=== PATIENT | male | born 1980 | race Caucasian/White ===

== ENCOUNTER 2016-06-18 12:57 | Inpatient (IN) | payer OTHER ==
[2016-06-18 14:00] VITALS: BMI 24.2
--- NOTE | 2016-06-18 14:46 | HP ---
COWS - Scale Resting Pulse: 0= [place] 80 or Below Sweatin=Flushed/Facial Moisture Restless Observation: 1= Difficult to Sit Still Pupil Size: 0= Normal to Room Light Bone or Joint Aches: 2= Severe Diffuse Aches Runny Nose/ Eye Tearin= Runny Nose/Eyes GI Upset > 30mins: 1= Stomach Cramp Tremor Observation: 2= Slight Tremor Visible Yawning Observation: 2= >3x During Session Anxiety or Irritability: 2=Irritable/Anxious Goose Flesh Skin: 3=Piloerection COWS Score: 17 Admission ROS S - HPI Chief Complaint: My birthday is coming up and I want to be clean. I need help. Allergies/Adverse Reactions: Allergies Allergy/AdvReac Type Severity Reaction Status Date / Time No Known Allergies Allergy Verified 06/18/16 14:38 History of Present Illness: Pt is a 35yr old male with a history of heroin and xanax dependence seeking detox for treatment. Exam Limitations: No Limitations - Ebola screening Have you traveled outside of the country in the last 21 days: No Have you had contact with anyone from an Ebola affected area: No Have you been sick,other than usual withdrawal symptoms: No Do you have a fever: No - Review of Systems Constitutional: Diaphoresis, Loss of Appetite, Night Sweats, Changes in sleep, Unintentional Wgt. Loss EENT: reports: Tearing, Nose Congestion Respiratory: reports: No Symptoms reported Cardiac: reports: No Symptoms Reported GI: reports: Poor Appetite, Poor Fluid Intake : reports: No Symptoms Reported Musculoskeletal: reports: No Symptoms Reported Integumentary: reports: Flushing, Sweating Neuro: reports: Tingling, Tremors Endocrine: reports: Excessive Sweating, Flushing, Intolerance to Cold, Intolerance to Heat Hematology: reports: No Symptoms Reported Psychiatric: reports: Judgement Intact, Mood/Affect Appropiate, Orientated x3, Agitated, Anxious Other Systems: Reviewed and Negative Patient History - Patient Medical History Hx Anemia: No Hx Asthma: No Hx Chronic Obstructive Pulmonary Disease (COPD): No Hx Cancer: No Hx Cardiac Disorders: No Hx Congestive Heart Failure: No Hx Hypertension: No Hx Hypercholesterolemia: No Hx Pacemaker: No HX Cerebrovascular Accident: No Hx Seizures: No Hx Dementia: No Hx Diabetes: No Hx Gastrointestinal Disorders: No Hx Liver Disease: No Hx Genitourinary Disorders: No Hx Sexually Transmitted Disorders: No Hx Renal Disease (ESRD): No Hx Thyroid Disease: No Hx Human Immunodeficiency Virus (HIV): No (negative) Hx Hepatitis C: No Hx Depression: Yes Hx Suicide Attempt: No (denies) Hx Bipolar Disorder: No Hx Schizophrenia: No - Patient Surgical History Past Surgical History: No - PPD History Previous Implant?: Yes Documented Results: Negative w/o proof PPD to be Administered?: Yes - Reproductive History Patient is a Female of Child Bearing Age (11 -55 yrs old): Yes - Smoking Cessation Smoking history: Current every day smoker Have you smoked in the past 12 months: Yes Aproximately how many cigarettes per day: 5 Hx Chewing Tobacco Use: No Initiated information on smoking cessation: Yes 'Breaking Loose' booklet given: 06/18/16 - Substance & Tx. History Hx Alcohol Use: No Substance Use Type: Cocaine, Heroin, Tranquilizers Hx Substance Use Treatment: Yes - Substances Abused Heroin Route: Inhalation Frequency: Daily Amount used: 3-5 bags Age of first use: 31 Date of Last Use: 06/17/16 Cocaine Route: Inhalation Frequency: 3-6 times per week Amount used: $20 Age of first use: 28 Date of Last Use: 06/17/16 Xanax Route: Oral Frequency: 1-2 times per week Amount used: 1-2 mg. Age of first use: 35 Date of Last Use: 06/17/16 Family Disease History - Family Disease History Family History: Denies Admission Physical Exam BHS - Vital Signs Vital Signs: Vital Signs - 24 hr 06/18/16 13:58 Temperature 96.8 F L Pulse Rate 77 Respiratory 18 Rate Blood Pressure 118/66 - Physical General Appearance: Yes: Appropriately Dressed, Moderate Distress, Tremorous, Irritable, Sweating, Anxious HEENTM: Yes: Hearing grossly Normal, Normal Voice Respiratory: Yes: Lungs Clear, Normal Breath Sounds, No Respiratory Distress Neck: Yes: Within Normal Limits Breast: Yes: Within Normal Limits Cardiology: Yes: Regular Rhythm, Regular Rate, S1, S2 Abdominal: Yes: Normal Bowel Sounds, Non Tender, Soft Genitourinary: Yes: Within Normal Limits Back: Yes: Normal Inspection Musculoskeletal: Yes: full range of Motion, Gait Steady, Back pain Extremities: Yes: Normal Capillary Refill, Normal Inspection, Non-Tender, Tremors Neurological: Yes: Fully Oriented, Alert, Normal Response Integumentary: Yes: Normal Color, Diaphoresis Lymphatic: Yes: Within Normal Limits - Diagnostic (1) Opioid dependence with withdrawal Current Visit: Yes Status: Chronic (2) Cocaine dependence Current Visit: Yes Status: Chronic Qualifiers: Substance use status: uncomplicated Qualified Code(s): F14.20 - Cocaine dependence, uncomplicated (3) Xanax use disorder, mild Current Visit: Yes Status: Chronic (4) Nicotine dependence Current Visit: Yes Status: Chronic Qualifiers: Nicotine product type: cigarettes Substance use status: uncomplicated Qualified Code(s): F17.210 - Nicotine dependence, cigarettes, uncomplicated Cleared for Admission [facility] - Detox or Rehab [facility] Level of Care: Medically Managed Detox Regimen/Protocol: Methadone [facility] Breath Alcohol Content Breath Alcohol Content: 0 Urine Drug Screen - Results Drug Screen Negative: No Urine Drug Screen Results: THC-Marijuana, MAGDA-Cocaine, OPI-Opiates, MDMA-Ecstasy , BZO-Benzodiazepines, OXY-Oxycodone
[2016-06-18] MEDS ORDERED: ACETAMINOPHEN 325 MG TABLET (FP) PO PRN (15:09)
[2016-06-18] MEDS ORDERED: MAG HYDROX/AL HYDROX/SIMETH 30 ML UNIT-DOSE CUP PO PRN (15:09)
[2016-06-18] MEDS ORDERED: LOPERAMIDE HCL 2 MG CAPSULE PO PRN (15:09)
[2016-06-18] MEDS ORDERED: hydrOXYzine PAMOATE 50 MG CAPSULE (FP) PO PRN (15:09)
[2016-06-18] MEDS ORDERED: MAGNESIUM CITRATE 300 ML BOTTLE PO PRN (15:09)
[2016-06-18] MEDS ORDERED: IBUPROFEN 400 MG TABLET (FP) PO PRN (15:09)
[2016-06-18] MEDS ORDERED: MENTHOL/PHENOL 1 EACH UD MM PRN (15:09)
[2016-06-18] MEDS ORDERED: MAGNESIUM HYDROX 2400MG/30ML ORAL SUSPENSION 30 ML CUP PO PRN (15:09)
[2016-06-18] MEDS ORDERED: P-EPHED 60MG/TRIPROLIDI 2.5MG TABLET PO PRN (15:09)
[2016-06-18] MEDS ORDERED: guaiFENesin/D-METHORPHAN HB 10 ML UNIT-DOSE CUPS PO PRN (15:09)
[2016-06-18] MEDS ORDERED: diphenhydrAMINE HCL 50 MG CAPSULE PO PRN (15:09)
[2016-06-18] MEDS ORDERED: METHADONE HCL 10 MG TABLET (FOR DETOX USE ONLY) PO ONE ×2 (16:45→23:00)
[2016-06-18] MEDS: diazePAM 5 MG TABLET PO PRN ×2 (17:01→23:03)
[2016-06-18] MEDS: THIAMINE HCL 100 MG TABLET (FP) PO SCH (22:09)
[2016-06-18 23:16] LABS: URINE APPEARANCE CLEAR; URINE BILIRUBIN NEGATIVE (NEGATIVE); URINE BLOOD NEGATIVE (NEGATIVE); URINE COLOR YELLOW; URINE GLUCOSE (UA) NEGATIVE (NEGATIVE); URINE KETONE NEGATIVE (NEGATIVE); URINE LEUK ESTERASE NEGATIVE (NEGATIVE); URINE NITRITE NEGATIVE (NEGATIVE); URINE PROTEIN NEGATIVE (NEGATIVE); URINE UROBILINOGEN NEGATIVE E.U./dl (0.2-1.0)
[2016-06-19] MEDS ORDERED: METHADONE HCL 10 MG TABLET (FOR DETOX USE ONLY) PO ONE (10:00)
[2016-06-19 10:08] LABS: MCHC 34.2 g/dl (32.0-35.9); MEAN CELL VOLUME 90.5 fl (80-96); MEAN PLT VOLUME 9.6 fl (7.5-11.1); PLATELET COUNT 252 K/MM3 (134-434); RDW 12.8 % (11.9-15.9); WHITE BLOOD COUNT 10.4 K/mm3 (4.0-10.0)
[2016-06-19 10:44] LABS: HIV 1 & 2 AB NEGATIVE; HIV 1 AGp24 NEGATIVE
[2016-06-19 10:47] LABS: ALK PHOS 72 U/L (45-117); ANION GAP 9 (8-16); BILIRUBIN,TOTAL 0.4 mg/dL (0.2-1.0); CALCIUM 8.5 mg/dL (8.5-10.1); CO2 31 mmol/L (21-32); GLUCOSE,RANDOM 83 mg/dL (74-106); SGOT/AST 11 U/L (15-37); SGPT/ALT 19 U/L (12-78); TOT PROT 6.7 g/dl (6.4-8.2)
--- NOTE | 2016-06-19 10:50 | PN ---
S CIWA - CIWA Score Nausea/Vomitin Muscle Tremors: 3 Anxiety: 3 Agitation: 3 Paroxysmal Sweats: 1-Minimal Palms Moist Orientation: 0-Oriented Tacttile Disturbances: 1-Very Mild Itch/Numbness Auditory Disturbances: 1-Very Mild Visual Disturbances: 1-Very Mild Sensitivity Headache: 2-Mild CIWA-Ar Total Score: 18 BHS COWS - Scale Resting Pulse: 0= [place] 80 or Below Sweatin= Chills/Flushing Restless Observation: 3= Extraneous Movement Pupil Size: 1= Pupils >than Normal Bone or Joint Aches: 2= Severe Diffuse Aches Runny Nose/ Eye Tearin= Runny Nose/Eyes GI Upset > 30mins: 3= Vomiting/Diarrhea Tremor Observation of Outstretched Hands: 2= Slight Tremor Visible Yawning Observation: 1= 1-2x During Session Anxiety or Irritability: 2=Irritable/Anxious Goose Flesh Skin: 0=Smooth Skin COWS Score: 17 S Progress Note (SOAP) Subjective: ALERT,IRRITABLE,ANXIOUS,INTERRUPTED SLEEP,TREMOR,PAIN IN THE BODY AND BACK Objective: 06/19/16 10:52 Vital Signs Temperature 98.1 F 06/19/16 10:26 Pulse Rate 62 06/19/16 10:26 Respiratory Rate 16 06/19/16 10:26 Blood Pressure 115/55 06/19/16 10:26 O2 Sat by Pulse Oximetry (%) EKG NSR Laboratory Last Values WBC 10.4 K/mm3 (4.0-10.0) H 06/19/16 06:00 RBC 4.35 M/mm3 (4.00-5.60) 06/19/16 06:00 Hgb 13.5 GM/dL (11.7-16.9) 06/19/16 06:00 Hct 39.3 % (35.4-49) 06/19/16 06:00 MCV 90.5 fl (80-96) 06/19/16 06:00 MCHC 34.2 g/dl (32.0-35.9) 06/19/16 06:00 RDW 12.8 % (11.9-15.9) 06/19/16 06:00 Plt Count 252 K/MM3 (134-434) 06/19/16 06:00 MPV 9.6 fl (7.5-11.1) 06/19/16 06:00 Sodium 144 mmol/L (136-145) 06/19/16 06:00 Potassium 4.0 mmol/L (3.5-5.1) 06/19/16 06:00 Chloride 104 mmol/L (98-107) 06/19/16 06:00 Urine Color Yellow 06/18/16 23:00 Urine Appearance Clear 06/18/16 23:00 Urine pH 5.0 (5.0-8.0) 06/18/16 23:00 Ur Specific [place] 1.029 (1.001-1.035) 06/18/16 23:00 Urine Protein Negative (NEGATIVE) 06/18/16 23:00 Urine Glucose (UA) Negative (NEGATIVE) 06/18/16 23:00 Urine Ketones Negative (NEGATIVE) 06/18/16 23:00 Urine Blood Negative (NEGATIVE) 06/18/16 23:00 Urine Nitrite Negative (NEGATIVE) 06/18/16 23:00 Urine Bilirubin Negative (NEGATIVE) 06/18/16 23:00 Urine Urobilinogen Negative E.U./dl (0.2-1.0) 06/18/16 23:00 Ur Leukocyte Esterase Negative (NEGATIVE) 06/18/16 23:00 HIV 1&2 Antibody Screen Negative 06/18/16 08:50 HIV P24 Antigen Negative 06/18/16 08:50 Assessment: 06/19/16 10:52 WITHDRAWAL SYMPTOM Plan: CONTINUE DETOX,ENCOURAGE ORAL FLUID
[2016-06-19] MEDS: PRENATAL VITAMINS W/ FOLIC ACID TABLET (FP) PO SCH (10:53)
[2016-06-19] MEDS: diazePAM 5 MG TABLET PO PRN ×2 (10:53→17:36)
[2016-06-19] MEDS: NICOTINE POLACRILEX 4 MG GUM BC PRN (10:55)
[2016-06-19] MEDS: NICOTINE 21 MG/24 HOURS TOPICAL PATCH TD SCH (11:33)
--- NOTE | 2016-06-19 14:59 | CONSULT ---
[facility] Psychiatric Consult - Data Date of interview: 06/19/16 Admission source: [facility] Identifying data: This is a 35 year old single white male who is unemployed and homeless. Substance Abuse History: PAtient reports using heroin 5-10 bags daily, cocaine $ 20 daily, xanax 1-2 times a week 2 mg. Medical History: Patient reports s good physical health. Smokes cigarettes 5 a day. Psychiatric History: Patient reportshe feels depressed due to his inablity to stop using drugs, reports he saw the psychiatrist while at [facility] 28 days program, reports he had a therapy sessio and not medications. Patient reports that he feels like a failure, lost his job, homeless and strained relatioship with his family. Physical/Sexual Abuse/Trauma History: denies Mental Status Exam - Mental Status Exam Alert and Oriented to: Time, Place, Person Cognitive Function: Grossly Intact Patient Appearance: Well Groomed Mood: Sad, Anxious Affect: Mood Congruent Patient Behavior: Appropriate, Cooperative Speech Pattern: Clear, Appropriate Voice Loudness: Normal Thought Process: Goal Oriented Thought Disorder: Not Present Hallucinations: Denies Suicidal Ideation: Denies Homicidal Ideation: Denies Insight/Judgement: Fair Sleep: Well Appetite: Fair Muscle strength/Tone: Normal Gait/Station: Normal Psychiatric Findings - Problem List ([place] 1, 2,3) (1) Cocaine dependence Current Visit: Yes Status: Chronic Qualifiers: Substance use status: uncomplicated Qualified Code(s): F14.20 - Cocaine dependence, uncomplicated (2) Nicotine dependence Current Visit: Yes Status: Chronic Qualifiers: Nicotine product type: cigarettes Substance use status: uncomplicated Qualified Code(s): F17.210 - Nicotine dependence, cigarettes, uncomplicated (3) Opioid dependence with withdrawal Current Visit: Yes Status: Chronic (4) Xanax use disorder, mild Current Visit: Yes Status: Chronic - Initial Treatment Plan Initial Treatment Plan: Patient was recommended to start antidepressant , but he declined reported he does not need other drugs, continue detox. protocol and support.
--- NOTE | 2016-06-19 16:30 | EKG ---
Test Reason : Blood Pressure : / mmHG Vent. Rate : 062 BPM Atrial Rate : 062 BPM P-R Int : 188 ms QRS Dur : 084 ms QT Int : 372 ms P-R-T Axes : 033 025 030 degrees QTc Int : 377 ms POOR DATA QUALITY, INTERPRETATION MAY BE ADVERSELY AFFECTED NORMAL SINUS RHYTHM NORMAL ECG NO PREVIOUS ECGS AVAILABLE Confirmed by MARIANELA BANEGAS MD ([id number]) on 06/19/2016 4:30:03 PM Referred By: Confirmed By:MARIANELA BANEGAS MD
[2016-06-19] MEDS: THIAMINE HCL 100 MG TABLET (FP) PO SCH (23:00)
[2016-06-20] MEDS ORDERED: METHADONE HCL 5 MG TABLET (FOR DETOX USE ONLY) PO ONE (10:00)
[2016-06-20] MEDS: PRENATAL VITAMINS W/ FOLIC ACID TABLET (FP) PO SCH (10:57)
[2016-06-20] MEDS: NICOTINE 21 MG/24 HOURS TOPICAL PATCH TD SCH (10:58)
[2016-06-20] MEDS: diazePAM 5 MG TABLET PO PRN ×3 (10:58→19:49)
[2016-06-20] MEDS: NICOTINE POLACRILEX 4 MG GUM BC PRN (11:01)
--- NOTE | 2016-06-20 11:07 | PN ---
S CIWA - CIWA Score Nausea/Vomitin Muscle Tremors: 3 Anxiety: 2 Agitation: 2 Paroxysmal Sweats: 1-Minimal Palms Moist Orientation: 0-Oriented Tacttile Disturbances: 1-Very Mild Itch/Numbness Auditory Disturbances: 1-Very Mild Visual Disturbances: 1-Very Mild Sensitivity Headache: 2-Mild CIWA-Ar Total Score: 16 BHS COWS - Scale Resting Pulse: 1= [place] 81-100 Sweatin= Chills/Flushing Restless Observation: 3= Extraneous Movement Pupil Size: 1= Pupils >than Normal Bone or Joint Aches: 2= Severe Diffuse Aches Runny Nose/ Eye Tearin= Runny Nose/Eyes GI Upset > 30mins: 3= Vomiting/Diarrhea Tremor Observation of Outstretched Hands: 2= Slight Tremor Visible Yawning Observation: 1= 1-2x During Session Anxiety or Irritability: 2=Irritable/Anxious Goose Flesh Skin: 0=Smooth Skin COWS Score: 18 S Progress Note (SOAP) Subjective: ALERT,IRRITABLE,ANXIOUS,TREMOR,PAIN IN THE BODY AND BACK,INTERRUPTED SLEEP Objective: 06/20/16 11:05 Vital Signs Temperature 98.2 F 06/20/16 09:52 Pulse Rate 86 06/20/16 09:52 Respiratory Rate 20 06/20/16 09:52 Blood Pressure 122/66 06/20/16 09:52 O2 Sat by Pulse Oximetry (%) Laboratory Last Values WBC 10.4 K/mm3 (4.0-10.0) H 06/19/16 06:00 RBC 4.35 M/mm3 (4.00-5.60) 06/19/16 06:00 Hgb 13.5 GM/dL (11.7-16.9) 06/19/16 06:00 Hct 39.3 % (35.4-49) 06/19/16 06:00 MCV 90.5 fl (80-96) 06/19/16 06:00 MCHC 34.2 g/dl (32.0-35.9) 06/19/16 06:00 RDW 12.8 % (11.9-15.9) 06/19/16 06:00 Plt Count 252 K/MM3 (134-434) 06/19/16 06:00 MPV 9.6 fl (7.5-11.1) 06/19/16 06:00 Sodium 144 mmol/L (136-145) 06/19/16 06:00 Potassium 4.0 mmol/L (3.5-5.1) 06/19/16 06:00 Chloride 104 mmol/L (98-107) 06/19/16 06:00 Carbon Dioxide 31 mmol/L (21-32) 06/19/16 06:00 Anion Gap 9 (8-16) 06/19/16 06:00 BUN 17 mg/dL (7-18) 06/19/16 06:00 Creatinine 1.0 mg/dL (0.7-1.3) 06/19/16 06:00 Creat Clearance w eGFR > 60 (>60) 06/19/16 06:00 Random Glucose 83 mg/dL (74-106) 06/19/16 06:00 Calcium 8.5 mg/dL (8.5-10.1) 06/19/16 06:00 Total Bilirubin 0.4 mg/dL (0.2-1.0) 06/19/16 06:00 AST 11 U/L (15-37) L 06/19/16 06:00 ALT 19 U/L (12-78) 06/19/16 06:00 Alkaline Phosphatase 72 U/L (45-117) 06/19/16 06:00 Total Protein 6.7 g/dl (6.4-8.2) 06/19/16 06:00 Albumin 4.0 g/dl (3.4-5.0) 06/19/16 06:00 Urine Color Yellow 06/18/16 23:00 Urine Appearance Clear 06/18/16 23:00 Urine pH 5.0 (5.0-8.0) 06/18/16 23:00 Ur Specific [place] 1.029 (1.001-1.035) 06/18/16 23:00 Urine Protein Negative (NEGATIVE) 06/18/16 23:00 Urine Glucose (UA) Negative (NEGATIVE) 06/18/16 23:00 Urine Ketones Negative (NEGATIVE) 06/18/16 23:00 Urine Blood Negative (NEGATIVE) 06/18/16 23:00 Urine Nitrite Negative (NEGATIVE) 06/18/16 23:00 Urine Bilirubin Negative (NEGATIVE) 06/18/16 23:00 Urine Urobilinogen Negative E.U./dl (0.2-1.0) 06/18/16 23:00 Ur Leukocyte Esterase Negative (NEGATIVE) 06/18/16 23:00 RPR Titer Nonreactive (NONREACTIVE) 06/19/16 06:00 HIV 1&2 Antibody Screen Negative 06/18/16 08:50 HIV P24 Antigen Negative 06/18/16 08:50 Assessment: 06/20/16 11:06 WITHDRAWAL SYMPTOM Plan: CONTINUE DETOX
[2016-06-20] MEDS: THIAMINE HCL 100 MG TABLET (FP) PO SCH (22:49)
[2016-06-21] MEDS ORDERED: METHADONE HCL 5 MG TABLET (FOR DETOX USE ONLY) PO ONE (10:00)
[2016-06-21 10:40] VITALS: BP 116/71; PULSE 77; TEMP 97.1
[2016-06-21] MEDS: PRENATAL VITAMINS W/ FOLIC ACID TABLET (FP) PO SCH (11:18)
[2016-06-21] MEDS: NICOTINE 21 MG/24 HOURS TOPICAL PATCH TD SCH (11:18)
[2016-06-21] MEDS: diazePAM 5 MG TABLET PO PRN (11:19)
--- NOTE | 2016-06-21 15:07 | DS ---
[facility] Detox Discharge Summary Admission Date: 06/18/16 Discharge Date: 06/21/16 - History Present History: Cocaine Dependence, Opioid Dependence, Sedative Dependence Additional Comments: ADVISED PATIENT TO FOLLOW-UP WITH [facility] FOR GENERAL MEDICAL ASSESSMENT. Pertinent Past History: Depression. - Physical Exam Results Vital Signs: Vital Signs Temperature 97.1 F L 06/21/16 10:00 Pulse Rate 77 06/21/16 10:00 Respiratory Rate 18 06/21/16 10:00 Blood Pressure 116/71 06/21/16 10:00 O2 Sat by Pulse Oximetry (%) Pertinent Admission Physical Exam Findings: WITHDRAWAL SYMPTOMS. Laboratory Last Values WBC 10.4 K/mm3 (4.0-10.0) H 06/19/16 06:00 RBC 4.35 M/mm3 (4.00-5.60) 06/19/16 06:00 Hgb 13.5 GM/dL (11.7-16.9) 06/19/16 06:00 Hct 39.3 % (35.4-49) 06/19/16 06:00 MCV 90.5 fl (80-96) 06/19/16 06:00 MCHC 34.2 g/dl (32.0-35.9) 06/19/16 06:00 RDW 12.8 % (11.9-15.9) 06/19/16 06:00 Plt Count 252 K/MM3 (134-434) 06/19/16 06:00 MPV 9.6 fl (7.5-11.1) 06/19/16 06:00 Sodium 144 mmol/L (136-145) 06/19/16 06:00 Potassium 4.0 mmol/L (3.5-5.1) 06/19/16 06:00 Chloride 104 mmol/L (98-107) 06/19/16 06:00 Carbon Dioxide 31 mmol/L (21-32) 06/19/16 06:00 Anion Gap 9 (8-16) 06/19/16 06:00 BUN 17 mg/dL (7-18) 06/19/16 06:00 Creatinine 1.0 mg/dL (0.7-1.3) 06/19/16 06:00 Creat Clearance w eGFR > 60 (>60) 06/19/16 06:00 Random Glucose 83 mg/dL (74-106) 06/19/16 06:00 Calcium 8.5 mg/dL (8.5-10.1) 06/19/16 06:00 Total Bilirubin 0.4 mg/dL (0.2-1.0) 06/19/16 06:00 AST 11 U/L (15-37) L 06/19/16 06:00 ALT 19 U/L (12-78) 06/19/16 06:00 Alkaline Phosphatase 72 U/L (45-117) 06/19/16 06:00 Total Protein 6.7 g/dl (6.4-8.2) 06/19/16 06:00 Albumin 4.0 g/dl (3.4-5.0) 06/19/16 06:00 Urine Color Yellow 06/18/16 23:00 Urine Appearance Clear 06/18/16 23:00 Urine pH 5.0 (5.0-8.0) 06/18/16 23:00 Ur Specific [place] 1.029 (1.001-1.035) 06/18/16 23:00 Urine Protein Negative (NEGATIVE) 06/18/16 23:00 Urine Glucose (UA) Negative (NEGATIVE) 06/18/16 23:00 Urine Ketones Negative (NEGATIVE) 06/18/16 23:00 Urine Blood Negative (NEGATIVE) 06/18/16 23:00 Urine Nitrite Negative (NEGATIVE) 06/18/16 23:00 Urine Bilirubin Negative (NEGATIVE) 06/18/16 23:00 Urine Urobilinogen Negative E.U./dl (0.2-1.0) 06/18/16 23:00 Ur Leukocyte Esterase Negative (NEGATIVE) 06/18/16 23:00 RPR Titer Nonreactive (NONREACTIVE) 06/19/16 06:00 HIV 1&2 Antibody Screen Negative 06/18/16 08:50 HIV P24 Antigen Negative 06/18/16 08:50 LABS NOTED. - Treatment Hospital Course: Detoxed Safely - Medication Discharge Medications: Ambulatory Orders NK [No Known Home Medication] 06/18/16 - Diagnosis (1) Cocaine dependence Status: Acute Qualifiers: Substance use status: uncomplicated Qualified Code(s): F14.20 - Cocaine dependence, uncomplicated (2) Nicotine dependence Status: Chronic Qualifiers: Nicotine product type: cigarettes Substance use status: uncomplicated Qualified Code(s): F17.210 - Nicotine dependence, cigarettes, uncomplicated (3) Opioid dependence with withdrawal Status: Acute (4) Xanax use disorder, mild Status: Acute - AMA Did Patient Leave Against Medical Advice: Yes (PATIENT DID NOT WANT TO STAY TO COMPLETE DETOX REGIMEN.)
[2016-06-22] MEDS ORDERED: METHADONE HCL 10 MG TABLET (FOR DETOX USE ONLY) PO ONE (10:00)
[2016-06-23] MEDS ORDERED: METHADONE HCL 5 MG TABLET (FOR DETOX USE ONLY) PO ONE (06:00)
== END 2016-06-21 13:50 | disposition left against medical advice (07) | DRG 770 ==
LOC: YASAS 12:57 → Y6N 15:57
PROVIDERS: ADMIT Internal Medicine Addiction Medicine; ATTEND Internal Medicine Addiction Medicine
PROC: HZ2ZZZZ Detoxification Services for Substance Abuse Treatment (ICD-10-PCS; principal; 2016-06-21)
DX: F11.23 Opioid dependence with withdrawal (principal); F14.20 Cocaine dependence, uncomplicated; F17.210 Nicotine dependence, cigarettes, uncomplicated; F13.10 Sedative, hypnotic or anxiolytic abuse, uncomplicated; Z59.0 Homelessness
CPT/HCPCS: 36415; 80053; 81003; 85027; 86593; 87389; 93005; 93010

== ENCOUNTER 2016-10-31 17:30 | Inpatient (IN) | payer OTHER ==
[2016-10-31 18:58] VITALS: BMI 22.4
--- NOTE | 2016-10-31 20:39 | HP ---
COWS - Scale Resting Pulse: 0= [place] 80 or Below Sweatin= Chills/Flushing Restless Observation: 1= Difficult to Sit Still Pupil Size: 1= Pupils >than Normal Bone or Joint Aches: 2= Severe Diffuse Aches Runny Nose/ Eye Tearin= Runny Nose/Eyes GI Upset > 30mins: 2= Nausea/Diarrhea Tremor Observation: 2= Slight Tremor Visible Yawning Observation: 1= 1-2x During Session Anxiety or Irritability: 2=Irritable/Anxious Goose Flesh Skin: 0=Smooth Skin COWS Score: 14 Admission [facility] Chief Complaint: WITHDRAWAL SX Allergies/Adverse Reactions: Allergies Allergy/AdvReac Type Severity Reaction Status Date / Time No Known Allergies Allergy Verified 10/31/16 20:45 History of Present Illness: 36 YEARS OLD MALE WITH LONG HISTORY OF OPIATE COCAINE MARIJUANA, NICOTINE DEPENDENCE HAS WEIGHT LOSS DENIES MENTAL ILLNESS IS ADMITTED TO DETOX Exam Limitations: No Limitations - Ebola screening Have you traveled outside of the country in the last 21 days: No (N) Have you had contact with anyone from an Ebola affected area: No Have you been sick,other than usual withdrawal symptoms: No Do you have a fever: No - Review of Systems Constitutional: Loss of Appetite, Changes in sleep, Unintentional Wgt. Loss, Unexplained wgt Loss EENT: reports: No Symptoms Reported Respiratory: reports: No Symptoms reported Cardiac: reports: No Symptoms Reported GI: reports: Nausea, Poor Appetite, Poor Fluid Intake, Abdominal cramping : reports: No Symptoms Reported Musculoskeletal: reports: Back Pain, Joint Pain, Muscle Pain, Neck Pain Integumentary: reports: No Symptoms Reported Neuro: reports: Tremors Endocrine: reports: No Symptoms Reported Hematology: reports: No Symptoms Reported Psychiatric: reports: Judgement Intact, Mood/Affect Appropiate, Orientated x3 Other Systems: Reviewed and Negative Patient History - Patient Medical History Hx Anemia: No Hx Asthma: No Hx Chronic Obstructive Pulmonary Disease (COPD): No Hx Cancer: No Hx Cardiac Disorders: No Hx Congestive Heart Failure: No Hx Hypertension: No Hx Hypercholesterolemia: No Hx Pacemaker: No HX Cerebrovascular Accident: No Hx Seizures: No Hx Dementia: No Hx Diabetes: No Hx Gastrointestinal Disorders: No Hx Liver Disease: No Hx Genitourinary Disorders: No Hx Sexually Transmitted Disorders: No Hx Renal Disease (ESRD): No Hx Thyroid Disease: No Hx Human Immunodeficiency Virus (HIV): No (negative) Hx Hepatitis C: No Hx Depression: No Hx Suicide Attempt: No (denies) Hx Bipolar Disorder: No Hx Schizophrenia: No - Patient Surgical History Past Surgical History: No Hx Neurologic Surgery: No Hx Cataract Extraction: No Hx Cardiac Surgery: No Hx Lung Surgery: No Hx Breast Surgery: No Hx Breast Biopsy: No Hx Abdominal Surgery: No Hx Appendectomy: No Hx Cholecystectomy: No Hx Genitourinary Surgery: No Hx Orthopedic Surgery: No - PPD History Previous Implant?: Yes Documented Results: Negative w/proof Implanted On Prior R Admission?: Yes Date: 06/20/16 PPD to be Administered?: No - Smoking Cessation Smoking history: Current every day smoker Have you smoked in the past 12 months: Yes Aproximately how many cigarettes per day: 5 Cigars Per Day: 0 Hx Chewing Tobacco Use: No Initiated information on smoking cessation: Yes 'Breaking Loose' booklet given: 10/24/16 - Substance & Tx. History Hx Alcohol Use: No Hx Substance Use: Yes Substance Use Type: Cocaine, Heroin, Marijuana Hx Substance Use Treatment: Yes (06/18-06/21/16 [facility] - Substances Abused Heroin Route: Inhalation Frequency: Daily Amount used: 10 BAGS Age of first use: 33 Date of Last Use: 10/31/16 Cocaine Route: Inhalation Frequency: Daily Amount used: 1 G Age of first use: 29 Date of Last Use: 10/31/16 Marijuana/Hashish Route: Smoking Frequency: Daily Amount used: 1 G Age of first use: 15 Date of Last Use: 10/31/16 Family Disease History - Family Disease History Family Disease History: Diabetes: Grandparent, Father Admission Physical Exam S - Vital Signs Vital Signs: Vital Signs - 24 hr 10/31/16 18:56 Temperature 98.0 F Pulse Rate 80 Respiratory 18 Rate Blood Pressure 115/75 - Physical General Appearance: Yes: Appropriately Dressed, Mild Distress, Thin, Tremorous, Irritable, Sweating, Anxious HEENTM: Yes: Hearing grossly Normal, Normal ENT Inspection, Normocephalic, Normal Voice Respiratory: Yes: Chest Non-Tender, Lungs Clear, Normal Breath Sounds, No Respiratory Distress, No Accessory Muscle Use Neck: Yes: Supple, Trachea in good position Breast: Yes: Breasts Symetrical Cardiology: Yes: Regular Rhythm, Regular Rate, S1, S2 Abdominal: Yes: Non Tender, Soft Genitourinary: Yes: Within Normal Limits Back: Yes: Normal Inspection Musculoskeletal: Yes: full range of Motion, Gait Steady, Back pain, Muscle Pain Extremities: Yes: Normal Range of Motion, Non-Tender, Tremors Neurological: Yes: Fully Oriented, Alert, Motor Strength 5/5, Normal Mood/Affect , Normal Response Integumentary: Yes: Warm Lymphatic: Yes: Within Normal Limits - Diagnostic (1) Opioid dependence with withdrawal Current Visit: Yes Status: Acute (2) Nicotine dependence Current Visit: Yes Status: Acute Qualifiers: Nicotine product type: cigarettes Substance use status: in withdrawal Qualified Code(s): F17.213 - Nicotine dependence, cigarettes, with withdrawal (3) Cocaine dependence, uncomplicated Current Visit: Yes Status: Chronic (4) Cannabis dependence, uncomplicated Current Visit: Yes Status: Chronic (5) Weight loss Current Visit: Yes Status: Acute Cleared for Admission [facility] - Detox or Rehab [facility] Level of Care: Medically Managed Detox Regimen/Protocol: Methadone [facility] Breath Alcohol Content Breath Alcohol Content: 0 Urine Drug Screen - Results Drug Screen Negative: No Urine Drug Screen Results: THC-Marijuana, MAGDA-Cocaine, OPI-Opiates
[2016-10-31] MEDS ORDERED: ACETAMINOPHEN 325 MG TABLET (FP) PO PRN (20:48)
[2016-10-31] MEDS ORDERED: IBUPROFEN 400 MG TABLET (FP) PO PRN (20:48)
[2016-10-31] MEDS ORDERED: MAG HYDROX/AL HYDROX/SIMETH 30 ML UNIT-DOSE CUP PO PRN (20:48)
[2016-10-31] MEDS ORDERED: P-EPHED 60MG/TRIPROLIDI 2.5MG TABLET PO PRN (20:48)
[2016-10-31] MEDS ORDERED: MAGNESIUM CITRATE 300 ML BOTTLE PO PRN (20:48)
[2016-10-31] MEDS ORDERED: guaiFENesin/D-METHORPHAN HB 10 ML UNIT-DOSE CUPS PO PRN (20:48)
[2016-10-31] MEDS ORDERED: MENTHOL/PHENOL 1 EACH UD MM PRN (20:48)
[2016-10-31] MEDS ORDERED: LOPERAMIDE HCL 2 MG CAPSULE PO PRN (20:48)
[2016-10-31] MEDS ORDERED: MAGNESIUM HYDROX 2400MG/30ML ORAL SUSPENSION 30 ML CUP PO PRN (20:48)
[2016-10-31] MEDS ORDERED: METHADONE HCL 10 MG TABLET (FOR DETOX USE ONLY) PO ONE ×2 (20:48→23:00)
[2016-10-31] MEDS: diazePAM 5 MG TABLET PO PRN (21:37)
[2016-10-31] MEDS: THIAMINE HCL 100 MG TABLET (FP) PO SCH (21:38)
[2016-10-31] MEDS: diphenhydrAMINE HCL 50 MG CAPSULE PO PRN (22:33)
[2016-11-01] MEDS: diazePAM 5 MG TABLET PO PRN ×4 (05:24→22:17)
[2016-11-01] MEDS: NICOTINE POLACRILEX 2 MG GUM BUC PRN ×2 (05:46→22:18)
[2016-11-01] MEDS ORDERED: METHADONE HCL 10 MG TABLET (FOR DETOX USE ONLY) PO ONE (10:00)
[2016-11-01] MEDS: PRENATAL VITAMINS W/ FOLIC ACID TABLET (FP) PO SCH (10:19)
[2016-11-01] MEDS: NICOTINE 14 MG/24 HOURS TOPICAL PATCH TD SCH (10:20)
[2016-11-01 11:07] LABS: URINE APPEARANCE SLCLOUDY; URINE BILIRUBIN NEGATIVE (NEGATIVE); URINE BLOOD NEGATIVE (NEGATIVE); URINE COLOR YELLOW; URINE GLUCOSE (UA) NEGATIVE (NEGATIVE); URINE KETONE NEGATIVE (NEGATIVE); URINE LEUK ESTERASE NEGATIVE (NEGATIVE); URINE NITRITE NEGATIVE (NEGATIVE); URINE PROTEIN NEGATIVE (NEGATIVE); URINE UROBILINOGEN NEGATIVE mg/dL (0.2-1.0)
[2016-11-01 11:08] LABS: MCH 31.5 pg (25.7-33.7); MCHC 34.7 g/dl (32.0-35.9); MEAN CELL VOLUME 90.8 fl (80-96); MEAN PLT VOLUME 9.1 fl (7.5-11.1); PLATELET COUNT 212 K/MM3 (134-434); RDW 13.1 % (11.9-15.9); WHITE BLOOD COUNT 6.5 K/mm3 (4.0-10.0)
[2016-11-01 11:11] LABS: ALBUMIN 3.4 g/dl (3.4-5.0); ANION GAP 7 (8-16); CALCIUM 8.4 mg/dL (8.5-10.1); CO2 32 mmol/L (21-32); GLUCOSE,RANDOM 80 mg/dL (74-106); SGOT/AST 9 U/L (15-37)
[2016-11-01 11:14] LABS: ALK PHOS 54 U/L (45-117); BILIRUBIN,TOTAL 0.4 mg/dL (0.2-1.0); SGPT/ALT 15 U/L (12-78); TOT PROT 5.6 g/dl (6.4-8.2)
--- NOTE | 2016-11-01 18:44 | EKG ---
Test Reason : Blood Pressure : / mmHG Vent. Rate : 060 BPM Atrial Rate : 060 BPM P-R Int : 162 ms QRS Dur : 084 ms QT Int : 390 ms P-R-T Axes : 028 033 025 degrees QTc Int : 390 ms NORMAL SINUS RHYTHM WITH SINUS ARRHYTHMIA NORMAL ECG WHEN COMPARED WITH ECG OF 18-JUN-2016 16:04, NO SIGNIFICANT CHANGE WAS FOUND Confirmed by DANYELLE SHARPE MD ([id number]) on 11/01/2016 6:44:26 PM Referred By: Confirmed By:DANYELLE SHARPE MD
--- NOTE | 2016-11-01 19:02 | PN ---
BHS COWS - Scale Resting Pulse: 1= [place] 81-100 Sweatin= Chills/Flushing Restless Observation: 1= Difficult to Sit Still Pupil Size: 0= Normal to Room Light Bone or Joint Aches: 1= Mild Discomfort Runny Nose/ Eye Tearin= Runny Nose/Eyes GI Upset > 30mins: 1= Stomach Cramp Tremor Observation of Outstretched Hands: 2= Slight Tremor Visible Yawning Observation: 1= 1-2x During Session Anxiety or Irritability: 2=Irritable/Anxious Goose Flesh Skin: 3=Piloerection COWS Score: 15 BHS Progress Note (SOAP) Subjective: Stomach Cramping, Sweating. Objective: PT. A & O X 3, OBSERVED AMBULATING ON UNIT. NO ACUTE DISTRESS. 11/01/16 19:00 Vital Signs Temperature 98.4 F 11/01/16 18:45 Pulse Rate 65 11/01/16 18:45 Respiratory Rate 18 11/01/16 18:45 Blood Pressure 121/71 11/01/16 18:45 O2 Sat by Pulse Oximetry (%) Laboratory Tests 10/31/16 11/01/16 11/01/16 10:55 08:00 08:00 WBC 6.5 D RBC 3.87 L Hgb 12.2 Hct 35.2 L MCV 90.8 MCH 31.5 MCHC 34.7 RDW 13.1 Plt Count 212 MPV 9.1 Sodium 144 Potassium 3.7 Chloride 105 Carbon Dioxide 32 Anion Gap 7 L BUN 18 Creatinine 1.0 Creat Clearance w eGFR > 60 Random Glucose 80 Calcium 8.4 L Total Bilirubin 0.4 AST 9 L ALT 15 D Alkaline Phosphatase 54 D Total Protein 5.6 L Albumin 3.4 Urine Color Yellow Urine Appearance Slcloudy Urine pH 5.0 Ur Specific [place] >= 1.030 H Urine Protein Negative Urine Glucose (UA) Negative Urine Ketones Negative Urine Blood Negative Urine Nitrite Negative Urine Bilirubin Negative Urine Urobilinogen Negative Ur Leukocyte Esterase Negative RPR Titer 11/01/16 08:00 WBC RBC Hgb Hct MCV MCH MCHC RDW Plt Count MPV Sodium Potassium Chloride Carbon Dioxide Anion Gap BUN Creatinine Creat Clearance w eGFR Random Glucose Calcium Total Bilirubin AST ALT Alkaline Phosphatase Total Protein Albumin Urine Color Urine Appearance Urine pH Ur Specific [place] Urine Protein Urine Glucose (UA) Urine Ketones Urine Blood Urine Nitrite Urine Bilirubin Urine Urobilinogen Ur Leukocyte Esterase RPR Titer Nonreactive LABS NOTED. HCV ANTIBODY RESULT PENDING. 11/01/16 19:02 Assessment: 11/01/16 19:01 WITHDRAWAL SYMPTOMS. Plan: CONTINUE DETOX.
[2016-11-01] MEDS: THIAMINE HCL 100 MG TABLET (FP) PO SCH (22:55)
[2016-11-02] MEDS: diazePAM 5 MG TABLET PO PRN ×4 (05:10→22:13)
[2016-11-02] MEDS ORDERED: METHADONE HCL 5 MG TABLET (FOR DETOX USE ONLY) PO ONE (10:00)
[2016-11-02] MEDS: NICOTINE 14 MG/24 HOURS TOPICAL PATCH TD SCH (10:18)
[2016-11-02] MEDS: PRENATAL VITAMINS W/ FOLIC ACID TABLET (FP) PO SCH (10:18)
[2016-11-02] MEDS: NICOTINE POLACRILEX 2 MG GUM BUC PRN ×2 (10:20→22:15)
--- NOTE | 2016-11-02 14:57 | PN ---
BHS COWS - Scale Resting Pulse: 0= [place] 80 or Below Sweatin=Flushed/Facial Moisture Restless Observation: 3= Extraneous Movement Pupil Size: 1= Pupils >than Normal Bone or Joint Aches: 2= Severe Diffuse Aches Runny Nose/ Eye Tearin= Runny Nose/Eyes GI Upset > 30mins: 0= None Tremor Observation of Outstretched Hands: 2= Slight Tremor Visible Yawning Observation: 1= 1-2x During Session Anxiety or Irritability: 2=Irritable/Anxious Goose Flesh Skin: 0=Smooth Skin COWS Score: 15 BHS Progress Note (SOAP) Subjective: Sweating, tremor, chills, anxious Objective: 11/02/16 14:56 Last Vital Signs Temp Pulse Resp BP Pulse Ox 96.8 F L 69 18 107/73 11/02/16 13:38 11/02/16 13:38 11/02/16 13:38 11/02/16 13:38 Laboratory Tests 10/31/16 11/01/16 11/01/16 10:55 08:00 08:00 WBC 6.5 D RBC 3.87 L Hgb 12.2 Hct 35.2 L MCV 90.8 MCH 31.5 MCHC 34.7 RDW 13.1 Plt Count 212 MPV 9.1 Sodium Potassium Chloride Carbon Dioxide Anion Gap BUN Creatinine Creat Clearance w eGFR Random Glucose Calcium Total Bilirubin AST ALT Alkaline Phosphatase Total Protein Albumin Urine Color Yellow Urine Appearance Slcloudy Urine pH 5.0 Ur Specific [place] >= 1.030 H Urine Protein Negative Urine Glucose (UA) Negative Urine Ketones Negative Urine Blood Negative Urine Nitrite Negative Urine Bilirubin Negative Urine Urobilinogen Negative Ur Leukocyte Esterase Negative RPR Titer Hepatitis C Antibody <0.1 11/01/16 11/01/16 08:00 08:00 WBC RBC Hgb Hct MCV MCH MCHC RDW Plt Count MPV Sodium 144 Potassium 3.7 Chloride 105 Carbon Dioxide 32 Anion Gap 7 L BUN 18 Creatinine 1.0 Creat Clearance w eGFR > 60 Random Glucose 80 Calcium 8.4 L Total Bilirubin 0.4 AST 9 L ALT 15 D Alkaline Phosphatase 54 D Total Protein 5.6 L Albumin 3.4 Urine Color Urine Appearance Urine pH Ur Specific [place] Urine Protein Urine Glucose (UA) Urine Ketones Urine Blood Urine Nitrite Urine Bilirubin Urine Urobilinogen Ur Leukocyte Esterase RPR Titer Nonreactive Hepatitis C Antibody Labs reviewed Assessment: 11/02/16 14:56 Withdrawal symptoms Plan: Continue detox
[2016-11-02] MEDS: THIAMINE HCL 100 MG TABLET (FP) PO SCH (22:13)
[2016-11-02] MEDS: diphenhydrAMINE HCL 50 MG CAPSULE PO PRN (22:13)
[2016-11-03] MEDS: diazePAM 5 MG TABLET PO PRN (06:09)
[2016-11-03 09:28] VITALS: BP 104/75; PULSE 88; TEMP 97.2
[2016-11-03] MEDS ORDERED: METHADONE HCL 5 MG TABLET (FOR DETOX USE ONLY) PO ONE (10:00)
--- NOTE | 2016-11-03 12:12 | DS ---
[facility] Detox Discharge Summary Admission Date: 10/31/16 Discharge Date: 11/03/16 - History Present History: Cannabis Dependence, Cocaine Dependence, Opioid Dependence Additional Comments: PATIENT DOES NOT WISH TO STAY TO COMPLETE DETOX REGIMEN. PATIENT ADVISED TO IMMEDIATELY GO TO NEAREST ER SHOULD HE EXPERIENCE ANY INTOLERABLE DETOX SYMPTOMS AT ANY TIME. PATIENT VERBALIZED UNDERSTANDING OF RECOMMENDATION. PATIENT LEFT UNIT IN STABLE MEDICAL CONDITION. Pertinent Past History: Weight Loss. - Physical Exam Results Vital Signs: Vital Signs Temperature 97.2 F L 11/03/16 09:27 Pulse Rate 88 11/03/16 09:27 Respiratory Rate 18 11/03/16 09:27 Blood Pressure 104/75 11/03/16 09:27 O2 Sat by Pulse Oximetry (%) Pertinent Admission Physical Exam Findings: WITHDRAWAL SYMPTOMS. Laboratory Tests 10/31/16 11/01/16 11/01/16 10:55 08:00 08:00 WBC 6.5 D RBC 3.87 L Hgb 12.2 Hct 35.2 L MCV 90.8 MCH 31.5 MCHC 34.7 RDW 13.1 Plt Count 212 MPV 9.1 Sodium Potassium Chloride Carbon Dioxide Anion Gap BUN Creatinine Creat Clearance w eGFR Random Glucose Calcium Total Bilirubin AST ALT Alkaline Phosphatase Total Protein Albumin Urine Color Yellow Urine Appearance Slcloudy Urine pH 5.0 Ur Specific [place] >= 1.030 H Urine Protein Negative Urine Glucose (UA) Negative Urine Ketones Negative Urine Blood Negative Urine Nitrite Negative Urine Bilirubin Negative Urine Urobilinogen Negative Ur Leukocyte Esterase Negative RPR Titer Hepatitis C Antibody <0.1 11/01/16 11/01/16 08:00 08:00 WBC RBC Hgb Hct MCV MCH MCHC RDW Plt Count MPV Sodium 144 Potassium 3.7 Chloride 105 Carbon Dioxide 32 Anion Gap 7 L BUN 18 Creatinine 1.0 Creat Clearance w eGFR > 60 Random Glucose 80 Calcium 8.4 L Total Bilirubin 0.4 AST 9 L ALT 15 D Alkaline Phosphatase 54 D Total Protein 5.6 L Albumin 3.4 Urine Color Urine Appearance Urine pH Ur Specific [place] Urine Protein Urine Glucose (UA) Urine Ketones Urine Blood Urine Nitrite Urine Bilirubin Urine Urobilinogen Ur Leukocyte Esterase RPR Titer Nonreactive Hepatitis C Antibody LABS NOTED. - Treatment Hospital Course: Detoxed Safely - Medication Discharge Medications: Ambulatory Orders NK [No Known Home Medication] 06/18/16 - Diagnosis (1) Nicotine dependence Status: Acute Qualifiers: Nicotine product type: cigarettes Substance use status: in withdrawal Qualified Code(s): F17.213 - Nicotine dependence, cigarettes, with withdrawal (2) Opioid dependence with withdrawal Status: Acute (3) Weight loss Status: Acute (4) Cannabis dependence, uncomplicated Status: Chronic (5) Cocaine dependence, uncomplicated Status: Chronic - AMA Did Patient Leave Against Medical Advice: Yes (PATIENT DID NOT WISH TO STAY TO COMPLETE DETOX REGIMEN.)
[2016-11-04] MEDS ORDERED: METHADONE HCL 10 MG TABLET (FOR DETOX USE ONLY) PO ONE (10:00)
[2016-11-05] MEDS ORDERED: METHADONE HCL 5 MG TABLET (FOR DETOX USE ONLY) PO ONE (06:00)
== END 2016-11-03 09:21 | disposition left against medical advice (07) | DRG 770 ==
LOC: YASAS 17:30 → Y3N 20:44
PROVIDERS: ADMIT Internal Medicine; ATTEND Internal Medicine
PROC: HZ2ZZZZ Detoxification Services for Substance Abuse Treatment (ICD-10-PCS; principal; 2016-10-31)
DX: F11.23 Opioid dependence with withdrawal (principal); F14.20 Cocaine dependence, uncomplicated; F12.20 Cannabis dependence, uncomplicated; F17.210 Nicotine dependence, cigarettes, uncomplicated; Z87.898 Personal history of other specified conditions; Z59.0 Homelessness
CPT/HCPCS: 36415; 80053; 81003; 85027; 86593; 86803; 93005; 93010

== ENCOUNTER 2018-06-14 14:42 | Inpatient (IN) | payer OTHER ==
--- NOTE | 2018-06-14 15:52 | HP ---
COWS - Scale Resting Pulse: 0= [place] 80 or Below Sweatin= Chills/Flushing Restless Observation: 1= Difficult to Sit Still Pupil Size: 1= Pupils >than Normal Bone or Joint Aches: 1= Mild Discomfort Runny Nose/ Eye Tearin= Runny Nose/Eyes GI Upset > 30mins: 2= Nausea/Diarrhea Tremor Observation: 1= Tremor [place], Not Seen Yawning Observation: 1= 1-2x During Session Anxiety or Irritability: 2=Irritable/Anxious Goose Flesh Skin: 0=Smooth Skin COWS Score: 12 CIWA Score Nausea/Vomitin Muscle Tremors: 2 Anxiety: 3 Agitation: 0-Normal Activity Paroxysmal Sweats: 2 Orientation: 0-Oriented Tacttile Disturbances: 1-Very Mild Itch/Numbness Auditory Disturbances: 0-None Visual Disturbances: 0-None Headache: 2-Mild CIWA-Ar Total Score: 12 - Admission Criteria OASAS Guidelines: Admission for Medically Managed Detox: Requires at least one of the followin. CIWA greater than 12 2. Seizures within the past 24 hours 3. Delirium tremens within the past 24 hours 4. Hallucinations within the past 24 hours 5. Acute intervention needed for co occurring medical disorder 6. Acute intervention needed for co occurring psychiatric disorder 7. Severe withdrawal that cannot be handled at a lower level of care (continued vomiting, continued diarrhea, abnormal vital signs) requiring intravenous medication and/or fluids 8. Patient presents the following: CIWA greater than 12, Seizures, delirium tremens or hallucinations in the past 12 hours Admission Criteria Met: Admission criteria met Admission ROS [facility] Chief Complaint: " I want to get better" Allergies/Adverse Reactions: Allergies Allergy/AdvReac Type Severity Reaction Status Date / Time No Known Allergies Allergy Verified 06/14/18 15:20 History of Present Illness: 37 yo male, homeless, with hx of stella, xanax, magda dependence is here seeking detox, reports court mandated d/t seven degree drug charge. Reports hx of grand mal seizure, unable to recall when , reports " many years ago," reports last seizure one week ago, attributes to increase xanax use and refuse medical assistance. Reports hx of depression. Last detox two years ago at [facility]. Exam Limitations: No Limitations - Ebola screening Have you traveled outside of the country in the last 21 days: No Have you had contact with anyone from an Ebola affected area: No - Review of Systems Constitutional: Chills, Loss of Appetite, Weakness, Unintentional Wgt. Loss EENT: reports: Tearing, Nose Congestion Respiratory: reports: No Symptoms reported Cardiac: reports: No Symptoms Reported GI: reports: Nausea, Poor Appetite, Poor Fluid Intake, Abdominal cramping : reports: No Symptoms Reported Musculoskeletal: reports: Back Pain, Joint Pain, Muscle Pain Integumentary: reports: No Symptoms Reported Neuro: reports: See HPI, Headache, Seizure Endocrine: reports: Increased Thirst Hematology: reports: No Symptoms Reported Psychiatric: reports: Orientated x3, Anxious, Depressed Other Systems: Reviewed and Negative Patient History - Patient Medical History Hx Anemia: No Hx Asthma: No Hx Chronic Obstructive Pulmonary Disease (COPD): No Hx Cancer: No Hx Cardiac Disorders: No Hx Congestive Heart Failure: No Hx Hypertension: No Hx Hypercholesterolemia: No Hx Pacemaker: No HX Cerebrovascular Accident: No Hx Seizures: No Hx Dementia: No Hx Diabetes: No Hx Gastrointestinal Disorders: No Hx Liver Disease: No Hx Genitourinary Disorders: No Hx Sexually Transmitted Disorders: No Hx Renal Disease (ESRD): No Hx Thyroid Disease: No Hx Human Immunodeficiency Virus (HIV): No (negative) Hx Hepatitis C: No Hx Depression: No Hx Suicide Attempt: No Hx Bipolar Disorder: No Hx Schizophrenia: No - Patient Surgical History Past Surgical History: No Hx Neurologic Surgery: No Hx Cataract Extraction: No Hx Cardiac Surgery: No Hx Lung Surgery: No Hx Breast Surgery: No Hx Breast Biopsy: No Hx Abdominal Surgery: No Hx Appendectomy: No Hx Cholecystectomy: No Hx Genitourinary Surgery: No Hx Section: No Hx Orthopedic Surgery: No Anesthesia Reaction: No - PPD History Previous Implant?: No Date: 06/20/16 Results: 0 mm PPD to be Administered?: Yes - Smoking Cessation Smoking history: Current every day smoker Have you smoked in the past 12 months: Yes Aproximately how many cigarettes per day: 1 Cigars Per Day: 0 Hx Chewing Tobacco Use: No Initiated information on smoking cessation: Yes 'Breaking Loose' booklet given: 06/14/18 - Substance & Tx. History Hx Alcohol Use: No Hx Substance Use: Yes Substance Use Type: Cocaine, Heroin, Opiates, Tranquilizers Hx Substance Use Treatment: Yes ([facility] detox two years ago ) - Substances abused Heroin Substance route: Inhalation Frequency: Daily Amount used: 5 - 10 bags Age of first use: 32 Date of last use: 06/13/18 Alprazolam (Xanax) Substance route: Oral Frequency: Daily Amount used: 2mg x 2 Age of first use: 32 Date of last use: 06/12/18 Cocaine Substance route: Inhalation Frequency: 3-6 times per week Amount used: 1 gram + Age of first use: 28 Date of last use: 06/12/18 Family Disease History - Family Disease History Family Disease History: Diabetes: Grandparent, Father Admission Physical Exam [facility] - Vital Signs Vital Signs: Vital Signs - 24 hr 06/14/18 15:27 Temperature 98.4 F Pulse Rate 74 Respiratory 18 Rate Blood Pressure 127/76 - Physical General Appearance: Yes: Appropriately Dressed, Anxious HEENTM: Yes: EOMI, Hearing grossly Normal, Normal ENT Inspection, Normocephalic , Normal Voice, FABBY, Pharynx Normal, Tm's normal, Rhinorrhea Respiratory: Yes: Chest Non-Tender, Lungs Clear, Normal Breath Sounds, No Respiratory Distress, No Accessory Muscle Use Neck: Yes: Within Normal Limits Breast: Yes: Breast Exam Deferred Cardiology: Yes: Regular Rhythm, Regular Rate Abdominal: Yes: Normal Bowel Sounds, Non Tender, Flat, Soft Genitourinary: Yes: Within Normal Limits Back: Yes: Normal Inspection Musculoskeletal: Yes: full range of Motion, Gait Steady, Pelvis Stable, Back pain Extremities: Yes: Normal Capillary Refill, Normal Inspection, Normal Range of Motion, Non-Tender Neurological: Yes: 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, Fully Oriented, Alert, Motor Strength 5/5, Depressed Affect Integumentary: Yes: Normal Color, Warm, Diaphoresis Lymphatic: Yes: Within Normal Limits - Diagnostic (1) History of seizure Current Visit: Yes Status: Acute (2) Cocaine dependence Current Visit: Yes Status: Acute Qualifiers: Substance use status: uncomplicated Qualified Code(s): F14.20 - Cocaine dependence, uncomplicated (3) Opioid dependence with withdrawal Current Visit: Yes Status: Acute (4) Sedative, hypnotic or anxiolytic dependence with withdrawal, uncomplicated Current Visit: Yes Status: Acute Cleared for Admission [facility] - Detox or Rehab [facility] Level of Care: Medically Managed Detox Regimen/Protocol: Methadone/Valium Breathalyzer - Breathalyzer Breathalyzer: 0 Urine Drug Screen - Test Device Lot number: [id number] Expiration date: 02/13/20 - Control Is test valid?: Yes - Results Drug screen NEGATIVE: No Urine drug screen results: THC-Marijuana, MAGDA-Cocaine, MOP-Opiates, BUP-Suboxone Inpatient Rehab Admission - Rehab Decision to Admit Inpatient rehab admission?: No
[2018-06-14] MEDS ORDERED: MAGNESIUM HYDROX 2400MG/30ML ORAL SUSPENSION 30 ML CUP PO PRN (16:04)
[2018-06-14] MEDS ORDERED: BISMUTH SUBSALICYLATE 524 MG/30 ML UD PO PRN (16:04)
[2018-06-14] MEDS ORDERED: ACETAMINOPHEN 325 MG TABLET (FP) PO PRN ×2 (16:04)
[2018-06-14] MEDS ORDERED: P-EPHED 60MG/TRIPROLIDI 2.5MG TABLET PO PRN (16:04)
[2018-06-14] MEDS ORDERED: IBUPROFEN 400 MG TABLET (FP) PO PRN (16:04)
[2018-06-14] MEDS ORDERED: MENTHOL/PHENOL 1 EACH UD MM PRN (16:04)
[2018-06-14] MEDS ORDERED: MAG HYDROX/AL HYDROX/SIMETH 30 ML UNIT-DOSE CUP PO PRN (16:04)
[2018-06-14] MEDS ORDERED: cloNIDine HCL 0.1 MG TABLET PO PRN (16:04)
[2018-06-14] MEDS ORDERED: guaiFENesin 200 MG/10 ML 10 ML UNIT-DOSE CUPS PO PRN (16:04)
[2018-06-14] MEDS ORDERED: MAGNESIUM CITRATE 300 ML BOTTLE PO PRN (16:04)
[2018-06-14] MEDS ORDERED: METHADONE HCL 10 MG TABLET (FOR DETOX USE ONLY) PO ONE ×2 (17:00→23:00)
[2018-06-14] MEDS: METHOCARBAMOL 500 MG TABLET PO PRN (17:50)
[2018-06-14] MEDS: diazePAM 5 MG TABLET PO PRN (17:51)
[2018-06-14] MEDS: METHADONE HCL 10 MG TABLET (FOR DETOX USE ONLY) PO ONE (17:51)
[2018-06-14] MEDS: diazePAM 5 MG TABLET PO SCH (22:17)
[2018-06-14] MEDS: MELATONIN 5 MG TABLETS PO PRN (22:18)
[2018-06-14] MEDS: THIAMINE HCL 100 MG TABLET (FP) PO SCH (22:18)
[2018-06-15] MEDS: diazePAM 5 MG TABLET PO PRN ×3 (01:25→20:05)
[2018-06-15] MEDS: diazePAM 5 MG TABLET PO SCH ×3 (05:42→22:16)
[2018-06-15] MEDS: METHOCARBAMOL 500 MG TABLET PO PRN ×2 (05:45→15:05)
[2018-06-15 10:00] LABS: HEMOGLOBIN 13.4 GM/dL (11.7-16.9); MCH 32.2 pg (25.7-33.7); MCHC 34.3 g/dl (32.0-35.9); MEAN CELL VOLUME 93.8 fl (80-96); MEAN PLT VOLUME 8.8 fl (7.5-11.1); PLATELET COUNT 213 K/MM3 (134-434); RBC 4.16 M/mm3 (4.00-5.60); RDW 13.1 % (11.9-15.9); WHITE BLOOD COUNT 7.7 K/mm3 (4.0-10.0)
[2018-06-15] MEDS ORDERED: METHADONE HCL 10 MG TABLET (FOR DETOX USE ONLY) PO ONE (10:00)
[2018-06-15] MEDS: PRENATAL VITAMINS W/ FOLIC ACID TABLET (FP) PO SCH (10:05)
[2018-06-15 10:24] LABS: ALBUMIN 3.8 g/dl (3.4-5.0); ALK PHOS 55 U/L (45-117); ANION GAP 5 MMOL/L (8-16); BILIRUBIN,TOTAL 0.3 mg/dL (0.2-1); BLOOD UREA NITROGEN 20 mg/dL (7-18); CALCIUM 8.6 mg/dL (8.5-10.1); CHLORIDE 104 mmol/L (98-107); CO2 31 mmol/L (21-32); GLUCOSE,RANDOM 79 mg/dL (74-106); POTASSIUM 3.9 mmol/L (3.5-5.1); SGOT/AST 27 U/L (15-37); SGPT/ALT 26 U/L (13-61); SODIUM 140 mmol/L (136-145); TOT PROT 6.4 g/dl (6.4-8.2)
--- NOTE | 2018-06-15 15:01 | PN ---
S CIWA - CIWA Score Nausea/Vomitin-No Nausea/No Vomiting Muscle Tremors: None Anxiety: 4-Mod. Anxious/Guarded Agitation: 1-Slight > Activity Paroxysmal Sweats: 2 Orientation: 0-Oriented Tacttile Disturbances: 2-Mild Itch/Numbness/Burn Auditory Disturbances: 0-None Visual Disturbances: 3-Moderate Sensitivity Headache: 0-None Present CIWA-Ar Total Score: 12 S COWS - Scale Resting Pulse: 0= [place] 80 or Below Sweatin= Chills/Flushing Restless Observation: 0= Sits Still Pupil Size: 0= Normal to Room Light Bone or Joint Aches: 2= Severe Diffuse Aches Runny Nose/ Eye Tearin= Nasal Congestion GI Upset > 30mins: 0= None Tremor Observation of Outstretched Hands: 0= None Yawning Observation: 1= 1-2x During Session Anxiety or Irritability: 2=Irritable/Anxious Goose Flesh Skin: 3=Piloerection COWS Score: 10 S Progress Note (SOAP) Subjective: Sweating, Anxious, Interrupted sleep. Objective: PATIENT A & O X 3, OBSERVED AMBULATING ON UNIT. IN NO ACUTE DISTRESS. 06/15/18 15:00 Vital Signs Temperature 96.7 F L 06/15/18 13:15 Pulse Rate 67 06/15/18 13:15 Respiratory Rate 18 06/15/18 13:15 Blood Pressure 120/74 06/15/18 13:15 O2 Sat by Pulse Oximetry (%) Laboratory Tests 06/15/18 06/15/18 06/15/18 07:00 07:00 07:00 WBC 7.7 RBC 4.16 Hgb 13.4 Hct 39.0 MCV 93.8 MCH 32.2 MCHC 34.3 RDW 13.1 Plt Count 213 MPV 8.8 Sodium 140 Potassium 3.9 Chloride 104 Carbon Dioxide 31 Anion Gap 5 L BUN 20 H Creatinine 1.0 Creat Clearance w eGFR 84.55 Random Glucose 79 Calcium 8.6 Total Bilirubin 0.3 AST 27 ALT 26 Alkaline Phosphatase 55 Total Protein 6.4 Albumin 3.8 HIV 1&2 Antibody Screen Negative HIV P24 Antigen Negative LABS NOTED. RPR RESULT PENDING. 06/15/18 15:00 Assessment: 06/15/18 15:00 WITHDRAWAL SYMPTOMS. Plan: CONTINUE DETOX. INCREASE DAILY PO FLUID INTAKE.
--- NOTE | 2018-06-15 17:41 | CONSULT ---
[facility] Psychiatric Consult - Data Date of interview: 06/15/18 Admission source: [facility] Identifying data: Readmission to [facility] for this 37 y/o male, court -mandated for substance use treatment (heroin, cocaine, xanax, cannabis). Detoxification in progress. Examined at [address] [place] [address]. Patient is single, no children , homeless (lives in his car), unemployed (not able to hold good jobs because of addictions, as per self-report) and deprived of any source of income. Substance Abuse History: Confirmed by the patient in this interview. Details in current [facility] report : Smoking history: Current every day smoker. Have you smoked in the past 12 months: Yes. Aproximately how many cigarettes per day: 1. Cigars Per Day: 0. Hx Chewing Tobacco Use: No. Initiated information on smoking cessation: Yes. 'Breaking Loose' booklet given: 06/14/18. - Substance & Tx. History. Hx Alcohol Use: No. Hx Substance Use: Yes. Substance Use Type : Cocaine, Heroin, Opiates, Tranquilizers. Hx Substance Use Treatment: Yes ( [facility] detox two years ago ). - Substances abused. Heroin. Substance route: Inhalation. Frequency: Daily. Amount used: 5 - 10 bags. Age of first use: 32. Date of last use: 06/13/18. Alprazolam (Xanax). Substance route: Oral. Frequency: Daily. Amount used: 2mg x 2. Age of first use: 32. Date of last use: 06/12/18. Cocaine. Substance route: Inhalation. Frequency: 3-6 times per week. Amount used: 1 gram +. Age of first use: 28. Date of last use : 06/12/18 Medical History: History of withdrawal-related seizures. Psychiatric History: Patient denies history of psychiatric hospitalizations, psychiatric OPD care or suicide attempts. Physical/Sexual Abuse/Trauma History: Patient denies history of abuse. Additional Comment: Urine drug screen results: THC-Marijuana, MAGDA-Cocaine, MOP- Opiates, BUP-Suboxone. Noted. Mental Status Exam - Mental Status Exam Alert and Oriented to: Time, Place, Person Cognitive Function: Good Patient Appearance: Well Groomed Mood: Nervous, Withdrawn, Anxious (dysphoric) Affect: Mood Congruent, Constricted Patient Behavior: Fatigued, Appropriate, Cooperative Speech Pattern: Clear, Appropriate Voice Loudness: Normal Thought Process: Goal Oriented Thought Disorder: Not Present Hallucinations: Denies Suicidal Ideation: Denies Homicidal Ideation: Denies Insight/Judgement: Poor Sleep: Poorly, Difficulty falling asleep Appetite: Good Muscle strength/Tone: Normal Gait/Station: Normal Psychiatric Findings - Problem List ([place] 1, 2,3) (1) Opioid dependence with withdrawal Current Visit: Yes Status: Acute (2) Sedative, hypnotic or anxiolytic dependence with withdrawal, uncomplicated Current Visit: Yes Status: Acute (3) Cocaine dependence Current Visit: Yes Status: Chronic Qualifiers: Substance use status: uncomplicated Qualified Code(s): F14.20 - Cocaine dependence, uncomplicated (4) Cannabis dependence, uncomplicated Current Visit: Yes Status: Chronic (5) Nicotine dependence Current Visit: Yes Status: Chronic Qualifiers: Nicotine product type: cigarettes Substance use status: in withdrawal Qualified Code(s): F17.213 - Nicotine dependence, cigarettes, with withdrawal (6) Insomnia Current Visit: Yes Status: Chronic - Initial Treatment Plan Initial Treatment Plan: Psychoeducation. Support. Motivational rounds. Groups. Sleep hygiene. Detoxification. AA/NA meetings. Relapse prevention (MAT protocols ) : discussed in this session. Rehabilitation strongly recommended to patient. Mr Pizano agrees to enroll in rehabilitative care after completion of this program. Insomnia is addressed with melatonin at bedside (side effects/benefits revisited with patient). Consent (verbal) granted to MD. Watters.
[2018-06-15] MEDS: MELATONIN 5 MG TABLETS PO PRN (22:16)
[2018-06-15] MEDS: THIAMINE HCL 100 MG TABLET (FP) PO SCH (22:16)
[2018-06-16] MEDS: METHOCARBAMOL 500 MG TABLET PO PRN ×2 (05:28→18:53)
[2018-06-16] MEDS: diazePAM 5 MG TABLET PO PRN ×2 (05:28→16:01)
[2018-06-16] MEDS ORDERED: METHADONE HCL 10 MG TABLET (FOR DETOX USE ONLY) PO ONE (10:00)
[2018-06-16] MEDS: diazePAM 5 MG TABLET PO SCH ×2 (10:19→22:29)
[2018-06-16] MEDS: PRENATAL VITAMINS W/ FOLIC ACID TABLET (FP) PO SCH (10:19)
--- NOTE | 2018-06-16 16:35 | PN ---
[facility] CIWA - CIWA Score Nausea/Vomitin-No Nausea/No Vomiting Muscle Tremors: None Anxiety: 3 Agitation: 1-Slight > Activity Paroxysmal Sweats: 3 Orientation: 0-Oriented Tacttile Disturbances: 2-Mild Itch/Numbness/Burn Auditory Disturbances: 0-None Visual Disturbances: 2-Mild Sensitivity Headache: 0-None Present CIWA-Ar Total Score: 11 S COWS - Scale Resting Pulse: 0= [place] 80 or Below Sweatin= Chills/Flushing Restless Observation: 1= Difficult to Sit Still Pupil Size: 0= Normal to Room Light Bone or Joint Aches: 0= None Runny Nose/ Eye Tearin= Nasal Congestion GI Upset > 30mins: 0= None Tremor Observation of Outstretched Hands: 0= None Yawning Observation: 2= >3x During Session Anxiety or Irritability: 2=Irritable/Anxious Goose Flesh Skin: 0=Smooth Skin COWS Score: 7 S Progress Note (SOAP) Subjective: Sweating, Interrupted sleep, Anxious. Patient reports that withdrawal symptoms in general are subsiding in severity. Objective: PATIENT A & O X 3, OBSERVED AMBULATING ON UNIT. IN NO ACUTE DISTRESS. 06/16/18 16:33 Laboratory Tests 06/15/18 06/15/18 06/15/18 07:00 07:00 07:00 WBC 7.7 RBC 4.16 Hgb 13.4 Hct 39.0 MCV 93.8 MCH 32.2 MCHC 34.3 RDW 13.1 Plt Count 213 MPV 8.8 Sodium 140 Potassium 3.9 Chloride 104 Carbon Dioxide 31 Anion Gap 5 L BUN 20 H Creatinine 1.0 Creat Clearance w eGFR 84.55 Random Glucose 79 Calcium 8.6 Total Bilirubin 0.3 AST 27 ALT 26 Alkaline Phosphatase 55 Total Protein 6.4 Albumin 3.8 RPR Titer Nonreactive HIV 1&2 Antibody Screen HIV P24 Antigen 06/15/18 07:00 WBC RBC Hgb Hct MCV MCH MCHC RDW Plt Count MPV Sodium Potassium Chloride Carbon Dioxide Anion Gap BUN Creatinine Creat Clearance w eGFR Random Glucose Calcium Total Bilirubin AST ALT Alkaline Phosphatase Total Protein Albumin RPR Titer HIV 1&2 Antibody Screen Negative HIV P24 Antigen Negative LABS NOTED. Assessment: 06/16/18 16:33 WITHDRAWAL SYMPTOMS. Plan: CONTINUE DETOX. INCREASE DAILY PO FLUID INTAKE.
[2018-06-16] MEDS: THIAMINE HCL 100 MG TABLET (FP) PO SCH (22:28)
[2018-06-16] MEDS: MELATONIN 5 MG TABLETS PO PRN (22:30)
[2018-06-17] MEDS: diazePAM 5 MG TABLET PO PRN ×3 (00:26→15:06)
[2018-06-17] MEDS: METHOCARBAMOL 500 MG TABLET PO PRN ×3 (05:34→22:30)
[2018-06-17] MEDS ORDERED: diazePAM 5 MG TABLET PO SCH (06:00)
[2018-06-17] MEDS: METHADONE HCL 10 MG TABLET (FOR DETOX USE ONLY) PO ONE (09:53)
[2018-06-17] MEDS: PRENATAL VITAMINS W/ FOLIC ACID TABLET (FP) PO SCH (09:53)
--- NOTE | 2018-06-17 15:57 | PN ---
BHS Progress Note (SOAP) Subjective: Interrupted Sleep, Anxious. Patient reports that withdrawal symptoms have subsided considerably in severity since time of admission. Objective: PATIENT A & O X 3, OBSERVED AMBULATING ON UNIT. IN NO ACUTE DISTRESS. 06/17/18 15:57 Vital Signs Temperature 96.4 F L 06/17/18 14:03 Pulse Rate 82 06/17/18 14:03 Respiratory Rate 16 06/17/18 14:03 Blood Pressure 131/68 06/17/18 14:03 O2 Sat by Pulse Oximetry (%) Laboratory Tests 06/15/18 06/15/18 06/15/18 07:00 07:00 07:00 WBC 7.7 RBC 4.16 Hgb 13.4 Hct 39.0 MCV 93.8 MCH 32.2 MCHC 34.3 RDW 13.1 Plt Count 213 MPV 8.8 Sodium 140 Potassium 3.9 Chloride 104 Carbon Dioxide 31 Anion Gap 5 L BUN 20 H Creatinine 1.0 Creat Clearance w eGFR 84.55 Random Glucose 79 Calcium 8.6 Total Bilirubin 0.3 AST 27 ALT 26 Alkaline Phosphatase 55 Total Protein 6.4 Albumin 3.8 RPR Titer Nonreactive HIV 1&2 Antibody Screen HIV P24 Antigen 06/15/18 07:00 WBC RBC Hgb Hct MCV MCH MCHC RDW Plt Count MPV Sodium Potassium Chloride Carbon Dioxide Anion Gap BUN Creatinine Creat Clearance w eGFR Random Glucose Calcium Total Bilirubin AST ALT Alkaline Phosphatase Total Protein Albumin RPR Titer HIV 1&2 Antibody Screen Negative HIV P24 Antigen Negative LABS NOTED. Assessment: 06/17/18 15:57 WITHDRAWAL SYMPTOMS. Plan: CONTINUE DETOX. PATIENT SCHEDULED FOR D/C TOMORROW.
[2018-06-17] MEDS: MELATONIN 5 MG TABLETS PO PRN (22:30)
[2018-06-17] MEDS: THIAMINE HCL 100 MG TABLET (FP) PO SCH (22:30)
[2018-06-18] MEDS: METHOCARBAMOL 500 MG TABLET PO PRN ×2 (05:43→12:14)
[2018-06-18] MEDS ORDERED: METHADONE HCL 5 MG TABLET (FOR DETOX USE ONLY) PO ONE (06:00)
[2018-06-18 06:16] VITALS: PULSE 76
[2018-06-18 10:30] VITALS: BP 102/87; TEMP 97.4
[2018-06-18] MEDS: PRENATAL VITAMINS W/ FOLIC ACID TABLET (FP) PO SCH (10:42)
--- NOTE | 2018-06-18 14:32 | DS ---
[facility] Detox Discharge Summary Admission Date: 06/14/18 Discharge Date: 06/18/18 - History Present History: Cocaine Dependence, Opioid Dependence, Sedative Dependence Additional Comments: PATIENT SCHEDULED FOR DISCHARGE FROM DETOX UNIT TO DAY. PATIENT GOING TO [facility] ([facility]) FOR AFTERCARE. PATIENT WAS DISCHARGED FROM DETOX UNIT TO BE TAKEN OVER TO REHAB UNIT IN STABLE MEDICAL CONDITION. Pertinent Past History: History of Seizure. - Physical Exam Results Vital Signs: Vital Signs Temperature 97.4 F L 06/18/18 10:29 Pulse Rate 76 06/18/18 10:29 Respiratory Rate 20 06/18/18 10:29 Blood Pressure 102/87 06/18/18 10:29 O2 Sat by Pulse Oximetry (%) Pertinent Admission Physical Exam Findings: WITHDRAWAL SYMPTOMS. Laboratory Tests 06/15/18 06/15/18 06/15/18 07:00 07:00 07:00 WBC 7.7 RBC 4.16 Hgb 13.4 Hct 39.0 MCV 93.8 MCH 32.2 MCHC 34.3 RDW 13.1 Plt Count 213 MPV 8.8 Sodium 140 Potassium 3.9 Chloride 104 Carbon Dioxide 31 Anion Gap 5 L BUN 20 H Creatinine 1.0 Creat Clearance w eGFR 84.55 Random Glucose 79 Calcium 8.6 Total Bilirubin 0.3 AST 27 ALT 26 Alkaline Phosphatase 55 Total Protein 6.4 Albumin 3.8 RPR Titer Nonreactive HIV 1&2 Antibody Screen HIV P24 Antigen 06/15/18 07:00 WBC RBC Hgb Hct MCV MCH MCHC RDW Plt Count MPV Sodium Potassium Chloride Carbon Dioxide Anion Gap BUN Creatinine Creat Clearance w eGFR Random Glucose Calcium Total Bilirubin AST ALT Alkaline Phosphatase Total Protein Albumin RPR Titer HIV 1&2 Antibody Screen Negative HIV P24 Antigen Negative LABS NOTED. - Treatment Hospital Course: Detox Protocol Followed, Detoxed Safely, Responded well, Discharged Condition Good, Rehab Referral Accepted Patient has Accepted a Rehab Referral to: [facility] ([place], [place]). - Medication Discharge Medications: Ambulatory Orders NK [No Known Home Medication] 06/18/16 - Diagnosis (1) History of seizure Status: Acute (2) Sedative, hypnotic or anxiolytic dependence with withdrawal, uncomplicated Status: Acute (3) Cocaine dependence, uncomplicated Status: Chronic (4) Opioid dependence with withdrawal Status: Acute - AMA Did Patient Leave Against Medical Advice: No
== END 2018-06-18 12:18 | disposition other institution (70) | DRG 773 ==
LOC: YASAS 14:42 → Y3N 16:44
PROVIDERS: ADMIT Surgery; ATTEND Surgery
PROC: HZ2ZZZZ Detoxification Services for Substance Abuse Treatment (ICD-10-PCS; principal; 2018-06-14)
DX: F11.23 Opioid dependence with withdrawal (principal); F13.230 Sedative, hypnotic or anxiolytic dependence with withdrawal, uncomplicated; F14.20 Cocaine dependence, uncomplicated; F12.20 Cannabis dependence, uncomplicated; F17.210 Nicotine dependence, cigarettes, uncomplicated; R56.9 Unspecified convulsions; G47.00 Insomnia, unspecified; Z59.0 Homelessness
CPT/HCPCS: 36415; 80053; 85027; 86593; 87389

== ENCOUNTER 2018-06-18 12:20 | Inpatient (IN) | payer OTHER ==
[2018-06-18] MEDS ORDERED: MENTHOL/PHENOL 1 EACH UD MM PRN (14:36)
[2018-06-18] MEDS ORDERED: ACETAMINOPHEN 325 MG TABLET (FP) PO PRN (14:36)
[2018-06-18] MEDS ORDERED: P-EPHED 60MG/TRIPROLIDI 2.5MG TABLET PO PRN (14:36)
[2018-06-18] MEDS ORDERED: IBUPROFEN 400 MG TABLET (FP) PO PRN (14:36)
[2018-06-18] MEDS ORDERED: MAGNESIUM HYDROX 2400MG/30ML ORAL SUSPENSION 30 ML CUP PO PRN (14:36)
[2018-06-18] MEDS ORDERED: guaiFENesin 200 MG/10 ML 10 ML UNIT-DOSE CUPS PO PRN (14:36)
[2018-06-18] MEDS ORDERED: MAG HYDROX/AL HYDROX/SIMETH 30 ML UNIT-DOSE CUP PO PRN (14:36)
[2018-06-18] MEDS ORDERED: MAGNESIUM CITRATE 300 ML BOTTLE PO PRN (14:36)
[2018-06-18] MEDS ORDERED: LOPERAMIDE HCL 2 MG CAPSULE PO PRN (14:36)
--- NOTE | 2018-06-18 14:38 | HP ---
[facility] Rehab Assess/Revision - Admission History Admitted to Rehab from: [facility] Date of Admission to Rehab: 06/18/2018 - Vital signs Vital Signs: NOTED; STABLE. - Findings Detox History & Physical reviewed: Yes Concur with findings: Yes Comments/Additional Findings: PATIENT'S MEDICAL / MEDICATION HISTORY REVIEWED PRIOR TO DISCHARGE FROM DETOX UNIT. PATIENT WAS DISCHARGED FROM DETOX UNIT TO BE TAKEN OVER TO REHAB UNIT IN STABLE MEDICAL CONDITION. Inpatient Rehab Admission - Rehab Decision to Admit Inpatient rehab admission?: Yes - Initial Determination Are CD services needed?: Yes Free of communicable disease: Yes Not in need of hospitalization: Yes - Rehab Admission Criteria Previous failed treatment: Yes Poor recovery environment: Yes Comorbidities: No Lacks judgement: Yes Patient is meeting Inpatient Rehab admission criteria:: Yes
[2018-06-18] MEDS: hydrOXYzine PAMOATE 50 MG CAPSULE (FP) PO PRN (16:24)
[2018-06-18] MEDS: THIAMINE HCL 100 MG TABLET (FP) PO SCH (22:38)
[2018-06-19] MEDS: PRENATAL VITAMINS W/ FOLIC ACID TABLET (FP) PO SCH (10:13)
[2018-06-19] MEDS: hydrOXYzine PAMOATE 50 MG CAPSULE (FP) PO PRN (18:54)
[2018-06-19] MEDS: THIAMINE HCL 100 MG TABLET (FP) PO SCH (21:43)
[2018-06-20] MEDS: PRENATAL VITAMINS W/ FOLIC ACID TABLET (FP) PO SCH (09:45)
[2018-06-20] MEDS: hydrOXYzine PAMOATE 50 MG CAPSULE (FP) PO PRN (16:42)
[2018-06-20] MEDS: THIAMINE HCL 100 MG TABLET (FP) PO SCH (21:41)
[2018-06-21] MEDS: PRENATAL VITAMINS W/ FOLIC ACID TABLET (FP) PO SCH (10:23)
[2018-06-21] MEDS: hydrOXYzine PAMOATE 50 MG CAPSULE (FP) PO PRN ×2 (14:04→21:16)
[2018-06-21] MEDS: THIAMINE HCL 100 MG TABLET (FP) PO SCH (21:16)
[2018-06-22] MEDS: PRENATAL VITAMINS W/ FOLIC ACID TABLET (FP) PO SCH (10:19)
[2018-06-22] MEDS: hydrOXYzine PAMOATE 50 MG CAPSULE (FP) PO PRN ×2 (10:19→21:05)
[2018-06-22 19:20] LABS: PH,URINE 6.5 (5.0-8.0); URINE APPEARANCE CLEAR; URINE BILIRUBIN NEGATIVE (NEGATIVE); URINE COLOR YELLOW; URINE GLUCOSE (UA) NEGATIVE (NEGATIVE); URINE KETONE NEGATIVE (NEGATIVE); URINE LEUK ESTERASE NEGATIVE (NEGATIVE); URINE NITRITE NEGATIVE (NEGATIVE); URINE PROTEIN NEGATIVE (NEGATIVE); URINE UROBILINOGEN 0.2 mg/dL (0.2-1.0)
[2018-06-22] MEDS: THIAMINE HCL 100 MG TABLET (FP) PO SCH (21:04)
[2018-06-23] MEDS: PRENATAL VITAMINS W/ FOLIC ACID TABLET (FP) PO SCH (10:34)
[2018-06-23] MEDS: hydrOXYzine PAMOATE 50 MG CAPSULE (FP) PO PRN ×2 (10:35→21:10)
[2018-06-23] MEDS: CYCLOBENZAPRINE HCL 10 MG TABLET (FP) PO SCH ×2 (13:38→21:10)
[2018-06-23] MEDS: THIAMINE HCL 100 MG TABLET (FP) PO SCH (21:10)
[2018-06-23] MEDS: MELATONIN 5 MG TABLETS PO PRN (21:10)
[2018-06-24] MEDS: CYCLOBENZAPRINE HCL 10 MG TABLET (FP) PO SCH ×3 (06:49→21:34)
[2018-06-24] MEDS: PRENATAL VITAMINS W/ FOLIC ACID TABLET (FP) PO SCH (10:30)
[2018-06-24] MEDS: hydrOXYzine PAMOATE 50 MG CAPSULE (FP) PO PRN ×2 (10:31→21:35)
[2018-06-24] MEDS: THIAMINE HCL 100 MG TABLET (FP) PO SCH (21:34)
[2018-06-24] MEDS: MELATONIN 5 MG TABLETS PO PRN (21:35)
[2018-06-25] MEDS: CYCLOBENZAPRINE HCL 10 MG TABLET (FP) PO SCH ×3 (06:39→21:18)
--- NOTE | 2018-06-25 09:10 | CONSULT ---
[facility] Psychiatric Consult - Data Date of interview: 06/25/18 Admission source: [facility] Identifying data: Patient is a 38 year old single male, without children, unemployed (denies receiving receiving [employer] assistance), and is currently homeless. Patient is court mandated to attend detox/rehab. Patient admitted to for opiate dependence. Substance Abuse History: Smoking Cessation. Smoking history: Current every day smoker. Have you smoked in the past 12 months: Yes. Aproximately how many cigarettes per day: 1. Cigars Per Day: 0. Hx Chewing Tobacco Use: No. Initiated information on smoking cessation: Yes. 'Breaking Loose' booklet given : 06/14/18. - Substance & Tx. History. Hx Alcohol Use: No. Hx Substance Use: Yes. Substance Use Type: Cocaine, Heroin, Opiates, Tranquilizers. Hx Substance Use Treatment: Yes ([facility] detox two years ago ). - Substances abused. Heroin. Substance route: Inhalation. Frequency: Daily. Amount used: 5 - 10 bags. Age of first use: 32. Date of last use: 06/13/18. Alprazolam ( Xanax). Substance route: Oral. Frequency: Daily. Amount used: 2mg x 2. Age of first use: 32. Date of last use: 06/12/18. Cocaine. Substance route: Inhalation. Frequency: 3-6 times per week. Amount used: 1 gram +. Age of first use: 28. Date of last use: 06/12/18 Medical History: History of withdrawal-related seizures Psychiatric History: Patient's only psychiatric contact has occured in detox and rehab setting. He denies h/o accepting psychotropic medications. Patient reports feeling sad and hopeless secondary to his drug use, homelessness, and lack of financial stability. Mr. Pizano also reports difficulty sleeping. Patient denies h/o suicide attempt and denies current urges to hurt self or others. Physical/Sexual Abuse/Trauma History: denies. Mental Status Exam - Mental Status Exam Alert and Oriented to: Time, Place, Person Cognitive Function: Good Patient Appearance: Well Groomed Mood: Sad Affect: Mood Congruent Patient Behavior: Appropriate, Cooperative Speech Pattern: Appropriate Voice Loudness: Normal Thought Process: Intact, Goal Oriented Thought Disorder: Not Present Hallucinations: Denies Suicidal Ideation: Denies Homicidal Ideation: Denies Insight/Judgement: Poor Sleep: Poorly Appetite: Fair Muscle strength/Tone: Normal Gait/Station: Normal Psychiatric Findings - Problem List ([place] 1, 2,3) (1) Opioid dependence Current Visit: Yes Status: Acute (2) Substance induced mood disorder Current Visit: Yes Status: Acute (3) Substance-induced sleep disorder Current Visit: Yes Status: Acute (4) Cannabis dependence, uncomplicated Current Visit: Yes Status: Chronic (5) Cocaine dependence Current Visit: Yes Status: Chronic Qualifiers: Substance use status: uncomplicated Qualified Code(s): F14.20 - Cocaine dependence, uncomplicated (6) Nicotine dependence Current Visit: Yes Status: Chronic Qualifiers: Nicotine product type: cigarettes Substance use status: in withdrawal Qualified Code(s): F17.213 - Nicotine dependence, cigarettes, with withdrawal - Initial Treatment Plan Initial Treatment Plan: Psychoeducation provided. Detoxification in progress. Will initiate treatment with Remeron 15mg HS. Benefits and side effects discussed. Verbal consent given.
[2018-06-25] MEDS: PRENATAL VITAMINS W/ FOLIC ACID TABLET (FP) PO SCH (09:54)
[2018-06-25] MEDS: hydrOXYzine PAMOATE 50 MG CAPSULE (FP) PO PRN (09:55)
[2018-06-25] MEDS: MIRTAZAPINE 15 MG TABLET (FP) PO SCH (21:18)
[2018-06-25] MEDS: MELATONIN 5 MG TABLETS PO PRN (21:18)
[2018-06-25] MEDS: THIAMINE HCL 100 MG TABLET (FP) PO SCH (21:18)
[2018-06-26] MEDS: CYCLOBENZAPRINE HCL 10 MG TABLET (FP) PO SCH ×3 (06:21→21:26)
[2018-06-26] MEDS: PRENATAL VITAMINS W/ FOLIC ACID TABLET (FP) PO SCH (10:07)
[2018-06-26] MEDS: hydrOXYzine PAMOATE 50 MG CAPSULE (FP) PO PRN ×2 (12:10→21:26)
[2018-06-26] MEDS: MELATONIN 5 MG TABLETS PO PRN (21:26)
[2018-06-26] MEDS: THIAMINE HCL 100 MG TABLET (FP) PO SCH (21:26)
[2018-06-26] MEDS: MIRTAZAPINE 15 MG TABLET (FP) PO SCH (21:26)
[2018-06-27] MEDS: CYCLOBENZAPRINE HCL 10 MG TABLET (FP) PO SCH ×3 (06:15→21:38)
[2018-06-27] MEDS: hydrOXYzine PAMOATE 50 MG CAPSULE (FP) PO PRN ×2 (09:45→21:38)
[2018-06-27] MEDS: PRENATAL VITAMINS W/ FOLIC ACID TABLET (FP) PO SCH (09:45)
[2018-06-27] MEDS: MELATONIN 5 MG TABLETS PO PRN (21:38)
[2018-06-27] MEDS: THIAMINE HCL 100 MG TABLET (FP) PO SCH (21:38)
[2018-06-27] MEDS: MIRTAZAPINE 15 MG TABLET (FP) PO SCH (21:38)
[2018-06-28] MEDS: CYCLOBENZAPRINE HCL 10 MG TABLET (FP) PO SCH ×3 (06:40→21:41)
[2018-06-28] MEDS: PRENATAL VITAMINS W/ FOLIC ACID TABLET (FP) PO SCH (09:41)
[2018-06-28] MEDS: hydrOXYzine PAMOATE 50 MG CAPSULE (FP) PO PRN (09:41)
[2018-06-28] MEDS: MELATONIN 5 MG TABLETS PO PRN (21:41)
[2018-06-28] MEDS: THIAMINE HCL 100 MG TABLET (FP) PO SCH (21:41)
[2018-06-28] MEDS: MIRTAZAPINE 15 MG TABLET (FP) PO SCH (21:41)
[2018-06-29] MEDS: CYCLOBENZAPRINE HCL 10 MG TABLET (FP) PO SCH ×3 (06:00→21:10)
[2018-06-29] MEDS: PRENATAL VITAMINS W/ FOLIC ACID TABLET (FP) PO SCH (09:39)
[2018-06-29] MEDS: hydrOXYzine PAMOATE 50 MG CAPSULE (FP) PO PRN ×2 (14:15→21:10)
[2018-06-29] MEDS: THIAMINE HCL 100 MG TABLET (FP) PO SCH (21:09)
[2018-06-29] MEDS: MIRTAZAPINE 15 MG TABLET (FP) PO SCH (21:10)
[2018-06-29] MEDS: MELATONIN 5 MG TABLETS PO PRN (21:10)
[2018-06-30] MEDS: CYCLOBENZAPRINE HCL 10 MG TABLET (FP) PO SCH ×3 (06:23→21:09)
[2018-06-30] MEDS: PRENATAL VITAMINS W/ FOLIC ACID TABLET (FP) PO SCH (09:54)
[2018-06-30] MEDS: MIRTAZAPINE 15 MG TABLET (FP) PO SCH (21:09)
[2018-06-30] MEDS: THIAMINE HCL 100 MG TABLET (FP) PO SCH (21:09)
[2018-06-30] MEDS: MELATONIN 5 MG TABLETS PO PRN (21:10)
[2018-06-30] MEDS: hydrOXYzine PAMOATE 50 MG CAPSULE (FP) PO PRN (21:10)
[2018-07-01] MEDS: CYCLOBENZAPRINE HCL 10 MG TABLET (FP) PO SCH ×3 (06:40→21:20)
[2018-07-01] MEDS: PRENATAL VITAMINS W/ FOLIC ACID TABLET (FP) PO SCH (09:51)
[2018-07-01] MEDS: hydrOXYzine PAMOATE 50 MG CAPSULE (FP) PO PRN (21:20)
[2018-07-01] MEDS: THIAMINE HCL 100 MG TABLET (FP) PO SCH (21:20)
[2018-07-01] MEDS: MIRTAZAPINE 15 MG TABLET (FP) PO SCH (21:20)
[2018-07-01] MEDS: MELATONIN 5 MG TABLETS PO PRN (21:20)
[2018-07-02] MEDS: CYCLOBENZAPRINE HCL 10 MG TABLET (FP) PO SCH ×3 (06:13→21:29)
[2018-07-02] MEDS: PRENATAL VITAMINS W/ FOLIC ACID TABLET (FP) PO SCH (09:34)
[2018-07-02] MEDS: THIAMINE HCL 100 MG TABLET (FP) PO SCH (21:28)
[2018-07-02] MEDS: MELATONIN 5 MG TABLETS PO PRN (21:29)
[2018-07-02] MEDS: hydrOXYzine PAMOATE 50 MG CAPSULE (FP) PO PRN (21:29)
[2018-07-02] MEDS: MIRTAZAPINE 15 MG TABLET (FP) PO SCH (21:29)
[2018-07-03] MEDS: CYCLOBENZAPRINE HCL 10 MG TABLET (FP) PO SCH ×3 (06:45→21:14)
[2018-07-03] MEDS: PRENATAL VITAMINS W/ FOLIC ACID TABLET (FP) PO SCH (09:45)
[2018-07-03] MEDS: THIAMINE HCL 100 MG TABLET (FP) PO SCH (21:13)
[2018-07-03] MEDS: MIRTAZAPINE 15 MG TABLET (FP) PO SCH (21:14)
[2018-07-03] MEDS: MELATONIN 5 MG TABLETS PO PRN (21:14)
[2018-07-03] MEDS: hydrOXYzine PAMOATE 50 MG CAPSULE (FP) PO PRN (21:14)
[2018-07-04] MEDS: CYCLOBENZAPRINE HCL 10 MG TABLET (FP) PO SCH ×3 (06:52→21:51)
[2018-07-04] MEDS ORDERED: INSULIN (NOVOLOG) ASPART 100 UNITS/ML 10ML VIAL ONE (06:56)
[2018-07-04] MEDS: PRENATAL VITAMINS W/ FOLIC ACID TABLET (FP) PO SCH (09:42)
[2018-07-04] MEDS: hydrOXYzine PAMOATE 50 MG CAPSULE (FP) PO PRN (14:08)
[2018-07-04] MEDS: MIRTAZAPINE 15 MG TABLET (FP) PO SCH (21:51)
[2018-07-04] MEDS: THIAMINE HCL 100 MG TABLET (FP) PO SCH (21:51)
[2018-07-05] MEDS: CYCLOBENZAPRINE HCL 10 MG TABLET (FP) PO SCH ×3 (06:00→23:33)
[2018-07-05] MEDS: PRENATAL VITAMINS W/ FOLIC ACID TABLET (FP) PO SCH (10:28)
[2018-07-05] MEDS: THIAMINE HCL 100 MG TABLET (FP) PO SCH (23:33)
[2018-07-05] MEDS: MIRTAZAPINE 15 MG TABLET (FP) PO SCH (23:33)
[2018-07-06] MEDS: CYCLOBENZAPRINE HCL 10 MG TABLET (FP) PO SCH (06:01)
[2018-07-06] MEDS: PRENATAL VITAMINS W/ FOLIC ACID TABLET (FP) PO SCH (11:55)
[2018-07-06] MEDS: COLLOIDAL OATMEAL 1 BAR EACH TP PRN (11:56)
[2018-07-06] MEDS: MIRTAZAPINE 15 MG TABLET (FP) PO SCH (22:11)
[2018-07-06] MEDS: THIAMINE HCL 100 MG TABLET (FP) PO SCH (22:12)
[2018-07-07] MEDS: PRENATAL VITAMINS W/ FOLIC ACID TABLET (FP) PO SCH (09:32)
[2018-07-07] MEDS: THIAMINE HCL 100 MG TABLET (FP) PO SCH (21:31)
[2018-07-07] MEDS: MIRTAZAPINE 15 MG TABLET (FP) PO SCH (21:32)
[2018-07-07] MEDS: hydrOXYzine PAMOATE 50 MG CAPSULE (FP) PO PRN (21:32)
[2018-07-07] MEDS: CYCLOBENZAPRINE HCL 10 MG TABLET (FP) PO PRN (21:32)
[2018-07-08] MEDS: PRENATAL VITAMINS W/ FOLIC ACID TABLET (FP) PO SCH (09:43)
[2018-07-08] MEDS: hydrOXYzine PAMOATE 50 MG CAPSULE (FP) PO PRN ×2 (14:33→21:14)
[2018-07-08] MEDS: CYCLOBENZAPRINE HCL 10 MG TABLET (FP) PO PRN ×2 (14:33→21:14)
[2018-07-08] MEDS: MELATONIN 5 MG TABLETS PO PRN (21:14)
[2018-07-08] MEDS: MIRTAZAPINE 15 MG TABLET (FP) PO SCH (21:14)
[2018-07-08] MEDS: THIAMINE HCL 100 MG TABLET (FP) PO SCH (21:14)
[2018-07-09] MEDS: PRENATAL VITAMINS W/ FOLIC ACID TABLET (FP) PO SCH (10:12)
[2018-07-09] MEDS: THIAMINE HCL 100 MG TABLET (FP) PO SCH (21:43)
[2018-07-09] MEDS: MELATONIN 5 MG TABLETS PO PRN (21:43)
[2018-07-09] MEDS: hydrOXYzine PAMOATE 50 MG CAPSULE (FP) PO PRN (21:44)
[2018-07-09] MEDS: CYCLOBENZAPRINE HCL 10 MG TABLET (FP) PO PRN (21:44)
[2018-07-09] MEDS: MIRTAZAPINE 15 MG TABLET (FP) PO SCH (21:53)
[2018-07-10] MEDS: PRENATAL VITAMINS W/ FOLIC ACID TABLET (FP) PO SCH (09:54)
[2018-07-10] MEDS: hydrOXYzine PAMOATE 50 MG CAPSULE (FP) PO PRN ×2 (09:55→21:19)
[2018-07-10] MEDS: CYCLOBENZAPRINE HCL 10 MG TABLET (FP) PO PRN ×2 (09:56→21:20)
[2018-07-10] MEDS: MIRTAZAPINE 15 MG TABLET (FP) PO SCH (21:18)
[2018-07-10] MEDS: THIAMINE HCL 100 MG TABLET (FP) PO SCH (21:19)
[2018-07-10] MEDS: MELATONIN 5 MG TABLETS PO PRN (21:19)
[2018-07-11] MEDS: hydrOXYzine PAMOATE 50 MG CAPSULE (FP) PO PRN ×2 (09:43→21:35)
[2018-07-11] MEDS: PRENATAL VITAMINS W/ FOLIC ACID TABLET (FP) PO SCH (09:43)
[2018-07-11] MEDS: CYCLOBENZAPRINE HCL 10 MG TABLET (FP) PO PRN ×2 (09:43→21:35)
[2018-07-11] MEDS: MIRTAZAPINE 15 MG TABLET (FP) PO SCH (21:35)
[2018-07-11] MEDS: THIAMINE HCL 100 MG TABLET (FP) PO SCH (21:35)
[2018-07-11] MEDS: MELATONIN 5 MG TABLETS PO PRN (21:35)
[2018-07-12] MEDS: COLLOIDAL OATMEAL 1 BAR EACH TP PRN (06:51)
[2018-07-12] MEDS: PRENATAL VITAMINS W/ FOLIC ACID TABLET (FP) PO SCH (09:48)
[2018-07-12] MEDS: MELATONIN 5 MG TABLETS PO PRN (21:25)
[2018-07-12] MEDS: hydrOXYzine PAMOATE 50 MG CAPSULE (FP) PO PRN (21:25)
[2018-07-12] MEDS: CYCLOBENZAPRINE HCL 10 MG TABLET (FP) PO PRN (21:25)
[2018-07-12] MEDS: THIAMINE HCL 100 MG TABLET (FP) PO SCH (21:25)
[2018-07-12] MEDS: MIRTAZAPINE 15 MG TABLET (FP) PO SCH (21:25)
[2018-07-13] MEDS: hydrOXYzine PAMOATE 50 MG CAPSULE (FP) PO PRN ×2 (09:56→21:41)
[2018-07-13] MEDS: PRENATAL VITAMINS W/ FOLIC ACID TABLET (FP) PO SCH (09:56)
[2018-07-13] MEDS: CYCLOBENZAPRINE HCL 10 MG TABLET (FP) PO PRN ×2 (09:56→21:41)
[2018-07-13] MEDS: THIAMINE HCL 100 MG TABLET (FP) PO SCH (21:41)
[2018-07-13] MEDS: MIRTAZAPINE 15 MG TABLET (FP) PO SCH (21:42)
[2018-07-13] MEDS: MELATONIN 5 MG TABLETS PO PRN (21:42)
[2018-07-14] MEDS: PRENATAL VITAMINS W/ FOLIC ACID TABLET (FP) PO SCH (09:29)
[2018-07-14] MEDS: MIRTAZAPINE 15 MG TABLET (FP) PO SCH (21:30)
[2018-07-14] MEDS: THIAMINE HCL 100 MG TABLET (FP) PO SCH (21:30)
[2018-07-14] MEDS: MELATONIN 5 MG TABLETS PO PRN (21:30)
[2018-07-14] MEDS: CYCLOBENZAPRINE HCL 10 MG TABLET (FP) PO PRN (21:31)
[2018-07-14] MEDS: hydrOXYzine PAMOATE 50 MG CAPSULE (FP) PO PRN (21:31)
[2018-07-15] MEDS: PRENATAL VITAMINS W/ FOLIC ACID TABLET (FP) PO SCH (09:53)
--- NOTE | 2018-07-15 11:07 | PN ---
S Progress Note (SOAP) Subjective: Patient to be discharged tomorrow; court mandated. Objective: No neurological deficits, CN 2-12 intact. Heart rate regular, S1S2 audible, Lungs clear, abdomen soft, non-tender, non-distended. Vital Signs (72 hours) 07/13/18 07/13/18 07/13/18 00:30 03:30 06:30 Temperature 97.7 F Pulse Rate 84 Respiratory 18 18 18 Rate Blood Pressure 116/81 07/14/18 07/14/18 07/15/18 03:30 06:54 03:30 Temperature 97.4 F L Pulse Rate 83 Respiratory 18 18 18 Rate Blood Pressure 113/68 07/15/18 06:40 Temperature 97.5 F L Pulse Rate 86 Respiratory 18 Rate Blood Pressure 115/76 07/15/18 11:05 Assessment: Medically stable for discharge. Discharge Dx: Cocaine dependence Cannabis dependence Hx of seizure 07/15/18 11:08 Plan: Patient states that he is court mandated to go to [facility]. Does not have a primary care provider; does not need any prescriptions.
--- NOTE | 2018-07-15 14:56 | PN ---
[facility] Progress Note Note: Patient is scheduled for discharge tomorrow. Script for 30 days of Remeron 15 mg /hs will be electronically transmitted to [facility] at [address] [place], [place] [id number]
[2018-07-15] MEDS: MELATONIN 5 MG TABLETS PO PRN (21:18)
[2018-07-15] MEDS: hydrOXYzine PAMOATE 50 MG CAPSULE (FP) PO PRN (21:18)
[2018-07-15] MEDS: THIAMINE HCL 100 MG TABLET (FP) PO SCH (21:18)
[2018-07-15] MEDS: CYCLOBENZAPRINE HCL 10 MG TABLET (FP) PO PRN (21:18)
[2018-07-15] MEDS: MIRTAZAPINE 15 MG TABLET (FP) PO SCH (21:19)
[2018-07-16 06:40] VITALS: BP 126/76; PULSE 88; TEMP 97.9
== END 2018-07-16 07:30 | disposition home or self-care (01) | DRG 772 ==
LOC: YASAS 12:20 → Y3W 12:21
PROVIDERS: ADMIT Neuromusculoskeletal Medicine & OMM; ATTEND Neuromusculoskeletal Medicine & OMM
PROC: HZ42ZZZ Group Counseling for Substance Abuse Treatment, Cognitive-Behavioral (ICD-10-PCS; principal; 2018-06-18)
DX: F14.20 Cocaine dependence, uncomplicated (principal); F12.20 Cannabis dependence, uncomplicated; F17.210 Nicotine dependence, cigarettes, uncomplicated; F19.282 Other psychoactive substance dependence with psychoactive substance-induced sleep disorder; F19.24 Other psychoactive substance dependence with psychoactive substance-induced mood disorder; Z86.69 Personal history of other diseases of the nervous system and sense organs; Z59.0 Homelessness
CPT/HCPCS: 81003

== ENCOUNTER 2018-12-03 08:48 | Inpatient (IN) | payer OTHER ==
[2018-12-03 09:18] VITALS: BMI 26.6
--- NOTE | 2018-12-03 09:52 | HP ---
COWS - Scale Resting Pulse: 0= [place] 80 or Below Sweatin= Chills/Flushing Restless Observation: 3= Extraneous Movement Pupil Size: 1= Pupils >than Normal Bone or Joint Aches: 1= Mild Discomfort Runny Nose/ Eye Tearin= Runny Nose/Eyes GI Upset > 30mins: 0= None Tremor Observation: 0= None Yawning Observation: 0= None Anxiety or Irritability: 4=Extreme Anxiety Goose Flesh Skin: 0=Smooth Skin COWS Score: 12 CIWA Score - Admission Criteria OASAS Guidelines: Admission for Medically Managed Detox: Requires at least one of the followin. CIWA greater than 12 2. Seizures within the past 24 hours 3. Delirium tremens within the past 24 hours 4. Hallucinations within the past 24 hours 5. Acute intervention needed for co occurring medical disorder 6. Acute intervention needed for co occurring psychiatric disorder 7. Severe withdrawal that cannot be handled at a lower level of care (continued vomiting, continued diarrhea, abnormal vital signs) requiring intravenous medication and/or fluids 8. Admission ROS [facility] - HPI Allergies/Adverse Reactions: Allergies Allergy/AdvReac Type Severity Reaction Status Date / Time No Known Allergies Allergy Verified 12/03/18 09:10 History of Present Illness: 38 y.o. male w/ opioid use , relapsed 2 weeks ago , sober since rehab completion June 2018 , reports current daily use 4-8 bags via inhalation , latest use Thursday evening , current symptoms as above . OD " It's been a while " , reports lives in sober house and he has to remain sober in order to stay . tobacco : 03/19 ppd denies other illicits or ETOH PMHX : denies PSych : denies IS / HI Exam Limitations: Clinical Condition - Ebola screening Have you traveled outside of the country in the last 21 days: No Have you had contact with anyone from an Ebola affected area: No Do you have a fever: No - Review of Systems Constitutional: No Symptoms Reported EENT: reports: No Symptoms Reported Respiratory: reports: No Symptoms reported Cardiac: reports: No Symptoms Reported GI: reports: See HPI : reports: Other (hesitancy) Musculoskeletal: reports: See HPI, Joint Pain (r shoulder - chronic , denies recent injuries) Integumentary: reports: Other (toenail picking when using illicits) Neuro: reports: Headache Endocrine: reports: No Symptoms Reported Psychiatric: reports: Orientated x3, Anxious Patient History - Patient Medical History Hx Anemia: No Hx Asthma: No Hx Chronic Obstructive Pulmonary Disease (COPD): No Hx Cancer: No Hx Cardiac Disorders: No Hx Congestive Heart Failure: No Hx Hypertension: No Hx Hypercholesterolemia: No Hx Pacemaker: No HX Cerebrovascular Accident: No Hx Seizures: Yes (R/T XANAX , LAST episode last 06/07/18) Hx Dementia: No Hx Diabetes: No Hx Gastrointestinal Disorders: No Hx Liver Disease: No Hx Genitourinary Disorders: No Hx Sexually Transmitted Disorders: No Hx Renal Disease (ESRD): No Hx Thyroid Disease: No Hx Human Immunodeficiency Virus (HIV): No (negative) Hx Hepatitis C: No Hx Depression: No Hx Suicide Attempt: No Hx Bipolar Disorder: No Hx Schizophrenia: No - Patient Surgical History Past Surgical History: No Hx Neurologic Surgery: No Hx Cataract Extraction: No Hx Cardiac Surgery: No Hx Lung Surgery: No Hx Breast Surgery: No Hx Breast Biopsy: No Hx Abdominal Surgery: No Hx Appendectomy: No Hx Cholecystectomy: No Hx Genitourinary Surgery: No Hx Section: No Hx Orthopedic Surgery: No Anesthesia Reaction: No - PPD History Date: 06/16/18 Results: 0 MM - Smoking Cessation Smoking history: Current every day smoker Have you smoked in the past 12 months: Yes Aproximately how many cigarettes per day: 1 Cigars Per Day: 0 Hx Chewing Tobacco Use: No Initiated information on smoking cessation: No - Substances abused Heroin Substance route: Inhalation Frequency: Daily Amount used: 5 - 10 bags Age of first use: 34 Date of last use: 12/01/18 Alprazolam (Xanax) Substance route: Oral Frequency: Daily Amount used: 2mg x 2 Age of first use: 32 Date of last use: 06/12/18 Cocaine Substance route: Inhalation Frequency: 3-6 times per week Amount used: 1 gram + Age of first use: 28 Date of last use: 06/12/18 Admission Physical Exam B[facility] - Vital Signs Vital Signs: Vital Signs - 24 hr 12/03/18 09:11 Temperature 98.3 F Pulse Rate 60 Respiratory 16 Rate Blood Pressure 139/100 - Physical General Appearance: Yes: Mild Distress, Anxious HEENTM: Yes: EOMI, Hearing grossly Normal, Normocephalic, Normal Voice Respiratory: Yes: Lungs Clear, Normal Breath Sounds, No Respiratory Distress, No Accessory Muscle Use Neck: Yes: No masses,lesions,Nodules, Trachea in good position Cardiology: Yes: Regular Rhythm, Regular Rate, S1, S2 Abdominal: Yes: Non Tender, Soft Back: Yes: Normal Inspection Musculoskeletal: Yes: Gait Steady Extremities: Yes: Normal Range of Motion, Swelling (left 3rd MC , reports he punched steel object 4 d ago , " I don't feel it , I am using heroin ") Neurological: Yes: Fully Oriented, Alert, Motor Strength 5/5 Integumentary: Yes: Warm - Diagnostic (1) Opioid dependence with withdrawal Current Visit: Yes Status: Acute Breathalyzer - Breathalyzer Breathalyzer: 0 Urine Drug Screen - Test Device Lot number: [id number] Expiration date: 08/13/20 - Control Is test valid?: Yes - Results Drug screen NEGATIVE: No Urine drug screen results: FEN-Fentanyl, MOP-Opiates Inpatient Rehab Admission - Rehab Decision to Admit Inpatient rehab admission?: No
[2018-12-03] MEDS ORDERED: BISMUTH SUBSALICYLATE 524 MG/30 ML UD PO PRN (10:03)
[2018-12-03] MEDS ORDERED: MAGNESIUM HYDROX 2400MG/30ML ORAL SUSPENSION 30 ML CUP PO PRN (10:03)
[2018-12-03] MEDS ORDERED: PROCHLORPERAZINE MALEATE 5 MG TABLET PO PRN (10:03)
[2018-12-03] MEDS ORDERED: MAG HYDROX/AL HYDROX/SIMETH 30 ML UNIT-DOSE CUP PO PRN (10:03)
[2018-12-03] MEDS ORDERED: MAGNESIUM CITRATE 300 ML BOTTLE PO PRN (10:03)
[2018-12-03] MEDS ORDERED: ACETAMINOPHEN 325 MG TABLET (FP) PO PRN (10:03)
[2018-12-03] MEDS ORDERED: MENTHOL/PHENOL 1 EACH UD MM PRN (10:03)
[2018-12-03] MEDS ORDERED: METHADONE HCL 10 MG TABLET (FOR DETOX USE ONLY) PO ONE (10:15)
[2018-12-03] MEDS: hydrOXYzine PAMOATE 25 MG CAPSULE (FP) PO PRN (11:08)
[2018-12-03] MEDS: diazePAM 5 MG TABLET PO PRN ×3 (12:10→23:02)
[2018-12-03] MEDS: ACETAMINOPHEN 325 MG TABLET (FP) PO PRN (16:48)
[2018-12-03] MEDS: NICOTINE POLACRILEX 2 MG GUM BUC PRN ×2 (16:49→19:29)
[2018-12-03] MEDS: IBUPROFEN 400 MG TABLET (FP) PO PRN (18:04)
[2018-12-03] MEDS: cloNIDine HCL 0.1 MG TABLET PO PRN (18:40)
[2018-12-03] MEDS: THIAMINE HCL 100 MG TABLET (FP) PO SCH (23:02)
[2018-12-03] MEDS: MELATONIN 5 MG TABLETS PO PRN (23:02)
[2018-12-04] MEDS ORDERED: METHADONE HCL 5 MG TABLET (FOR DETOX USE ONLY) PO ONE (10:00)
[2018-12-04] MEDS: PRENATAL VITAMINS W/ FOLIC ACID TABLET (FP) PO SCH (10:23)
[2018-12-04] MEDS: diazePAM 5 MG TABLET PO PRN ×4 (10:23→22:50)
[2018-12-04] MEDS: NICOTINE POLACRILEX 2 MG GUM BUC PRN ×2 (10:25→17:23)
[2018-12-04 11:14] LABS: HEMATOCRIT 41.4 % (35.4-49); HEMOGLOBIN 14.4 GM/dL (11.7-16.9); MCH 31.3 pg (25.7-33.7); MCHC 34.8 g/dl (32.0-35.9); MEAN CELL VOLUME 89.8 fl (80-96); MEAN PLT VOLUME 8.8 fl (7.5-11.1); PLATELET COUNT 206 K/MM3 (134-434); RBC 4.61 M/mm3 (4.00-5.60); RDW 13.3 % (11.9-15.9); WHITE BLOOD COUNT 6.2 K/mm3 (4.0-10.0)
--- NOTE | 2018-12-04 11:19 | PN ---
[facility] COWS - Scale Resting Pulse: 0= [place] 80 or Below Sweatin= Beads of Sweat on Face Restless Observation: 1= Difficult to Sit Still Pupil Size: 0= Normal to Room Light Bone or Joint Aches: 1= Mild Discomfort Runny Nose/ Eye Tearin= None GI Upset > 30mins: 0= None Tremor Observation of Outstretched Hands: 2= Slight Tremor Visible Yawning Observation: 1= 1-2x During Session Anxiety or Irritability: 2=Irritable/Anxious Goose Flesh Skin: 0=Smooth Skin COWS Score: 10 BHS Progress Note (SOAP) Subjective: c/o sweats, anxiety, and headache. Objective: 12/04/18 11:19 Vital Signs 12/04/18 12/04/18 12/04/18 03:30 06:00 09:43 Temperature 96.4 F L 100.6 F H Pulse Rate 55 L 70 Respiratory 18 18 17 Rate Blood Pressure 92/48 L 103/55 L Labs pending. Assessment: 12/04/18 11:19 AOX3, in no acute distress. Full ROM, ambulating in the unit. Withdrawal symptoms. Plan: continue detox.
[2018-12-04 11:23] LABS: ALBUMIN 3.6 g/dl (3.4-5.0); BILIRUBIN,TOTAL 0.4 mg/dL (0.2-1); BLOOD UREA NITROGEN 17.4 mg/dL (7-18); CALCIUM 8.9 mg/dL (8.5-10.1); POTASSIUM 4.1 mmol/L (3.5-5.1); TOT PROT 5.8 g/dl (6.4-8.2)
[2018-12-04] MEDS: hydrOXYzine PAMOATE 25 MG CAPSULE (FP) PO PRN ×2 (14:33→22:48)
[2018-12-04] MEDS: ACETAMINOPHEN 325 MG TABLET (FP) PO PRN (14:33)
[2018-12-04] MEDS: cloNIDine HCL 0.1 MG TABLET PO PRN (17:21)
[2018-12-04] MEDS: THIAMINE HCL 100 MG TABLET (FP) PO SCH (22:48)
[2018-12-04] MEDS: MELATONIN 5 MG TABLETS PO PRN (22:51)
[2018-12-05] MEDS: PRENATAL VITAMINS W/ FOLIC ACID TABLET (FP) PO SCH (09:36)
[2018-12-05] MEDS: NICOTINE POLACRILEX 2 MG GUM BUC PRN ×5 (09:36→22:25)
[2018-12-05] MEDS: diazePAM 5 MG TABLET PO PRN ×4 (09:39→22:20)
[2018-12-05] MEDS ORDERED: METHADONE HCL 10 MG TABLET (FOR DETOX USE ONLY) PO ONE (10:00)
[2018-12-05] MEDS: ACETAMINOPHEN 325 MG TABLET (FP) PO PRN (10:30)
[2018-12-05] MEDS ORDERED: METHADONE HCL 5 MG TABLET (FOR DETOX USE ONLY) PO ONE (11:39)
[2018-12-05] MEDS: IBUPROFEN 400 MG TABLET (FP) PO PRN ×2 (13:42→22:22)
--- NOTE | 2018-12-05 16:30 | PN ---
[facility] COWS - Scale Resting Pulse: 0= [place] 80 or Below Sweatin= Chills/Flushing Restless Observation: 3= Extraneous Movement Pupil Size: 0= Normal to Room Light Bone or Joint Aches: 2= Severe Diffuse Aches Runny Nose/ Eye Tearin= Runny Nose/Eyes GI Upset > 30mins: 2= Nausea/Diarrhea Tremor Observation of Outstretched Hands: 2= Slight Tremor Visible Yawning Observation: 0= None Anxiety or Irritability: 2=Irritable/Anxious Goose Flesh Skin: 0=Smooth Skin COWS Score: 14 BHS Progress Note (SOAP) Subjective: Lots of anxiety, patient stated he uses 8 bags of heroin daily and he's feeling lots of withdrawal symptoms because he received 20mg of methadone upon admission and his detox protocol not helping him. Patient requesting to have his methadone increased so he can feel better. Objective: 12/05/18 16:29 Last Vital Signs Temp Pulse Resp BP Pulse Ox 97.3 F L 71 18 130/68 12/05/18 13:55 12/05/18 13:55 12/05/18 13:55 12/05/18 13:55 Laboratory Tests 12/04/18 12/04/18 12/04/18 08:00 08:00 08:00 WBC 6.2 RBC 4.61 Hgb 14.4 Hct 41.4 MCV 89.8 MCH 31.3 MCHC 34.8 RDW 13.3 Plt Count 206 MPV 8.8 Sodium 141 Potassium 4.1 Chloride 106 Carbon Dioxide 31 Anion Gap 4 L BUN 17.4 Creatinine 1.0 Est GFR (CKD-EPI)AfAm 110.94 Est GFR (CKD-EPI)NonAf 95.72 Random Glucose 79 Calcium 8.9 Total Bilirubin 0.4 AST 12 L ALT 18 Alkaline Phosphatase 51 Total Protein 5.8 L Albumin 3.6 RPR Titer Nonreactive Labs reviewed Assessment: 12/05/18 16:30 Withdrawal sxs Plan: Continue detox Encouraged PO water intake Methadone dose adjusted, patient received regular scheduled 10mg dose this morning plus extra 5mg of methadone Scheduled for 10mg methadone tomorrow then 5mg on Thursday Encouraged to continue prn medications Encouraged inpatient drug rehab post detox
[2018-12-05] MEDS: hydrOXYzine PAMOATE 25 MG CAPSULE (FP) PO PRN ×2 (17:40→22:41)
[2018-12-05] MEDS: METHOCARBAMOL 500 MG TABLET PO PRN (20:08)
[2018-12-05] MEDS: THIAMINE HCL 100 MG TABLET (FP) PO SCH (22:20)
[2018-12-05] MEDS: MELATONIN 5 MG TABLETS PO PRN (22:23)
[2018-12-06] MEDS: hydrOXYzine PAMOATE 25 MG CAPSULE (FP) PO PRN ×3 (05:45→17:51)
[2018-12-06] MEDS: diazePAM 5 MG TABLET PO PRN ×5 (05:45→23:28)
[2018-12-06] MEDS ORDERED: METHADONE HCL 5 MG TABLET (FOR DETOX USE ONLY) PO ONE (06:00)
[2018-12-06] MEDS: NICOTINE POLACRILEX 2 MG GUM BUC PRN ×7 (08:04→23:30)
[2018-12-06] MEDS ORDERED: METHADONE HCL 10 MG TABLET (FOR DETOX USE ONLY) PO ONE (10:00)
[2018-12-06] MEDS: PRENATAL VITAMINS W/ FOLIC ACID TABLET (FP) PO SCH (10:48)
[2018-12-06] MEDS: IBUPROFEN 400 MG TABLET (FP) PO PRN ×2 (11:50→19:28)
[2018-12-06] MEDS: METHOCARBAMOL 500 MG TABLET PO PRN (13:45)
[2018-12-06] MEDS: ACETAMINOPHEN 325 MG TABLET (FP) PO PRN ×2 (15:19→23:30)
[2018-12-06] MEDS: THIAMINE HCL 100 MG TABLET (FP) PO SCH (21:45)
[2018-12-07] MEDS: hydrOXYzine PAMOATE 25 MG CAPSULE (FP) PO PRN (01:00)
[2018-12-07] MEDS: MELATONIN 5 MG TABLETS PO PRN (02:31)
[2018-12-07] MEDS: METHOCARBAMOL 500 MG TABLET PO PRN (02:31)
[2018-12-07] MEDS: NICOTINE POLACRILEX 2 MG GUM BUC PRN ×2 (02:32→08:46)
[2018-12-07] MEDS: diazePAM 5 MG TABLET PO PRN ×2 (05:40→09:44)
[2018-12-07] MEDS ORDERED: METHADONE HCL 5 MG TABLET (FOR DETOX USE ONLY) PO ONE (06:00)
[2018-12-07 09:09] VITALS: BP 152/68; PULSE 83; TEMP 97.7
--- NOTE | 2018-12-07 09:13 | DS ---
[facility] Detox Discharge Summary Admission Date: 12/03/18 Discharge Date: 12/07/18 - History Present History: Cannabis Dependence, Cocaine Dependence, Opioid Dependence, Sedative Dependence - Physical Exam Results Vital Signs: Vital Signs Temperature 97.7 F 12/07/18 09:08 Pulse Rate 83 12/07/18 09:08 Respiratory Rate 18 12/07/18 09:08 Blood Pressure 152/68 12/07/18 09:08 O2 Sat by Pulse Oximetry (%) Pertinent Admission Physical Exam Findings: pt arrived in withdrawals Laboratory Tests 12/04/18 12/04/18 12/04/18 08:00 08:00 08:00 WBC 6.2 RBC 4.61 Hgb 14.4 Hct 41.4 MCV 89.8 MCH 31.3 MCHC 34.8 RDW 13.3 Plt Count 206 MPV 8.8 Sodium 141 Potassium 4.1 Chloride 106 Carbon Dioxide 31 Anion Gap 4 L BUN 17.4 Creatinine 1.0 Est GFR (CKD-EPI)AfAm 110.94 Est GFR (CKD-EPI)NonAf 95.72 Random Glucose 79 Calcium 8.9 Total Bilirubin 0.4 AST 12 L ALT 18 Alkaline Phosphatase 51 Total Protein 5.8 L Albumin 3.6 RPR Titer Nonreactive today pt is aaox3 ambulating no acute distress no s/s of withdrawals - Treatment Hospital Course: Detox Protocol Followed, Detoxed Safely, Responded well, Discharged Condition Good, Rehab Referral Accepted Patient has Accepted a Rehab Referral to: [facility] - Medication Discharge Medications: Ambulatory Orders NK [No Known Home Medication] 12/03/18 - Diagnosis (1) Opioid dependence with withdrawal Current Visit: Yes Status: Chronic (2) History of seizure Current Visit: No Status: Suspected (3) Opioid dependence Current Visit: Yes Status: Chronic Qualifiers: Substance use status: uncomplicated Qualified Code(s): F11.20 - Opioid dependence, uncomplicated (4) Sedative, hypnotic or anxiolytic dependence with withdrawal, uncomplicated Current Visit: Yes Status: Acute (5) Substance induced mood disorder Current Visit: No Status: Acute (6) Substance-induced sleep disorder Current Visit: No Status: Acute (7) Cannabis dependence, uncomplicated Current Visit: Yes Status: Chronic (8) Cocaine dependence Current Visit: Yes Status: Chronic Qualifiers: Substance use status: uncomplicated Qualified Code(s): F14.20 - Cocaine dependence, uncomplicated (9) Nicotine dependence Current Visit: Yes Status: Chronic Qualifiers: Nicotine product type: cigarettes Substance use status: uncomplicated Qualified Code(s): F17.210 - Nicotine dependence, cigarettes, uncomplicated - AMA Did Patient Leave Against Medical Advice: No
[2018-12-07] MEDS: PRENATAL VITAMINS W/ FOLIC ACID TABLET (FP) PO SCH (09:44)
== END 2018-12-07 10:18 | disposition home or self-care (01) | DRG 773 ==
LOC: YASAS 08:48 → Y6N 10:07
PROVIDERS: ADMIT Surgery; ATTEND Surgery
PROC: HZ2ZZZZ Detoxification Services for Substance Abuse Treatment (ICD-10-PCS; principal; 2018-12-03)
DX: F11.23 Opioid dependence with withdrawal (principal); F13.230 Sedative, hypnotic or anxiolytic dependence with withdrawal, uncomplicated; F14.20 Cocaine dependence, uncomplicated; F12.20 Cannabis dependence, uncomplicated; F17.210 Nicotine dependence, cigarettes, uncomplicated; F19.24 Other psychoactive substance dependence with psychoactive substance-induced mood disorder; F19.282 Other psychoactive substance dependence with psychoactive substance-induced sleep disorder; Z86.69 Personal history of other diseases of the nervous system and sense organs
CPT/HCPCS: 36415; 73130-TC-LT-FY; 80053; 85027; 86593; J0735

== ENCOUNTER 2019-05-25 10:56 | Inpatient (IN) | payer OTHER ==
--- NOTE | 2019-05-25 12:13 | BHS.RME ---
Substance Use & Tx History - Substance Use History Opiates (Heroin) Substance amount: 20 bags Frequency of use: Daily Substance route: Inhalation (ex: sniffing or snorting) Date of Last Use: 05/24/19 Cannabis Substance amount: 10$ Frequency of use: Daily Substance route: Smoking Date of Last Use: 05/24/19 - Last Treatment Date of last treatment: [facility] 12/03/2018 to 12/07/2018 Where was last treatment: Detox Physical/Psych/Mental Status - Behavior General Behavior: Increased activity (restlessness, agitation) Eye Contact: Normal - Cooperativeness Cooperativeness: Cooperative - Thinking Thought Processes: Logical Thought content: Future oriented - Physical Health Problems Is patient presently having any pain?: No Does patient presently have any injuries (include location): No Does patient currently have a fever: No COWS - Scale Resting Pulse: 0= [place] 80 or Below Sweatin= Chills/Flushing Restless Observation: 1= Difficult to Sit Still Pupil Size: 1= Pupils >than Normal Bone or Joint Aches: 2= Severe Diffuse Aches Runny Nose/ Eye Tearin= Runny Nose/Eyes GI Upset > 30mins: 3= Vomiting/Diarrhea Tremor Observation: 2= Slight Tremor Visible Yawning Observation: 1= 1-2x During Session Anxiety or Irritability: 2=Irritable/Anxious Goose Flesh Skin: 0=Smooth Skin COWS Score: 15
[2019-05-25 12:59] VITALS: BMI 25.4
--- NOTE | 2019-05-25 13:28 | HP ---
<Sotero Quintero - Last Filed: 05/25/19 13:42> COWS - Scale Resting Pulse: 0= [place] 80 or Below Sweatin= Chills/Flushing Restless Observation: 1= Difficult to Sit Still Pupil Size: 1= Pupils >than Normal Bone or Joint Aches: 2= Severe Diffuse Aches Runny Nose/ Eye Tearin= Runny Nose/Eyes GI Upset > 30mins: 3= Vomiting/Diarrhea Tremor Observation: 2= Slight Tremor Visible Yawning Observation: 1= 1-2x During Session Anxiety or Irritability: 2=Irritable/Anxious Goose Flesh Skin: 0=Smooth Skin COWS Score: 15 CIWA Score - Admission Criteria OASAS Guidelines: Admission for Medically Managed Detox: Requires at least one of the followin. CIWA greater than 12 2. Seizures within the past 24 hours 3. Delirium tremens within the past 24 hours 4. Hallucinations within the past 24 hours 5. Acute intervention needed for co occurring medical disorder 6. Acute intervention needed for co occurring psychiatric disorder 7. Severe withdrawal that cannot be handled at a lower level of care (continued vomiting, continued diarrhea, abnormal vital signs) requiring intravenous medication and/or fluids 8. Admitting History and Physical - Admission Chief Complaint: 38 y/o M, presents for heroin detox. "I am here because i cant get clean on my own, its difficult, I have tried. I am way over my head with my addiction." History of Present Illness: 38 y/o M, presents for heroin detox. "I am here because i cant get clean on my own, its difficult, I have tried. I am way over my head with my addiction." Last heroin detox in November 2018 here at [facility]. He was living in a half way house and they made him go last time for detox. Relapsed in 04/2019. Inhalation use. 15-20 bags a day. First time at 35 yo, last time use was 6 am yesterday. Heroin purchased from streets. PMH: depression, FHx: none PSH: Right 5th digit fracture, s/p repair. Allx: none Social: Lives in a fci, first time there. Single. He works as a stylist. Substance: Heroin use BZD use when mixed with heroin THC use Tobacco- 5 cigs/day Legal: none - Smoking History Smoking history: Current every day smoker Have you smoked in the past 12 months: Yes Aproximately how many cigarettes per day: 5 - Alcohol/Substance Use Hx Alcohol Use: No Admission ROS S - HPI Allergies/Adverse Reactions: Allergies Allergy/AdvReac Type Severity Reaction Status Date / Time No Known Allergies Allergy Verified 05/25/19 12:33 Exam Limitations: No Limitations - Ebola screening Have you traveled outside of the country in the last 21 days: No Have you been sick,other than usual withdrawal symptoms: No Do you have a fever: No - Review of Systems Constitutional: Chills, Night Sweats, Unintentional Wgt. Loss EENT: denies: Blurred Vision, Tinnitus, Difficulty Swallowing Respiratory: denies: Cough, Shortness of Breath, Wheezing Cardiac: denies: Chest Pain, Lightheadedness GI: reports: Nausea, Abdominal cramping. denies: Blood Streaked Bowels, Diarrhea, Vomiting : denies: Dysuria, Hematuria Musculoskeletal: denies: Back Pain Neuro: reports: Headache. denies: Numbness, Tingling, Dizziness Endocrine: reports: Excessive Sweating, Unexplained Weight Loss Psychiatric: reports: Anxious, Depressed Patient History - Patient Medical History Hx Anemia: No Hx Asthma: No Hx Chronic Obstructive Pulmonary Disease (COPD): No Hx Cancer: No Hx Cardiac Disorders: No Hx Congestive Heart Failure: No Hx Hypertension: No Hx Hypercholesterolemia: No Hx Pacemaker: No HX Cerebrovascular Accident: No Hx Seizures: No Hx Dementia: No Hx Diabetes: No Hx Gastrointestinal Disorders: No Hx Liver Disease: No Hx Genitourinary Disorders: No Hx Sexually Transmitted Disorders: No Hx Renal Disease (ESRD): No Hx Thyroid Disease: No Hx Human Immunodeficiency Virus (HIV): No (negative) Hx Hepatitis C: No Hx Depression: No Hx Suicide Attempt: No Hx Bipolar Disorder: No Hx Schizophrenia: No - Patient Surgical History Past Surgical History: No Hx Neurologic Surgery: No Hx Cataract Extraction: No Hx Cardiac Surgery: No Hx Lung Surgery: No Hx Breast Surgery: No Hx Breast Biopsy: No Hx Abdominal Surgery: No Hx Appendectomy: No Hx Cholecystectomy: No Hx Genitourinary Surgery: No Hx Section: No Hx Orthopedic Surgery: No Anesthesia Reaction: No - PPD History Previous Implant?: No Date: 06/16/18 Results: 0 MM PPD to be Administered?: Yes - Reproductive History Patient : No - Smoking Cessation Smoking history: Current every day smoker Have you smoked in the past 12 months: Yes Aproximately how many cigarettes per day: 5 Cigars Per Day: 0 Hx Chewing Tobacco Use: No Initiated information on smoking cessation: Yes 'Breaking Loose' booklet given: 05/25/19 - Substance & Tx. History Hx Alcohol Use: Yes Hx Substance Use: Yes Substance Use Type: Heroin Hx Substance Use Treatment: Yes - Substances abused Heroin Substance route: Inhalation Frequency: Daily Amount used: 2 bundles Age of first use: 35 Date of last use: 05/24/19 Marijuana/Hashish Substance route: Smoking Frequency: 1-2 times per week Amount used: 1 blunt Age of first use: 17 Date of last use: 05/24/19 Admission Physical Exam [facility] - Vital Signs Vital Signs: Vital Signs - 24 hr 05/25/19 12:18 Temperature 97.5 F L Pulse Rate 59 L Respiratory 18 Rate Blood Pressure 123/72 - Physical General Appearance: Yes: Thin, Irritable, Anxious HEENTM: Yes: EOMI, FABBY, Pharynx Normal. No: Tonsilar Exudate Respiratory: Yes: Within Normal Limits, Chest Non-Tender, Lungs Clear, Normal Breath Sounds. No: Crackles, Wheezing Neck: Yes: Within Normal Limits Cardiology: Yes: Within Normal Limits, Regular Rhythm, Regular Rate, S1, S2. No: Murmur, Gallop/S3 Abdominal: Yes: Within Normal Limits, Increased Bowel Sounds. No: Guarding, Rebound, Tenderness Extremities: Yes: Within Normal Limits. No: Coldness, Swelling Neurological: Yes: Within Normal Limits, Fully Oriented, Alert Integumentary: Yes: Within Normal Limits, Dry, Warm. No: Normal Color, Rash - Diagnostic (1) Marijuana use Current Visit: No Status: Chronic (2) Nicotine dependence Current Visit: Yes Status: Chronic Qualifiers: Nicotine product type: cigarettes Substance use status: uncomplicated Qualified Code(s): F17.210 - Nicotine dependence, cigarettes, uncomplicated (3) Opioid dependence with withdrawal Current Visit: Yes Status: Acute Cleared for Admission [facility] - Detox or Rehab [facility] Level of Care: Medically Managed Detox Regimen/Protocol: Methadone Breathalyzer - Breathalyzer Breathalyzer: 0 Urine Drug Screen - Test Device Lot number: [id number] Expiration date: 05/24/20 - Control Is test valid?: Yes - Results Drug screen NEGATIVE: No Urine drug screen results: THC-Marijuana, MOP-Opiates Inpatient Rehab Admission - Rehab Decision to Admit Inpatient rehab admission?: No <Cornelia Vasquez - Last Filed: 05/25/19 14:28> CIWA Score - Admission Criteria OASAS Guidelines: Admission for Medically Managed Detox: Requires at least one of the followin. CIWA greater than 12 2. Seizures within the past 24 hours 3. Delirium tremens within the past 24 hours 4. Hallucinations within the past 24 hours 5. Acute intervention needed for co occurring medical disorder 6. Acute intervention needed for co occurring psychiatric disorder 7. Severe withdrawal that cannot be handled at a lower level of care (continued vomiting, continued diarrhea, abnormal vital signs) requiring intravenous medication and/or fluids 8. Admission Physical Exam [facility] - Vital Signs Vital Signs: Vital Signs - 24 hr 05/25/19 12:18 Temperature 97.5 F L Pulse Rate 59 L Respiratory 18 Rate Blood Pressure 123/72 Inpatient Rehab Admission - Rehab Decision to Admit Inpatient rehab admission?: No
[2019-05-25] MEDS ORDERED: ACETAMINOPHEN 325 MG TABLET (FP) PO PRN (13:36)
[2019-05-25] MEDS ORDERED: MAGNESIUM CITRATE 300 ML BOTTLE PO PRN (13:36)
[2019-05-25] MEDS ORDERED: MENTHOL/PHENOL 1 EACH UD MM PRN (13:36)
[2019-05-25] MEDS ORDERED: MAG HYDROX/AL HYDROX/SIMETH 30 ML UNIT-DOSE CUP PO PRN (13:36)
[2019-05-25] MEDS ORDERED: MAGNESIUM HYDROX 2400MG/30ML ORAL SUSPENSION 30 ML CUP PO PRN (13:36)
[2019-05-25] MEDS ORDERED: BISMUTH SUBSALICYLATE 262 MG/15 ML BTL PO PRN (13:36)
[2019-05-25] MEDS ORDERED: ONDANSETRON *ODT* 4 MG TABLET SL ONE (14:13)
[2019-05-25] MEDS ORDERED: METHADONE HCL 10 MG TABLET (FOR DETOX USE ONLY) PO ONE (14:15)
--- NOTE | 2019-05-25 14:23 | PN ---
Teaching Attending Note Name of Resident: Sotero Quintero ATTENDING PHYSICIAN STATEMENT I saw and evaluated the patient. I reviewed the resident's note and discussed the case with the resident. I agree with the resident's findings and plan as documented. SUBJECTIVE:this 38 years old male with heroin,marijuana dependence OBJECTIVE:withdrawal signs and symptom ASSESSMENT AND PLAN:patient need inpatient detox methadone regimen.medically managed detox
[2019-05-25] MEDS: GABAPENTIN 300 MG CAPSULE PO SCH ×2 (15:23→21:58)
[2019-05-25] MEDS: NICOTINE 7 MG/24 HOURS TOPICAL PATCH TD SCH (15:23)
[2019-05-25] MEDS: PRENATAL VITAMINS W/ FOLIC ACID TABLET (FP) PO SCH (15:24)
[2019-05-25] MEDS: diazePAM 5 MG TABLET PO PRN ×2 (15:27→19:49)
[2019-05-25] MEDS: hydrOXYzine PAMOATE 25 MG CAPSULE (FP) PO SCH ×3 (15:27→21:59)
[2019-05-25] MEDS: NICOTINE POLACRILEX 2 MG GUM BUC PRN ×3 (15:32→22:46)
[2019-05-25 16:42] LABS: HEMATOCRIT 41.2 % (35.4-49); MCH 30.7 pg (25.7-33.7); MCHC 33.9 g/dl (32.0-35.9); MEAN CELL VOLUME 90.6 fl (80-96); MEAN PLT VOLUME 9.2 fl (7.5-11.1); PLATELET COUNT 250 K/MM3 (134-434); RBC 4.55 M/mm3 (4.00-5.60); RDW 13.6 % (11.9-15.9)
[2019-05-25 16:51] LABS: ALBUMIN 4.1 g/dl (3.4-5.0); BILIRUBIN,TOTAL 0.3 mg/dL (0.2-1); BLOOD UREA NITROGEN 18.1 mg/dL (7-18); CALCIUM 9.1 mg/dL (8.5-10.1); CREATININE 0.9 mg/dL (0.55-1.3); TOT PROT 6.9 g/dl (6.4-8.2)
[2019-05-25] MEDS: METHOCARBAMOL 500 MG TABLET PO PRN (19:50)
[2019-05-25] MEDS: cloNIDine HCL 0.1 MG TABLET PO PRN (19:50)
[2019-05-25] MEDS: THIAMINE HCL 100 MG TABLET (FP) PO SCH (22:00)
[2019-05-25] MEDS: MELATONIN 5 MG TABLETS PO SCH (22:01)
[2019-05-26] MEDS: hydrOXYzine PAMOATE 25 MG CAPSULE (FP) PO SCH ×5 (05:36→22:28)
[2019-05-26] MEDS: diazePAM 5 MG TABLET PO PRN ×5 (05:36→22:28)
[2019-05-26] MEDS: GABAPENTIN 300 MG CAPSULE PO SCH ×3 (05:36→22:28)
[2019-05-26] MEDS: METHOCARBAMOL 500 MG TABLET PO PRN ×2 (05:38→17:20)
[2019-05-26] MEDS ORDERED: METHADONE HCL 5 MG TABLET (FOR DETOX USE ONLY) ONE (09:15)
[2019-05-26] MEDS ORDERED: METHADONE HCL 10 MG TABLET (FOR DETOX USE ONLY) ONE (09:15)
[2019-05-26] MEDS ORDERED: METHADONE (DETOX) 20 MG, METHADONE (DETOX) 5 MG PO ONE (10:00)
[2019-05-26] MEDS: PRENATAL VITAMINS W/ FOLIC ACID TABLET (FP) PO SCH (10:24)
[2019-05-26] MEDS: NICOTINE 7 MG/24 HOURS TOPICAL PATCH TD SCH (10:24)
[2019-05-26] MEDS: NICOTINE POLACRILEX 2 MG GUM BUC PRN ×5 (10:26→22:30)
--- NOTE | 2019-05-26 10:30 | EKG ---
Test Reason : Blood Pressure : / mmHG Vent. Rate : 052 BPM Atrial Rate : 052 BPM P-R Int : 182 ms QRS Dur : 088 ms QT Int : 400 ms P-R-T Axes : 044 054 042 degrees QTc Int : [address] ELEVATION, CONSIDER EARLY REPOLARIZATION BORDERLINE ECG WHEN COMPARED WITH ECG OF 13-JAN-2017 17:02, NO SIGNIFICANT CHANGE WAS FOUND Confirmed by MARIANELA BANEGAS MD ([id number]) on 05/26/2019 10:30:18 AM Referred By: Confirmed By:MARIANELA BANEGAS MD
--- NOTE | 2019-05-26 11:34 | CONSULT ---
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 This is one of multiple admissions for patient. Patient admitted to for opiate dependence. Substance Abuse History: Smoking Cessation. Smoking history: Current every day smoker. Have you smoked in the past 12 months: Yes. Aproximately how many cigarettes per day: 5. Cigars Per Day: 0. Hx Chewing Tobacco Use: No. Initiated information on smoking cessation: Yes. 'Breaking Loose' booklet given: 05/25/19. - Substance & Tx. History. Hx Alcohol Use: Yes. Hx Substance Use: Yes. Substance Use Type: Heroin. Hx Substance Use Treatment: Yes. - Substances abused. Heroin. Substance route: Inhalation. Frequency: Daily. Amount used: 2 bundles. Age of first use: 35. Date of last use: 05/24/19. Marijuana/Hashish. Substance route: Smoking. Frequency: 1-2 times per week. Amount used: 1 blunt. Age of first use: 17. Date of last use: 05/24/19 Medical History: Right 5th digit fracture, s/p repair Psychiatric History: Patient denies history of psychiatric hospitalization, and suicide attempt. Mr. Pizano reports receiving psychiatric treatment when admitted to detox/rehab facilites or in outpatient rehab programs. Patient recently received psychiatric treatment while at [facility] in November 2018 and was prescribed Prozac 60mg daily. Diagnosis of MDD. Patient has been off medications for several months and is not currently seeing an outpatient provider. At present patient reports feeling sad, hopeless, and worthless. He reports a distant relationship with his family which has effected his mood. Patient denies thoughts or urges to hurt self or others, is requesting to restart prozac, and is motivated to discontinue his opiate use. Physical/Sexual Abuse/Trauma History: denies. Mental Status Exam - Mental Status Exam Alert and Oriented to: Time, Place, Person Cognitive Function: Good Patient Appearance: Well Groomed Mood: Sad Affect: Mood Congruent Patient Behavior: Appropriate, Cooperative Speech Pattern: Appropriate Voice Loudness: Normal Thought Process: Goal Oriented Thought Disorder: Not Present Hallucinations: Denies Suicidal Ideation: Denies Homicidal Ideation: Denies Insight/Judgement: Poor Sleep: Fair Appetite: Fair Muscle strength/Tone: Normal Gait/Station: Normal Psychiatric Findings - Problem List ([place] 1, 2,3) (1) Depressive disorder Status: Chronic Comment: . (2) Opioid dependence with withdrawal Status: Acute Comment: . (3) Nicotine dependence Status: Acute Qualifiers: Nicotine product type: cigarettes Substance use status: in withdrawal Qualified Code(s): F17.213 - Nicotine dependence, cigarettes, with withdrawal Comment: . (4) Substance induced mood disorder Status: Suspected Comment: . (5) Cannabis dependence, uncomplicated Status: Chronic Comment: . - Initial Treatment Plan Initial Treatment Plan: Psychoeducation provided. Detoxification in progress. Will order Prozac 20mg daily. Benefits and side effects discussed. Verbal consent given.
--- NOTE | 2019-05-26 11:39 | PN ---
[facility] COWS - Scale Resting Pulse: 0= [place] 80 or Below Sweatin= Chills/Flushing Restless Observation: 0= Sits Still Pupil Size: 1= Pupils >than Normal Bone or Joint Aches: 2= Severe Diffuse Aches Runny Nose/ Eye Tearin= None GI Upset > 30mins: 2= Nausea/Diarrhea Tremor Observation of Outstretched Hands: 2= Slight Tremor Visible Yawning Observation: 0= None Anxiety or Irritability: 2=Irritable/Anxious Goose Flesh Skin: 3=Piloerection COWS Score: 13 [facility] Progress Note (SOAP) Subjective: 38 years old male admitted on 05/25/19 for opiate withdrawal sx management treating with methadone detox regiment general body ache muscle cramping anxiety Objective: 05/26/19 11:39 Vital Signs Temperature 96.3 F L 05/26/19 08:32 Pulse Rate 67 05/26/19 08:32 Respiratory Rate 18 05/26/19 08:32 Blood Pressure 99/65 05/26/19 08:32 O2 Sat by Pulse Oximetry (%) Laboratory Last Values WBC 10.0 K/mm3 (4.0-10.0) 05/25/19 13:40 RBC 4.55 M/mm3 (4.00-5.60) 05/25/19 13:40 Hgb 14.0 GM/dL (11.7-16.9) 05/25/19 13:40 Hct 41.2 % (35.4-49) 05/25/19 13:40 MCV 90.6 fl (80-96) 05/25/19 13:40 MCH 30.7 pg (25.7-33.7) 05/25/19 13:40 MCHC 33.9 g/dl (32.0-35.9) 05/25/19 13:40 RDW 13.6 % (11.9-15.9) 05/25/19 13:40 Plt Count 250 K/MM3 (134-434) D 05/25/19 13:40 MPV 9.2 fl (7.5-11.1) 05/25/19 13:40 Sodium 143 mmol/L (136-145) 05/25/19 13:40 Potassium 4.0 mmol/L (3.5-5.1) 05/25/19 13:40 Chloride 108 mmol/L (98-107) H 05/25/19 13:40 Carbon Dioxide 28 mmol/L (21-32) 05/25/19 13:40 Anion Gap 7 MMOL/L (8-16) L 05/25/19 13:40 BUN 18.1 mg/dL (7-18) H 05/25/19 13:40 Creatinine 0.9 mg/dL (0.55-1.3) 05/25/19 13:40 Est GFR (CKD-EPI)AfAm 126.02 05/25/19 13:40 Est GFR (CKD-EPI)NonAf 108.73 05/25/19 13:40 Random Glucose 87 mg/dL (74-106) 05/25/19 13:40 Calcium 9.1 mg/dL (8.5-10.1) 05/25/19 13:40 Total Bilirubin 0.3 mg/dL (0.2-1) 05/25/19 13:40 AST 15 U/L (15-37) 05/25/19 13:40 ALT 18 U/L (13-61) 05/25/19 13:40 Alkaline Phosphatase 56 U/L (45-117) 05/25/19 13:40 Total Protein 6.9 g/dl (6.4-8.2) 05/25/19 13:40 Albumin 4.1 g/dl (3.4-5.0) 05/25/19 13:40 RPR Titer Nonreactive (NONREACTIVE) 05/26/19 08:00 lab noted Assessment: 05/26/19 11:39 opiate withdrawal Plan: methadone regiment
[2019-05-26] MEDS: cloNIDine HCL 0.1 MG TABLET PO PRN ×2 (13:32→17:21)
[2019-05-26] MEDS: FLUoxetine HCL 20 MG CAPSULE PO SCH (13:32)
[2019-05-26] MEDS: THIAMINE HCL 100 MG TABLET (FP) PO SCH (22:28)
[2019-05-26] MEDS: MELATONIN 5 MG TABLETS PO SCH (22:28)
[2019-05-27] MEDS: METHOCARBAMOL 500 MG TABLET PO PRN ×3 (01:49→18:35)
[2019-05-27] MEDS: NICOTINE POLACRILEX 2 MG GUM BUC PRN ×6 (01:51→20:06)
[2019-05-27] MEDS: GABAPENTIN 300 MG CAPSULE PO SCH ×3 (05:08→22:02)
[2019-05-27] MEDS: hydrOXYzine PAMOATE 25 MG CAPSULE (FP) PO SCH ×5 (05:09→22:02)
[2019-05-27] MEDS: diazePAM 5 MG TABLET PO PRN ×4 (05:11→18:33)
[2019-05-27] MEDS ORDERED: METHADONE HCL 10 MG TABLET (FOR DETOX USE ONLY) PO ONE (10:00)
[2019-05-27] MEDS: NICOTINE 7 MG/24 HOURS TOPICAL PATCH TD SCH (10:15)
[2019-05-27] MEDS: PRENATAL VITAMINS W/ FOLIC ACID TABLET (FP) PO SCH (10:15)
[2019-05-27] MEDS: FLUoxetine HCL 20 MG CAPSULE PO SCH (10:15)
--- NOTE | 2019-05-27 11:21 | PN ---
[facility] COWS - Scale Resting Pulse: 0= [place] 80 or Below Sweatin= No chills or Flushing Restless Observation: 0= Sits Still Pupil Size: 0= Normal to Room Light Bone or Joint Aches: 0= None Runny Nose/ Eye Tearin= Nasal Congestion GI Upset > 30mins: 0= None Tremor Observation of Outstretched Hands: 0= None Yawning Observation: 0= None Anxiety or Irritability: 0= None Goose Flesh Skin: 0=Smooth Skin COWS Score: 1 [facility] Progress Note (SOAP) Subjective: Feeling well, asking for nicotine gum Objective: 05/27/19 11:18 Laboratory Tests 05/25/19 05/25/19 05/26/19 13:40 13:40 08:00 WBC 10.0 RBC 4.55 Hgb 14.0 Hct 41.2 MCV 90.6 MCH 30.7 MCHC 33.9 RDW 13.6 Plt Count 250 D MPV 9.2 Sodium 143 Potassium 4.0 Chloride 108 H Carbon Dioxide 28 Anion Gap 7 L BUN 18.1 H Creatinine 0.9 Est GFR (CKD-EPI)AfAm 126.02 Est GFR (CKD-EPI)NonAf 108.73 Random Glucose 87 Calcium 9.1 Total Bilirubin 0.3 AST 15 ALT 18 Alkaline Phosphatase 56 Total Protein 6.9 Albumin 4.1 RPR Titer Nonreactive Vital Signs Temperature 96.6 F L 05/27/19 08:48 Pulse Rate 69 05/27/19 08:48 Respiratory Rate 18 05/27/19 08:48 Blood Pressure 117/74 05/27/19 08:48 O2 Sat by Pulse Oximetry (%) PE Gnl: WDWN, in no distress Mental status: awake, alert, nl language function Motor: nl Gait: steady, ambulating in hallway Assessment: 05/27/19 11:19 1. Opioid use disorder 2. Nicotine dependence Plan: 1. continue Methadone withdrawal protocol 2. nicotine gum
[2019-05-27] MEDS: cloNIDine HCL 0.1 MG TABLET PO PRN (22:02)
[2019-05-27] MEDS: THIAMINE HCL 100 MG TABLET (FP) PO SCH (22:02)
[2019-05-27] MEDS: MELATONIN 5 MG TABLETS PO SCH (22:04)
[2019-05-28] MEDS: diazePAM 5 MG TABLET PO PRN ×2 (04:59→10:29)
[2019-05-28] MEDS: NICOTINE POLACRILEX 2 MG GUM BUC PRN ×4 (05:04→21:14)
[2019-05-28] MEDS: GABAPENTIN 300 MG CAPSULE PO SCH ×3 (05:13→21:09)
[2019-05-28] MEDS: hydrOXYzine PAMOATE 25 MG CAPSULE (FP) PO SCH ×5 (05:13→21:10)
[2019-05-28] MEDS: METHOCARBAMOL 500 MG TABLET PO PRN ×3 (05:13→18:01)
[2019-05-28] MEDS ORDERED: METHADONE HCL 5 MG TABLET (FOR DETOX USE ONLY) ONE (08:42)
[2019-05-28] MEDS ORDERED: METHADONE HCL 10 MG TABLET (FOR DETOX USE ONLY) ONE (08:42)
[2019-05-28] MEDS ORDERED: METHADONE (DETOX) 10 MG, METHADONE (DETOX) 5 MG PO ONE (10:00)
[2019-05-28] MEDS: PRENATAL VITAMINS W/ FOLIC ACID TABLET (FP) PO SCH (10:23)
[2019-05-28] MEDS: FLUoxetine HCL 20 MG CAPSULE PO SCH (10:24)
[2019-05-28] MEDS: NICOTINE 7 MG/24 HOURS TOPICAL PATCH TD SCH (10:25)
--- NOTE | 2019-05-28 11:02 | PN ---
[facility] COWS - Scale Resting Pulse: 1= [place] 81-100 Sweatin= Chills/Flushing Restless Observation: 1= Difficult to Sit Still Pupil Size: 0= Normal to Room Light Bone or Joint Aches: 1= Mild Discomfort Runny Nose/ Eye Tearin= None GI Upset > 30mins: 0= None Tremor Observation of Outstretched Hands: 0= None Yawning Observation: 1= 1-2x During Session Anxiety or Irritability: 2=Irritable/Anxious Goose Flesh Skin: 0=Smooth Skin COWS Score: 7 S Progress Note (SOAP) Subjective: c/o chills, muscle aches, and anxiety. Objective: 05/28/19 11:01 Vital Signs 05/28/19 05/28/19 05/28/19 03:30 07:55 08:50 Temperature 97.9 F 99.3 F Pulse Rate 79 81 Respiratory 18 18 18 Rate Blood Pressure 112/75 105/66 Laboratory Last Values WBC 10.0 K/mm3 (4.0-10.0) 05/25/19 13:40 RBC 4.55 M/mm3 (4.00-5.60) 05/25/19 13:40 Hgb 14.0 GM/dL (11.7-16.9) 05/25/19 13:40 Hct 41.2 % (35.4-49) 05/25/19 13:40 MCV 90.6 fl (80-96) 05/25/19 13:40 MCH 30.7 pg (25.7-33.7) 05/25/19 13:40 MCHC 33.9 g/dl (32.0-35.9) 05/25/19 13:40 RDW 13.6 % (11.9-15.9) 05/25/19 13:40 Plt Count 250 K/MM3 (134-434) D 05/25/19 13:40 MPV 9.2 fl (7.5-11.1) 05/25/19 13:40 Sodium 143 mmol/L (136-145) 05/25/19 13:40 Potassium 4.0 mmol/L (3.5-5.1) 05/25/19 13:40 Chloride 108 mmol/L (98-107) H 05/25/19 13:40 Carbon Dioxide 28 mmol/L (21-32) 05/25/19 13:40 Anion Gap 7 MMOL/L (8-16) L 05/25/19 13:40 BUN 18.1 mg/dL (7-18) H 05/25/19 13:40 Creatinine 0.9 mg/dL (0.55-1.3) 05/25/19 13:40 Est GFR (CKD-EPI)AfAm 126.02 05/25/19 13:40 Est GFR (CKD-EPI)NonAf 108.73 05/25/19 13:40 Random Glucose 87 mg/dL (74-106) 05/25/19 13:40 Calcium 9.1 mg/dL (8.5-10.1) 05/25/19 13:40 Total Bilirubin 0.3 mg/dL (0.2-1) 05/25/19 13:40 AST 15 U/L (15-37) 05/25/19 13:40 ALT 18 U/L (13-61) 05/25/19 13:40 Alkaline Phosphatase 56 U/L (45-117) 05/25/19 13:40 Total Protein 6.9 g/dl (6.4-8.2) 05/25/19 13:40 Albumin 4.1 g/dl (3.4-5.0) 05/25/19 13:40 RPR Titer Nonreactive (NONREACTIVE) 05/26/19 08:00 Labs noted. Assessment: 05/28/19 11:01 AOX3, in no acute respiratory distress. Full ROM, ambulating in the unit. Withdrawal symptoms. Plan: continue detox.
[2019-05-28] MEDS: ACETAMINOPHEN 325 MG TABLET (FP) PO PRN ×2 (14:50→23:19)
--- NOTE | 2019-05-28 17:41 | PN ---
Psychiatric Progress Note Vital Signs: Vital Signs Period Temp Pulse Resp BP Sys/Ny Pulse Ox Last 24 Hr 97.1 F-99.3 F 69-81 17-18 102-113/64-75 Date of Session: 05/28/19 Chief Complaint:: " I regret having made that statement about euthanasia." HPI: Day 3 of detoxification. Psychiatric evaluation is sought after this patient has approached staff with this statement : " do you do euthanasia here ? Will someone put me out of my misery ". I cannot take it anymore." Mr Piznao was admitted to [address] [place] [address] for opioid withdrawal syndrome. ROS: Patient is alert and fully oriented. Ambulatory. No somatic complaints offered. Current Medications: Active Medications Generic Name Dose Route Start Last Admin Trade Name Freq PRN Reason Stop Dose Admin Acetaminophen 650 mg 05/25/19 13:36 05/28/19 14:50 Tylenol - PO 650 mg Q6H PRN Administration PAIN LEVEL 4 - 6 Acetaminophen 650 mg 05/25/19 13:36 Tylenol - PO Q6H PRN FEVER Al Hydroxide/Mg Hydroxide 30 ml 05/25/19 13:36 Mylanta Oral Suspension - PO Q6H PRN DYSPEPSIA Bismuth Subsalicylate 30 ml 05/25/19 13:36 Pepto-Bismol Liquid - PO Q1H PRN DIARRHEA Eucalyptus/Menthol/Phenol/Sorbitol 1 each 05/25/19 13:36 Cepastat Lozenge - MM 05/31/19 13:37 Q4H PRN SORE THROAT Fluoxetine HCl 20 mg 05/26/19 12:00 05/28/19 10:24 Prozac - PO 20 mg DAILY GUSTAVO Administration Gabapentin 300 mg 05/25/19 14:00 05/28/19 14:52 Neurontin - PO 300 mg TID GUSTAVO Administration Hydroxyzine Pamoate 25 mg 05/25/19 14:00 05/28/19 14:52 Vistaril - PO 05/31/19 13:37 25 mg Q4HWA GUSTAVO Administration Ibuprofen 400 mg 05/25/19 13:36 Motrin - PO Q6H PRN PAIN LEVEL 1 - 3 Magnesium Citrate 300 ml 05/25/19 13:36 Citroma - PO Q48H PRN CONSTIPATION Magnesium Hydroxide 30 ml 05/25/19 13:36 Milk Of Magnesia - PO PRN PRN CONSTIPATION Melatonin 5 mg 05/25/19 22:00 05/27/19 22:04 Melatonin PO 5 mg HS GUSTAVO Administration Methadone HCl 5 mg 05/30/19 06:00 Dolophine - PO 05/30/19 06:01 ONCE@0600 ONE Methadone HCl 10 mg 05/29/19 10:00 Dolophine - PO 05/29/19 10:01 ONCE ONE Methocarbamol 500 mg 05/25/19 13:36 05/28/19 10:29 Robaxin - PO 05/31/19 13:37 500 mg Q6H PRN Administration MUSCLE SPASMS Nicotine 7 mg 05/25/19 14:14 05/28/19 10:25 Nicoderm Patch - TD Not Given DAILY GUSTAVO Nicotine Polacrilex 2 mg 05/25/19 13:36 05/28/19 12:42 Nicorette Gum - BUC 2 mg Q2H PRN Administration NICOTINE REPLACEMENT RX Multivit/Folic Acid/Iron 1 tab 05/25/19 14:14 05/28/19 10:23 Vitamins (Sjr) - PO 1 tab DAILY GUSTAVO Administration Thiamine HCl 100 mg 05/25/19 22:00 05/27/19 22:02 Vitamin B1 - PO 100 mg HS GUSTAVO Administration Medication(s) Change(s): No indication for medication changes at this time. Current Side Effect: No Lab tests ordered: No Lab tests reviewed: Yes Provider note:: Informed by nurse Dian Vernon of patient's inquiry about euthanasia. Patient is immediately taken to the consultation office for psychiatric evaluation. Chart reviewed. patient interviewed. Mr Pizano promptly recanted his statement. " The staff overreacted. I did not mean it. That was a simple question. I don't want to be sent to a psychiatric rosario." Patient is angry, overly anxious, upset, emotionally incontinent and tearful. He admits to feeling depressed, despondent over his multiple stressors (homelessness, chronic unemployment, estrangement from relatives, financial strains) and ashamed of his current social situation. Mr Pizano has realized the seriousness of his remark and he is currently trying to minimize its implications. Patient, at the time of this examination, denies experiencing suicidal ideation or plan. " I was upset, that's why I asked the nurse about euthanasia." Patient shows no evidence of psychosis. Mr Pizano is placed under Constant Observation for safety (questionable impulse control). Re- evaluation in the morning by Liaison psychiatrist on duty (Thursday coverage). Discussed with the nursing staff. Total face to face time:: 75 Mental Status Exam - Mental Status Exam Alert and Oriented to: Time, Place, Person Cognitive Function: Good Patient Appearance: Disheveled Mood: Angry, Sad, Anxious, Irritable Affect: Mood Congruent, Constricted Patient Behavior: Crying Speech Pattern: Clear Voice Loudness: Normal Thought Process: Goal Oriented Thought Disorder: Not Present Hallucinations: Denies Suicidal Ideation: Denies (denies suicidal ideation on questioning. However, the patient has expressed thoughts of via euthanasia ) Homicidal Ideation: Denies Insight/Judgement: Poor, Impaired Sleep: Well Appetite: Good Gait/Station: Normal Psychiatric Treatment Plan - Problem List (1) Depressive disorder Current Visit: Yes Comment: . (2) Opioid dependence with withdrawal Current Visit: Yes Comment: . (3) Cannabis dependence, uncomplicated Current Visit: Yes Comment: . (4) Nicotine dependence Current Visit: Yes Qualifiers: Nicotine product type: cigarettes Substance use status: uncomplicated Ministerio lified Code(s): F17.210 - Nicotine dependence, cigarettes, uncomplicated Comment: . (5) Substance induced mood disorder Current Visit: Yes Comment: .
[2019-05-28] MEDS: THIAMINE HCL 100 MG TABLET (FP) PO SCH (21:09)
[2019-05-28] MEDS: MELATONIN 5 MG TABLETS PO SCH (21:09)
[2019-05-28] MEDS: IBUPROFEN 400 MG TABLET (FP) PO PRN (21:12)
[2019-05-29] MEDS: METHOCARBAMOL 500 MG TABLET PO PRN ×5 (00:03→22:14)
[2019-05-29] MEDS: hydrOXYzine PAMOATE 25 MG CAPSULE (FP) PO SCH ×3 (05:46→13:12)
[2019-05-29] MEDS: GABAPENTIN 300 MG CAPSULE PO SCH ×3 (05:46→22:14)
[2019-05-29] MEDS: NICOTINE POLACRILEX 2 MG GUM BUC PRN ×6 (05:48→22:16)
[2019-05-29] MEDS ORDERED: METHADONE HCL 10 MG TABLET (FOR DETOX USE ONLY) PO ONE (10:00)
[2019-05-29] MEDS: PRENATAL VITAMINS W/ FOLIC ACID TABLET (FP) PO SCH (10:02)
[2019-05-29] MEDS: FLUoxetine HCL 20 MG CAPSULE PO SCH (10:03)
[2019-05-29] MEDS: NICOTINE 7 MG/24 HOURS TOPICAL PATCH TD SCH (10:05)
--- NOTE | 2019-05-29 10:22 | PN ---
BHS COWS - Scale Resting Pulse: 2= [place] 101-120 Sweatin= No chills or Flushing Restless Observation: 0= Sits Still Pupil Size: 0= Normal to Room Light Bone or Joint Aches: 1= Mild Discomfort Runny Nose/ Eye Tearin= None GI Upset > 30mins: 0= None Tremor Observation of Outstretched Hands: 0= None Yawning Observation: 0= None Anxiety or Irritability: 1=Feels Anxious/Irritable Goose Flesh Skin: 0=Smooth Skin COWS Score: 4 BHS Progress Note (SOAP) Subjective: 38 years old male admitted on 05/25/19 for opiate withdrawal sx management treating with methadone detox regiment requests valium for anxiety because "I am in a lot of pain" discussed risks of benzo mixed with opiate current on 1:1 for suicidal by proxy psychiatric referral rule out continuation of 1:1 Objective: 05/29/19 10:22 Vital Signs Temperature 97.0 F L 05/29/19 08:50 Pulse Rate 101 H 05/29/19 08:50 Respiratory Rate 18 05/29/19 08:50 Blood Pressure 113/74 05/29/19 08:50 O2 Sat by Pulse Oximetry (%) Laboratory Last Values WBC 10.0 K/mm3 (4.0-10.0) 05/25/19 13:40 RBC 4.55 M/mm3 (4.00-5.60) 05/25/19 13:40 Hgb 14.0 GM/dL (11.7-16.9) 05/25/19 13:40 Hct 41.2 % (35.4-49) 05/25/19 13:40 MCV 90.6 fl (80-96) 05/25/19 13:40 MCH 30.7 pg (25.7-33.7) 05/25/19 13:40 MCHC 33.9 g/dl (32.0-35.9) 05/25/19 13:40 RDW 13.6 % (11.9-15.9) 05/25/19 13:40 Plt Count 250 K/MM3 (134-434) D 05/25/19 13:40 MPV 9.2 fl (7.5-11.1) 05/25/19 13:40 Sodium 143 mmol/L (136-145) 05/25/19 13:40 Potassium 4.0 mmol/L (3.5-5.1) 05/25/19 13:40 Chloride 108 mmol/L (98-107) H 05/25/19 13:40 Carbon Dioxide 28 mmol/L (21-32) 05/25/19 13:40 Anion Gap 7 MMOL/L (8-16) L 05/25/19 13:40 BUN 18.1 mg/dL (7-18) H 05/25/19 13:40 Creatinine 0.9 mg/dL (0.55-1.3) 05/25/19 13:40 Est GFR (CKD-EPI)AfAm 126.02 05/25/19 13:40 Est GFR (CKD-EPI)NonAf 108.73 05/25/19 13:40 Random Glucose 87 mg/dL (74-106) 05/25/19 13:40 Calcium 9.1 mg/dL (8.5-10.1) 05/25/19 13:40 Total Bilirubin 0.3 mg/dL (0.2-1) 05/25/19 13:40 AST 15 U/L (15-37) 05/25/19 13:40 ALT 18 U/L (13-61) 05/25/19 13:40 Alkaline Phosphatase 56 U/L (45-117) 05/25/19 13:40 Total Protein 6.9 g/dl (6.4-8.2) 05/25/19 13:40 Albumin 4.1 g/dl (3.4-5.0) 05/25/19 13:40 RPR Titer Nonreactive (NONREACTIVE) 05/26/19 08:00 lab noted Assessment: 05/29/19 10:22 opiate withdrawal Plan: methadone regiment
[2019-05-29] MEDS: IBUPROFEN 400 MG TABLET (FP) PO PRN (13:12)
--- NOTE | 2019-05-29 15:14 | PN ---
Psychiatric Progress Note Vital Signs: Vital Signs Period Temp Pulse Resp BP Sys/Ny Pulse Ox Last 24 Hr 97.0 F-97.4 F 85-101 18-18 91-117/61-74 Date of Session: 05/29/19 Chief Complaint:: Re evaulation of 1:1 observation. HPI: Patient admitted to for opiate dependence. ROS: Patient presents as calm and cooperative but reports feeeling hopeless and depressed. Current Medications: Active Medications Generic Name Dose Route Start Last Admin Trade Name Freq PRN Reason Stop Dose Admin Acetaminophen 650 mg 05/25/19 13:36 05/28/19 23:19 Tylenol - PO 650 mg Q6H PRN Administration PAIN LEVEL 4 - 6 Acetaminophen 650 mg 05/25/19 13:36 Tylenol - PO Q6H PRN FEVER Al Hydroxide/Mg Hydroxide 30 ml 05/25/19 13:36 Mylanta Oral Suspension - PO Q6H PRN DYSPEPSIA Bismuth Subsalicylate 30 ml 05/25/19 13:36 Pepto-Bismol Liquid - PO Q1H PRN DIARRHEA Eucalyptus/Menthol/Phenol/Sorbitol 1 each 05/25/19 13:36 Cepastat Lozenge - MM 05/31/19 13:37 Q4H PRN SORE THROAT Fluoxetine HCl 20 mg 05/26/19 12:00 05/29/19 10:03 Prozac - PO 20 mg DAILY GUSTAVO Administration Gabapentin 300 mg 05/25/19 14:00 05/29/19 13:12 Neurontin - PO 300 mg TID GUSTAVO Administration Hydroxyzine Pamoate 25 mg 05/25/19 14:00 05/29/19 13:12 Vistaril - PO 05/31/19 13:37 25 mg Q4HWA GUSTAVO Administration Ibuprofen 400 mg 05/25/19 13:36 05/29/19 13:12 Motrin - PO 400 mg Q6H PRN Administration PAIN LEVEL 1 - 3 Magnesium Citrate 300 ml 05/25/19 13:36 Citroma - PO Q48H PRN CONSTIPATION Magnesium Hydroxide 30 ml 05/25/19 13:36 Milk Of Magnesia - PO PRN PRN CONSTIPATION Melatonin 5 mg 05/25/19 22:00 05/28/19 21:09 Melatonin PO 5 mg HS GUSTAVO Administration Methadone HCl 5 mg 05/30/19 06:00 Dolophine - PO 05/30/19 06:01 ONCE@0600 ONE Methocarbamol 500 mg 05/25/19 13:36 05/29/19 10:03 Robaxin - PO 05/31/19 13:37 500 mg Q6H PRN Administration MUSCLE SPASMS Nicotine 7 mg 05/25/19 14:14 05/29/19 10:05 Nicoderm Patch - TD Not Given DAILY GUSTAVO Nicotine Polacrilex 2 mg 05/25/19 13:36 05/29/19 14:57 Nicorette Gum - BUC 2 mg Q2H PRN Administration NICOTINE REPLACEMENT RX Multivit/Folic Acid/Iron 1 tab 05/25/19 14:14 05/29/19 10:02 Vitamins (Sjr) - PO 1 tab DAILY GUSTAVO Administration Thiamine HCl 100 mg 05/25/19 22:00 05/28/19 21:09 Vitamin B1 - PO 100 mg HS GUSTAVO Administration Medication(s) Change(s): Yes. Will order Vistaril 50mg Q4H (anxiety) + Trazodone 50mg HS (Insomnia) + Melatonin 10mg. Benefits and side effects discussed. Patient made aware of the risk of priapism when accepting trazodone. Verbal consent given. Current Side Effect: No Lab tests ordered: No Lab tests reviewed: Yes Provider note:: Patient seen by Dr. Cali yesterday. Dr. Cali note read and appreciated. Patient seen by leader writer for re evaulation of 1:1 after he stated yesterday to staff, "do you do euthanasia here"? As per nursing staff Dian, patient was tearful for approximately four hours yesterday evening after he was seen by Dr. Cali. Thermite Bomb Loader also able to speak to nurses aid sitting 1:1 with patient. As per nurses aid patient has been calm and cooperative. No aggressive or poor impulse control noted. Thermite Bomb Loader able to speak to patient in the office concerning 1:1 close observation status. Patient presents as sad and depressed. Mr. Pizano stated to leader writer, " I feel sad and hopeless." Patient denies thoughts to hurt others but hesitated to answer if he had thoughts to hurt himself but then eventually said "no i do not want to hurt myself", followed by , " I have no one. I don't speak to my mother or father. My dog . I don't know why i exist." Patient then asked leader writer , " do you think i need to go to a psychiatric facility." But then stated "I do not want to go to one. Please don't send me there. I want to go back to work at [employer]". Patient focused on his psychosocial stressors of living in a intermediate, nonexistent relationship with family members, and constant drug use. Patient then stated to leader writer, " Is there somewhere where people can get Euthanized." Patient becoming tearful while speaking to leader writer. Stated, "I'm not sure why i am here. Why am I living? I am in so much pain. I don't want to live like this. I need to be put out of this misery." Thermite Bomb Loader then asked patient if he would want to go to a psychiatric facility. Patient responsed, " Please don't send me there. How long would I be there. I don't want to go there." Thermite Bomb Loader asked patient to rate his depression in which patient responded " 9.75/10." At this time patient is to remain on 1:1 for safety. Nursing staff and Nursing supervisor channel process informed of d ecision to maintain patient on 1:1. Patient is not psychotic but is clearly depressed, hopeless, tearful and having negative thoughts about his existance as evidence of the following statement (" Why am i still here? Why do I exist? Is there somewhere that people are euthanized?). Transferred to a psychiatric facility should be considered as patient has reported feeling severely depressed. Thermite Bomb Loader able to get in contact with CADEN Traore on the psychiatric unit at [facility] ([phone]) concerning bed availability. As per CADEN Traore, Health system does not accept direct transfers to the unit however also stated there should be open beds available tomorrow. CADEN Traore stated patient would have to be sent to the Emergency room for further evaluation. Case discussed on the phone with Dr. Cali. Patient has been cooperative with staff. Patient has not shown any symptoms of psychosis, poor impulse, or aggressive behavior therefore a transfer by 911 without consent is not justified at this time. If a psychiatric transfer is needed patient would need to be 2PC as he is not in agreement to a voluntary transfer to a psychiatric facility. If not transferred to a psychiatric facility it is recommended that patient is connected with a rehab program that offers Medication assisted treatment. Psychiatry liason to follow tomorrow. Total face to face time:: 60 Mental Status Exam - Mental Status Exam Alert and Oriented to: Time, Place, Person Cognitive Function: Good Patient Appearance: Well Groomed Mood: Sad, Withdrawn, Anxious Affect: Flat Patient Behavior: Crying (Tearful) Speech Pattern: Appropriate Voice Loudness: Moderately Soft/Quiet Thought Process: Intact, Goal Oriented Thought Disorder: Not Present Hallucinations: Denies Suicidal Ideation: Denies Homicidal Ideation: Denies Insight/Judgement: Poor Sleep: Poorly Appetite: Fair Muscle strength/Tone: Normal Gait/Station: Normal Psychiatric Treatment Plan - Problem List (1) Depressive disorder Current Visit: Yes Comment: . (2) Opioid dependence with withdrawal Current Visit: Yes Comment: . (3) Nicotine dependence Current Visit: Yes Qualifiers: Nicotine product type: cigarettes Substance use status: uncomplicated Qualified Code(s): F17.210 - Nicotine dependence, cigarettes, uncomplicated Comment: . (4) Substance induced mood disorder Current Visit: Yes Comment: . (5) Cannabis dependence, uncomplicated Current Visit: Yes Comment: .
[2019-05-29] MEDS: hydrOXYzine PAMOATE 50 MG CAPSULE (FP) PO PRN ×2 (16:43→22:14)
[2019-05-29] MEDS ORDERED: MELATONIN 5 MG TABLETS PO SCH (22:00)
[2019-05-29] MEDS ORDERED: traZODone HCL 50 MG TABLET (FP) PO SCH (22:00)
[2019-05-29] MEDS: THIAMINE HCL 100 MG TABLET (FP) PO SCH (22:14)
[2019-05-30] MEDS: METHOCARBAMOL 500 MG TABLET PO PRN ×2 (05:08→11:20)
[2019-05-30] MEDS: GABAPENTIN 300 MG CAPSULE PO SCH ×2 (05:09→13:32)
[2019-05-30] MEDS ORDERED: METHADONE HCL 5 MG TABLET (FOR DETOX USE ONLY) PO ONE (06:00)
[2019-05-30] MEDS: hydrOXYzine PAMOATE 50 MG CAPSULE (FP) PO PRN ×2 (06:43→11:17)
[2019-05-30] MEDS: NICOTINE POLACRILEX 2 MG GUM BUC PRN ×3 (06:44→13:32)
[2019-05-30] MEDS: PRENATAL VITAMINS W/ FOLIC ACID TABLET (FP) PO SCH (09:15)
[2019-05-30] MEDS: FLUoxetine HCL 20 MG CAPSULE PO SCH (09:15)
[2019-05-30] MEDS: NICOTINE 7 MG/24 HOURS TOPICAL PATCH TD SCH (09:19)
[2019-05-30] MEDS ORDERED: ALBUTEROL SO4 HFA INHALER IH PRN (10:37)
--- NOTE | 2019-05-30 11:40 | PN ---
BHS COWS - Scale Resting Pulse: 1= [place] 81-100 Sweatin= No chills or Flushing Restless Observation: 0= Sits Still Pupil Size: 0= Normal to Room Light Bone or Joint Aches: 0= None Runny Nose/ Eye Tearin= None GI Upset > 30mins: 0= None Tremor Observation of Outstretched Hands: 0= None Yawning Observation: 0= None Anxiety or Irritability: 1=Feels Anxious/Irritable Goose Flesh Skin: 0=Smooth Skin COWS Score: 2 BHS Progress Note (SOAP) Subjective: 38 years old male admitted on 05/25/19 for opiate withdrawal sx management treated with methadone detox regiment Mr Pizano has completed the methadone regiment and is tolerated well seen by psychiatrist place on 1:1 for euthanasia patient stated to underwriter mortgage loan that "I am in pain" requests valium and methadone discuss methadone program "I do want to go every day" encourage supportive pharmacotherapy Objective: 05/30/19 12:01 Vital Signs Temperature 97.6 F 05/30/19 08:29 Pulse Rate 83 05/30/19 08:29 Respiratory Rate 16 05/30/19 08:29 Blood Pressure 99/64 05/30/19 08:29 O2 Sat by Pulse Oximetry (%) Laboratory Last Values WBC 10.0 K/mm3 (4.0-10.0) 05/25/19 13:40 RBC 4.55 M/mm3 (4.00-5.60) 05/25/19 13:40 Hgb 14.0 GM/dL (11.7-16.9) 05/25/19 13:40 Hct 41.2 % (35.4-49) 05/25/19 13:40 MCV 90.6 fl (80-96) 05/25/19 13:40 MCH 30.7 pg (25.7-33.7) 05/25/19 13:40 MCHC 33.9 g/dl (32.0-35.9) 05/25/19 13:40 RDW 13.6 % (11.9-15.9) 05/25/19 13:40 Plt Count 250 K/MM3 (134-434) D 05/25/19 13:40 MPV 9.2 fl (7.5-11.1) 05/25/19 13:40 Sodium 143 mmol/L (136-145) 05/25/19 13:40 Potassium 4.0 mmol/L (3.5-5.1) 05/25/19 13:40 Chloride 108 mmol/L (98-107) H 05/25/19 13:40 Carbon Dioxide 28 mmol/L (21-32) 05/25/19 13:40 Anion Gap 7 MMOL/L (8-16) L 05/25/19 13:40 BUN 18.1 mg/dL (7-18) H 05/25/19 13:40 Creatinine 0.9 mg/dL (0.55-1.3) 05/25/19 13:40 Est GFR (CKD-EPI)AfAm 126.02 05/25/19 13:40 Est GFR (CKD-EPI)NonAf 108.73 05/25/19 13:40 Random Glucose 87 mg/dL (74-106) 05/25/19 13:40 Calcium 9.1 mg/dL (8.5-10.1) 05/25/19 13:40 Total Bilirubin 0.3 mg/dL (0.2-1) 05/25/19 13:40 AST 15 U/L (15-37) 05/25/19 13:40 ALT 18 U/L (13-61) 05/25/19 13:40 Alkaline Phosphatase 56 U/L (45-117) 05/25/19 13:40 Total Protein 6.9 g/dl (6.4-8.2) 05/25/19 13:40 Albumin 4.1 g/dl (3.4-5.0) 05/25/19 13:40 RPR Titer Nonreactive (NONREACTIVE) 05/26/19 08:00 05/30/19 12:02 lab noted Assessment: 05/30/19 12:02 opiate withdrawal Plan: methadone regiment
--- NOTE | 2019-05-30 11:58 | PN ---
Psychiatric Progress Note Vital Signs: Vital Signs Period Temp Pulse Resp BP Sys/Ny Pulse Ox Last 24 Hr 96.6 F-98.3 F 69-87 16-18 96-121/63-75 Date of Session: 05/30/19 Chief Complaint:: " I feel empty, hopeless. I am depressed." HPI: Follow-up evaluation. Day 6 of detoxification. Patient has been maintained under Constant Observation (1:1) for suicidal ideation. Mr Pizano continues to express feelings of hopelessness, helplessness and depressed mood. ROS: Patient is ambulatory. No somatic complaints. Intact cognition. Current Medications: Active Medications Generic Name Dose Route Start Last Admin Trade Name Freq PRN Reason Stop Dose Admin Acetaminophen 650 mg 05/25/19 13:36 05/28/19 23:19 Tylenol - PO 650 mg Q6H PRN Administration PAIN LEVEL 4 - 6 Acetaminophen 650 mg 05/25/19 13:36 Tylenol - PO Q6H PRN FEVER Al Hydroxide/Mg Hydroxide 30 ml 05/25/19 13:36 Mylanta Oral Suspension - PO Q6H PRN DYSPEPSIA Albuterol Sulfate 2 puff 05/30/19 10:37 Ventolin Hfa Inhaler - IH Q4H PRN SHORT OF BREATH/WHEEZING Bismuth Subsalicylate 30 ml 05/25/19 13:36 Pepto-Bismol Liquid - PO Q1H PRN DIARRHEA Eucalyptus/Menthol/Phenol/Sorbitol 1 each 05/25/19 13:36 Cepastat Lozenge - MM 05/31/19 13:37 Q4H PRN SORE THROAT Fluoxetine HCl 20 mg 05/26/19 12:00 05/30/19 09:15 Prozac - PO 20 mg DAILY GUSTAVO Administration Gabapentin 300 mg 05/25/19 14:00 05/30/19 05:09 Neurontin - PO 300 mg TID GUSTVAO Administration Hydroxyzine Pamoate 50 mg 05/29/19 15:35 05/30/19 11:17 Vistaril - PO 50 mg Q4H PRN Administration ANXIETY Ibuprofen 400 mg 05/25/19 13:36 05/29/19 13:12 Motrin - PO 400 mg Q6H PRN Administration PAIN LEVEL 1 - 3 Magnesium Citrate 300 ml 05/25/19 13:36 Citroma - PO Q48H PRN CONSTIPATION Magnesium Hydroxide 30 ml 05/25/19 13:36 Milk Of Magnesia - PO PRN PRN CONSTIPATION Melatonin 10 mg 05/29/19 22:00 05/29/19 22:14 Melatonin PO 10 mg HS GUSTAVO Administration Methocarbamol 500 mg 05/25/19 13:36 05/30/19 11:20 Robaxin - PO 05/31/19 13:37 500 mg Q6H PRN Administration MUSCLE SPASMS Nicotine 7 mg 05/25/19 14:14 05/30/19 09:19 Nicoderm Patch - TD Not Given DAILY GUSTAVO Nicotine Polacrilex 2 mg 05/25/19 13:36 05/30/19 11:21 Nicorette Gum - BUC 2 mg Q2H PRN Administration NICOTINE REPLACEMENT RX Multivit/Folic Acid/Iron 1 tab 05/25/19 14:14 05/30/19 09:15 Vitamins (Sjr) - PO 1 tab DAILY GUSTAVO Administration Thiamine HCl 100 mg 05/25/19 22:00 05/29/19 22:14 Vitamin B1 - PO 100 mg HS GUSTAVO Administration Trazodone HCl 50 mg 05/29/19 22:00 05/29/19 22:14 Desyrel - PO 50 mg HS GUSTAVO Administration Medication(s) Change(s): Medications revisited. Prozac is raised to 40 mg/day. Current Side Effect: No Lab tests ordered: No Lab tests reviewed: Yes Provider note:: Chart reviewed. Consult notes by tool programmer Cristina Hernandez : read and appreciated. Nurses's notes are revisited as well. Patient is re- evaluated. Mr Pizano is observed as tearful, sad, depressed and overly anxious. He continues to complain of feeling " extremely depressed, lonely, hopeless and empty." Patient is withdrawn, isolative, anhedonic, tearful at intervals and emotionally incontinent when engaged in conversation. He continues to deny suicidal plan but he remains preoccupied with the idea of euthanasia (a recurrent theme in his current narrative). Mr Pizano is severely depressed, invested in self-destructive thoughts and, in view of his condition, he cannot be trusted for safety. This patient cannot be managed in a [facility] center (detox/rehab). He is a suicide risk. Patient meets criteria for a higher level of psychiatric care. Constant Observation remains in effect. Linux Server Administrator contacted several hospitals for transfer. Attempts denied (no bed available). Contact established with [facility] in [place]. Case discussed with the tool programmer Rhina Macdonald at [phone]. Accepted. Mr Pizano will be transferred to the emergency department at [facility] (psychiatric section) for management and disposition. Discussed with the Multidisciplinary team ([facility]). Patient is converted to 2 status and transferred to [facility] via EMS + assistance from [employer]. Total face to face time:: 75 Mental Status Exam - Mental Status Exam Alert and Oriented to: Time, Place, Person Cognitive Function: Good Patient Appearance: Well Groomed Mood: Depressed, Sad, Withdrawn, Anxious Affect: Mood Congruent, Constricted Patient Behavior: Crying, Cooperative Speech Pattern: Clear, Appropriate Voice Loudness: Normal Thought Process: Intact, Goal Oriented Thought Disorder: Not Present Hallucinations: Denies Suicidal Ideation: Current (patient is ruminating about euthanasia; feels worthless and hopeless; ) Homicidal Ideation: Denies, Current Insight/Judgement: Poor Sleep: Poorly, Difficulty falling asleep Appetite: Poor Gait/Station: Normal Psychiatric Treatment Plan - Problem List (1) Suicide risk Current Visit: Yes Comment: . (2) Depressive disorder Current Visit: Yes Comment: . (3) Opioid dependence with withdrawal Current Visit: Yes Comment: . (4) Cannabis dependence, uncomplicated Current Visit: Yes Comment: . (5) Nicotine dependence Current Visit: Yes Qualifiers: Nicotine product type: cigarettes Substance use status: uncomplicated Qualified Code(s): F17.210 - Nicotine dependence, cigarettes, uncomplicated Comment: . (6) Substance induced mood disorder Current Visit: Yes Comment: . (7) Non-compliance Current Visit: Yes Comment: . Chronicall non-adherent to psychiatric aftercare.
[2019-05-30 13:40] VITALS: BP 91/58; PULSE 67; TEMP 97.2
--- NOTE | 2019-05-30 14:01 | DS ---
[facility] Detox Discharge Summary Admission Date: 05/25/19 Discharge Date: 05/30/19 - History Present History: Opioid Dependence Additional Comments: 38 years old male admitted on 05/25/19 for opiate withdrawal sx management treated with methadone detox regiment alert speech clearly coherently ambulating with steady gait 3rd day 1:1 due to euthanasis case discussed with the psychiatrist 2PC to [facility] due to wishing to be euthanized respiratory clear lungs bilaterally on auscultation no fever no coughing oximeter 98% Vital Signs Temperature 97.2 F L 05/30/19 13:08 Pulse Rate 67 05/30/19 13:08 Respiratory Rate 18 05/30/19 13:08 Blood Pressure 91/58 L 05/30/19 13:08 O2 Sat by Pulse Oximetry (%) Pertinent Past History: time for discharge 110 minutes patient requests valium to re instated and continue methadone while in detox reenforce the risks of bzo and opiate combination patient states that "I just a number to you" and walk away from the program writer - Physical Exam Results Vital Signs: Vital Signs Temperature 97.2 F L 05/30/19 13:08 Pulse Rate 67 05/30/19 13:08 Respiratory Rate 18 05/30/19 13:08 Blood Pressure 91/58 L 05/30/19 13:08 O2 Sat by Pulse Oximetry (%) Pertinent Admission Physical Exam Findings: opiate withdrawal Laboratory Last Values WBC 10.0 K/mm3 (4.0-10.0) 05/25/19 13:40 RBC 4.55 M/mm3 (4.00-5.60) 05/25/19 13:40 Hgb 14.0 GM/dL (11.7-16.9) 05/25/19 13:40 Hct 41.2 % (35.4-49) 05/25/19 13:40 MCV 90.6 fl (80-96) 05/25/19 13:40 MCH 30.7 pg (25.7-33.7) 05/25/19 13:40 MCHC 33.9 g/dl (32.0-35.9) 05/25/19 13:40 RDW 13.6 % (11.9-15.9) 05/25/19 13:40 Plt Count 250 K/MM3 (134-434) D 05/25/19 13:40 MPV 9.2 fl (7.5-11.1) 05/25/19 13:40 Sodium 143 mmol/L (136-145) 05/25/19 13:40 Potassium 4.0 mmol/L (3.5-5.1) 05/25/19 13:40 Chloride 108 mmol/L (98-107) H 05/25/19 13:40 Carbon Dioxide 28 mmol/L (21-32) 05/25/19 13:40 Anion Gap 7 MMOL/L (8-16) L 05/25/19 13:40 BUN 18.1 mg/dL (7-18) H 05/25/19 13:40 Creatinine 0.9 mg/dL (0.55-1.3) 05/25/19 13:40 Est GFR (CKD-EPI)AfAm 126.02 05/25/19 13:40 Est GFR (CKD-EPI)NonAf 108.73 05/25/19 13:40 Random Glucose 87 mg/dL (74-106) 05/25/19 13:40 Calcium 9.1 mg/dL (8.5-10.1) 05/25/19 13:40 Total Bilirubin 0.3 mg/dL (0.2-1) 05/25/19 13:40 AST 15 U/L (15-37) 05/25/19 13:40 ALT 18 U/L (13-61) 05/25/19 13:40 Alkaline Phosphatase 56 U/L (45-117) 05/25/19 13:40 Total Protein 6.9 g/dl (6.4-8.2) 05/25/19 13:40 Albumin 4.1 g/dl (3.4-5.0) 05/25/19 13:40 RPR Titer Nonreactive (NONREACTIVE) 05/26/19 08:00 lab noted - Treatment Hospital Course: Detox Protocol Followed, Detoxed Safely, Responded well, Discharged Condition Good, Rehab Referral Accepted Patient has Accepted a Rehab Referral to: [facility] - Medication Discharge Medications: Ambulatory Orders Fluoxetine HCl 60 mg PO DAILY 05/25/19 Gabapentin 300 mg PO TID 05/25/19 Fluoxetine HCl [Prozac -] 20 mg PO DAILY #30 capsule 05/27/19 - Diagnosis (1) Opioid dependence with withdrawal Status: Acute (2) Substance induced mood disorder Status: Suspected (3) Nicotine dependence Status: Acute Qualifiers: Nicotine product type: cigarettes Substance use status: in withdrawal Qualified Code(s): F17.213 - Nicotine dependence, cigarettes, with withdrawal - AMA Did Patient Leave Against Medical Advice: No COWS (PN) - Opiate Withdrawal Resting Pulse: 0= [place] 80 or Below Sweatin= No chills or Flushing Restless Observation: 0= Sits Still Pupil Size: 0= Normal to Room Light Bone or Joint Aches: 0= None Runny Nose/ Eye Tearin= None GI Upset > 30mins: 0= None Tremor Observation of Outstretched Hands: 0= None Yawning Observation: 0= None Anxiety or Irritability: 1=Feels Anxious/Irritable Goose Flesh Skin: 0=Smooth Skin COWS Score: 1
[2019-05-31] MEDS ORDERED: FLUoxetine HCL 20 MG CAPSULE PO SCH (10:00)
== END 2019-05-30 14:38 | DRG 773 ==
LOC: YASAS 10:56 → Y3N 13:54
PROVIDERS: ADMIT Allergy & Immunology; ATTEND Allergy & Immunology
PROC: HZ2ZZZZ Detoxification Services for Substance Abuse Treatment (ICD-10-PCS; principal; 2019-05-25)
DX: F11.23 Opioid dependence with withdrawal (principal); F12.20 Cannabis dependence, uncomplicated; F17.210 Nicotine dependence, cigarettes, uncomplicated; F19.24 Other psychoactive substance dependence with psychoactive substance-induced mood disorder; F32.9 Major depressive disorder, single episode, unspecified; R45.851 Suicidal ideations; Z91.19 Patient's noncompliance with other medical treatment and regimen; Z59.0 Homelessness
CPT/HCPCS: 36415; 80053; 85027; 86593; 93005; 93010; J0735

== ENCOUNTER 2019-09-03 14:52 | Inpatient (IN) | payer OTHER ==
--- NOTE | 2019-09-03 15:22 | BHS.RME ---
Substance Use & Tx History - Substance Use History Heroin Substance amount: heroin 10 to 15 bags Substance route: Inhalation (ex: sniffing or snorting) Date of Last Use: 09/02/19 - Last Treatment Date of last treatment: 05/25/19 to 05/30/19 Where was last treatment: Detox Physical/Psych/Mental Status - Behavior General Behavior: Increased activity (restlessness, agitation) Eye Contact: Normal - Cooperativeness Cooperativeness: Cooperative - Thinking Thought Processes: Logical Thought content: Future oriented - Physical Health Problems Is patient presently having any pain?: No Does patient presently have any injuries (include location): No Does patient currently have a fever: No COWS - Scale Resting Pulse: 0= [place] 80 or Below Sweatin= Chills/Flushing Restless Observation: 3= Extraneous Movement Pupil Size: 1= Pupils >than Normal Bone or Joint Aches: 2= Severe Diffuse Aches Runny Nose/ Eye Tearin= Nasal Congestion GI Upset > 30mins: 2= Nausea/Diarrhea Tremor Observation: 2= Slight Tremor Visible Yawning Observation: 2= >3x During Session Anxiety or Irritability: 2=Irritable/Anxious Goose Flesh Skin: 0=Smooth Skin COWS Score: 16
--- NOTE | 2019-09-03 15:27 | HP ---
COWS - Scale Resting Pulse: 0= [place] 80 or Below Sweatin= Chills/Flushing Restless Observation: 3= Extraneous Movement Pupil Size: 1= Pupils >than Normal Bone or Joint Aches: 2= Severe Diffuse Aches Runny Nose/ Eye Tearin= Nasal Congestion GI Upset > 30mins: 2= Nausea/Diarrhea Tremor Observation: 2= Slight Tremor Visible Yawning Observation: 2= >3x During Session Anxiety or Irritability: 2=Irritable/Anxious Goose Flesh Skin: 0=Smooth Skin COWS Score: 16 CIWA Score - Admission Criteria [facility]ASAS Guidelines: Admission for Medically Managed Detox: Requires at least one of the followin. CIWA greater than 12 2. Seizures within the past 24 hours 3. Delirium tremens within the past 24 hours 4. Hallucinations within the past 24 hours 5. Acute intervention needed for co occurring medical disorder 6. Acute intervention needed for co occurring psychiatric disorder 7. Severe withdrawal that cannot be handled at a lower level of care (continued vomiting, continued diarrhea, abnormal vital signs) requiring intravenous medication and/or fluids 8. Admitting History and Physical - Admission Chief Complaint: i am here to stop using heroin History of Present Illness: this 39 years old male with heroin dependence seeking detox,withdrawal symptom, History Source: Patient Limitations to Obtaining History: No Limitations - Past Medical History Psych: Yes: Addictions, Depression - Smoking History Smoking history: Current every day smoker Have you smoked in the past 12 months: Yes Aproximately how many cigarettes per day: 5 - Alcohol/Substance Use Hx Alcohol Use: No History of Substance Use: reports: Heroin - Social History Usual Living Arrangement: Yes: Other (homeless) Do you think of yourself as: Straight/Heterosexual ADL: Support Services Occupation: unemployed History of Recent Travel: No Other Social History: homeless,unemployed,no legal issue Admission ROS S - HPI Chief Complaint: i need help to stop using heroin Allergies/Adverse Reactions: Allergies Allergy/AdvReac Type Severity Reaction Status Date / Time No Known Allergies Allergy Verified 09/03/19 16:27 History of Present Illness: this 39 years old male with heroin dependence seeking help to stop,withdrawal symptom, multiple admissions in detox, denied seizure,denied syncope nicotine dependence depression no med longest sobriety 90 days plan for care home residential fx of right hand with surgery at [facility] in 01/01 Exam Limitations: No Limitations - Ebola screening Have you traveled outside of the country in the last 21 days: No Have you been sick,other than usual withdrawal symptoms: No Do you have a fever: No - Review of Systems Constitutional: Chills, Loss of Appetite, Malaise, Night Sweats, Changes in sleep, Weakness EENT: reports: Tearing, Nose Congestion Respiratory: reports: No Symptoms reported Cardiac: reports: Syncope GI: reports: Diarrhea, Nausea, Poor Appetite, Abdominal cramping : reports: No Symptoms Reported Musculoskeletal: reports: Back Pain, Joint Pain, Muscle Pain Integumentary: reports: Dryness Neuro: reports: Headache, Tremors Endocrine: reports: No Symptoms Reported Hematology: reports: No Symptoms Reported Psychiatric: reports: No Sypmtoms Reported, Judgement Intact, Mood/Affect Appropiate, Orientated x3, Depressed Other Systems: Reviewed and Negative Patient History - Patient Medical History Hx Anemia: No Hx Asthma: No Hx Chronic Obstructive Pulmonary Disease (COPD): No Hx Cancer: No Hx Cardiac Disorders: No Hx Congestive Heart Failure: No Hx Hypertension: No Hx Hypercholesterolemia: No Hx Pacemaker: No HX Cerebrovascular Accident: No Hx Seizures: No Hx Dementia: No Hx Diabetes: No Hx Gastrointestinal Disorders: No Hx Liver Disease: No Hx Genitourinary Disorders: No Hx Sexually Transmitted Disorders: No Hx Renal Disease (ESRD): No Hx Thyroid Disease: No Hx Human Immunodeficiency Virus (HIV): No (negative in 2019) Hx Hepatitis C: No Hx Depression: No Hx Suicide Attempt: No Hx Bipolar Disorder: No Hx Schizophrenia: No Other Medical History: no suicidal,no homicidal - Patient Surgical History Past Surgical History: Yes Hx Neurologic Surgery: No Hx Cataract Extraction: No Hx Cardiac Surgery: No Hx Lung Surgery: No Hx Breast Surgery: No Hx Breast Biopsy: No Hx Abdominal Surgery: No Hx Appendectomy: No Hx Cholecystectomy: No Hx Genitourinary Surgery: No Hx Section: No Hx Orthopedic Surgery: Yes (fx right hand in 01/01 [place]) Anesthesia Reaction: No - PPD History Documented Results: Negative w/o proof Implanted On Prior [facility] Admission?: Yes Date: 06/16/18 Results: 0 MM PPD to be Administered?: Yes - Smoking Cessation Smoking history: Current every day smoker Have you smoked in the past 12 months: Yes Aproximately how many cigarettes per day: 5 Cigars Per Day: 0 Hx Chewing Tobacco Use: No Initiated information on smoking cessation: Yes 'Breaking Loose' booklet given: 09/03/19 - Substance & Tx. History Hx Alcohol Use: No Hx Substance Use: Yes Substance Use Type: Heroin Hx Substance Use Treatment: Yes ([facility] 05/25/19 to 05/30/19) - Substances abused Heroin Substance route: Inhalation Frequency: Daily Amount used: 10 to 15 bags Age of first use: 36 Date of last use: 09/02/19 Marijuana/Hashish Frequency: 3-6 times per week Amount used: 10$ Age of first use: 16 Date of last use: 09/01/19 Admission Physical Exam [facility] - Vital Signs Vital Signs: Vital Signs Temperature 98.4 F 09/03/19 17:17 Pulse Rate 58 L 09/03/19 17:17 Respiratory Rate 18 09/03/19 17:17 Blood Pressure 127/83 09/03/19 17:17 O2 Sat by Pulse Oximetry (%) - Physical General Appearance: Yes: Moderate Distress, Tremorous, Irritable, Sweating HEENTM: Yes: Normal ENT Inspection, FABBY, Pharynx Normal Respiratory: Yes: Lungs Clear, Normal Breath Sounds, No Respiratory Distress Neck: Yes: Within Normal Limits, Supple, Trachea in good position Breast: Yes: Within Normal Limits Cardiology: Yes: Within Normal Limits, Regular Rhythm, Regular Rate, S1, S2 Abdominal: Yes: Within Normal Limits, Normal Bowel Sounds, Non Tender, Soft Genitourinary: Yes: Within Normal Limits Back: Yes: Muscle Spasm Musculoskeletal: Yes: Back pain, Joint Stiffness, Muscle Pain Extremities: Yes: Tremors Neurological: Yes: perioperative nurse II-XII NML intact, Alert, Motor Strength 5/5 Integumentary: Yes: Dry, Rash (right forearm) Lymphatic: Yes: Within Normal Limits - Diagnostic (1) Opioid dependence with withdrawal Current Visit: No Status: Acute Comment: . (2) Nicotine dependence Current Visit: No Status: Acute Qualifiers: Nicotine product type: cigarettes Substance use status: in withdrawal Qualified Code(s): F17.213 - Nicotine dependence, cigarettes, with withdrawal Comment: . (3) Cannabis dependence, uncomplicated Current Visit: No Status: Chronic Comment: . Cleared for Admission [facility] - Detox or Rehab [facility] Level of Care: Medically Managed Detox Regimen/Protocol: Methadone Breathalyzer - Breathalyzer Breathalyzer: 0 Urine Drug Screen - Test Device Lot number: [id number] Expiration date: 05/24/20 - Control Is test valid?: Yes - Results Drug screen NEGATIVE: No Urine drug screen results: THC-Marijuana, MOP-Opiates Inpatient Rehab Admission - Rehab Decision to Admit Inpatient rehab admission?: No
[2019-09-03] MEDS ORDERED: ONDANSETRON *ODT* 4 MG TABLET SL ONE (15:41)
[2019-09-03] MEDS ORDERED: ACETAMINOPHEN 325 MG TABLET (FP) PO PRN ×2 (15:41)
[2019-09-03] MEDS ORDERED: METHADONE HCL 10 MG TABLET (FOR DETOX USE ONLY) PO ONE (15:41)
[2019-09-03] MEDS ORDERED: BISMUTH SUBSALICYLATE 524 MG/30 ML UD PO PRN (15:41)
[2019-09-03] MEDS ORDERED: cloNIDine HCL 0.1 MG TABLET PO PRN (15:41)
[2019-09-03] MEDS ORDERED: MENTHOL/PHENOL 1 EACH UD MM PRN (15:41)
[2019-09-03] MEDS ORDERED: MAGNESIUM HYDROX 2400MG/30ML ORAL SUSPENSION 30 ML CUP PO PRN (15:41)
[2019-09-03] MEDS ORDERED: MAGNESIUM CITRATE 300 ML BOTTLE PO PRN (15:41)
[2019-09-03] MEDS ORDERED: MAG HYDROX/AL HYDROX/SIMETH 30 ML UNIT-DOSE CUP PO PRN (15:41)
[2019-09-03 16:38] VITALS: BMI 24.2
[2019-09-03] MEDS: diazePAM 5 MG TABLET PO PRN ×2 (17:27→21:10)
[2019-09-03] MEDS: hydrOXYzine PAMOATE 25 MG CAPSULE (FP) PO SCH ×2 (17:27→21:11)
[2019-09-03] MEDS: METHOCARBAMOL 500 MG TABLET PO PRN (21:10)
[2019-09-03] MEDS: MELATONIN 5 MG TABLETS PO SCH (21:10)
[2019-09-03] MEDS: NICOTINE POLACRILEX 2 MG GUM BUC PRN (21:11)
[2019-09-03] MEDS: THIAMINE HCL 100 MG TABLET (FP) PO SCH (21:11)
[2019-09-03 22:43] LABS: URINE APPEARANCE CLEAR; URINE BILIRUBIN NEGATIVE (NEGATIVE); URINE COLOR YELLOW; URINE GLUCOSE (UA) NEGATIVE (NEGATIVE); URINE KETONE TRACE (NEGATIVE); URINE LEUK ESTERASE NEGATIVE (NEGATIVE); URINE NITRITE NEGATIVE (NEGATIVE); URINE PROTEIN NEGATIVE (NEGATIVE); URINE UROBILINOGEN 0.2 mg/dL (0.2-1.0)
[2019-09-04] MEDS: hydrOXYzine PAMOATE 25 MG CAPSULE (FP) PO SCH ×5 (06:19→21:43)
[2019-09-04] MEDS: diazePAM 5 MG TABLET PO PRN ×4 (06:19→21:44)
[2019-09-04] MEDS: NICOTINE POLACRILEX 2 MG GUM BUC PRN ×5 (06:20→21:45)
[2019-09-04] MEDS ORDERED: METHADONE HCL 10 MG TABLET (FOR DETOX USE ONLY) ONE (08:51)
[2019-09-04] MEDS ORDERED: METHADONE HCL 5 MG TABLET (FOR DETOX USE ONLY) ONE (08:52)
[2019-09-04 09:59] LABS: HEMATOCRIT 44.6 % (35.4-49); HEMOGLOBIN 14.8 GM/dL (11.7-16.9); MCH 30.7 pg (25.7-33.7); MCHC 33.3 g/dl (32.0-35.9); MEAN CELL VOLUME 92.2 fl (80-96); PLATELET COUNT 289 K/MM3 (134-434); RBC 4.83 M/mm3 (4.00-5.60); RDW 13.7 % (11.9-15.9); WHITE BLOOD COUNT 8.2 K/mm3 (4.0-10.0)
[2019-09-04] MEDS ORDERED: METHADONE (DETOX) 20 MG, METHADONE (DETOX) 5 MG PO ONE (10:00)
[2019-09-04] MEDS: METHOCARBAMOL 500 MG TABLET PO PRN ×3 (10:04→21:42)
[2019-09-04] MEDS: NICOTINE 21 MG/24 HOURS TOPICAL PATCH TD SCH (10:04)
[2019-09-04] MEDS: PRENATAL VITAMINS W/ FOLIC ACID TABLET (FP) PO SCH (10:04)
[2019-09-04 10:13] LABS: ALBUMIN 4.1 g/dl (3.4-5.0); BILIRUBIN,TOTAL 0.5 mg/dL (0.2-1); BLOOD UREA NITROGEN 16.2 mg/dL (7-18); CALCIUM 8.9 mg/dL (8.5-10.1); CREATININE 1.1 mg/dL (0.55-1.3); POTASSIUM 4.1 mmol/L (3.5-5.1); TOT PROT 6.7 g/dl (6.4-8.2)
--- NOTE | 2019-09-04 10:47 | PN ---
BHS COWS - Scale Resting Pulse: 0= [place] 80 or Below Sweatin= Chills/Flushing Restless Observation: 1= Difficult to Sit Still Pupil Size: 0= Normal to Room Light Bone or Joint Aches: 2= Severe Diffuse Aches Runny Nose/ Eye Tearin= Nasal Congestion GI Upset > 30mins: 0= None Tremor Observation of Outstretched Hands: 2= Slight Tremor Visible Yawning Observation: 1= 1-2x During Session Anxiety or Irritability: 2=Irritable/Anxious Goose Flesh Skin: 0=Smooth Skin COWS Score: 10 BHS Progress Note (SOAP) Subjective: Complaints of shaking, shaking and anxiety. Objective: 09/04/19 10:44 Vital Signs 09/04/19 09/04/19 09/04/19 06:00 06:35 08:44 Temperature 97.7 F 97.5 F L Pulse Rate 55 L 73 Respiratory 18 18 Rate Blood Pressure 99/64 112/62 O2 Sat by Pulse 97 Oximetry (%) Laboratory Last Values WBC 8.2 K/mm3 (4.0-10.0) 09/04/19 07:10 RBC 4.83 M/mm3 (4.00-5.60) 09/04/19 07:10 Hgb 14.8 GM/dL (11.7-16.9) 09/04/19 07:10 Hct 44.6 % (35.4-49) 09/04/19 07:10 MCV 92.2 fl (80-96) 09/04/19 07:10 MCH 30.7 pg (25.7-33.7) 09/04/19 07:10 MCHC 33.3 g/dl (32.0-35.9) 09/04/19 07:10 RDW 13.7 % (11.9-15.9) 09/04/19 07:10 Plt Count 289 K/MM3 (134-434) 09/04/19 07:10 MPV 9.0 fl (7.5-11.1) 09/04/19 07:10 Sodium 142 mmol/L (136-145) 09/04/19 07:10 Potassium 4.1 mmol/L (3.5-5.1) 09/04/19 07:10 Chloride 105 mmol/L (98-107) 09/04/19 07:10 Carbon Dioxide 34 mmol/L (21-32) H 09/04/19 07:10 Anion Gap 3 MMOL/L (8-16) L 09/04/19 07:10 BUN 16.2 mg/dL (7-18) 09/04/19 07:10 Creatinine 1.1 mg/dL (0.55-1.3) 09/04/19 07:10 Est GFR (CKD-EPI)AfAm 98.18 09/04/19 07:10 Est GFR (CKD-EPI)NonAf 84.71 09/04/19 07:10 Random Glucose 86 mg/dL (74-106) 09/04/19 07:10 Calcium 8.9 mg/dL (8.5-10.1) 09/04/19 07:10 Total Bilirubin 0.5 mg/dL (0.2-1) 09/04/19 07:10 AST 16 U/L (15-37) 09/04/19 07:10 ALT 26 U/L (13-61) 09/04/19 07:10 Alkaline Phosphatase 61 U/L (45-117) 09/04/19 07:10 Total Protein 6.7 g/dl (6.4-8.2) 09/04/19 07:10 Albumin 4.1 g/dl (3.4-5.0) 09/04/19 07:10 Urine Color Yellow 09/03/19 19:58 Urine Appearance Clear 09/03/19 19:58 Urine pH 5.0 (5.0-8.0) D 09/03/19 19:58 Ur Specific [place] 1.027 (1.010-1.035) 09/03/19 19:58 Urine Protein Negative (NEGATIVE) 09/03/19 19:58 Urine Glucose (UA) Negative (NEGATIVE) 09/03/19 19:58 Urine Ketones Trace (NEGATIVE) H 09/03/19 19:58 Urine Blood Negative (NEGATIVE) 09/03/19 19:58 Urine Nitrite Negative (NEGATIVE) 09/03/19 19:58 Urine Bilirubin Negative (NEGATIVE) 09/03/19 19:58 Urine Urobilinogen 0.2 mg/dL (0.2-1.0) 09/03/19 19:58 Ur Leukocyte Esterase Negative (NEGATIVE) 09/03/19 19:58 Labs reviewed. Assessment: 09/04/19 10:45 Alert and oriented x3, in no acute distress. Full ROM, ambulating on unit without any assistance. Mild withdrawal symptoms. Plan: Continue detox protocol. COVID 19 testing pending.
--- NOTE | 2019-09-04 11:46 | CONSULT ---
[facility] Psychiatric Consult - Data Date of interview: 09/04/19 Admission source: [facility] Identifying data: Patient is a 39 year old single male, without children, unemployed ( was working at [employer] but currently not working due to COVID-19), and currently homeless. This is one of multiple admissions for patient. Patient admitted to for opioid and cannabis dependence. Substance Abuse History: Smoking Cessation. Smoking history: Current every day smoker. Have you smoked in the past 12 months: Yes. Aproximately how many cigarettes per day: 5. Cigars Per Day: 0. Hx Chewing Tobacco Use: No. Initiated information on smoking cessation: Yes. 'Breaking Loose' booklet given: 09/03/19. - Substance & Tx. History. Hx Alcohol Use: No. Hx Substance Use: Yes. Substance Use Type: Heroin. Hx Substance Use Treatment: Yes ([facility] 05/25/19 to 05/30/19). - Substances abused. Heroin. Substance route: Inhalation. Frequency: Daily. Amount used: 10 to 15 bags. Age of first use: 36. Date of last use: 09/02/19. Marijuana/Hashish. Frequency: 3-6 times per week. Amount used: 10$. Age of first use: 16. Date of last use: 09/01/19 Medical History: Right 5th digit fracture, s/p repair Psychiatric History: Mr. Pizano denies history of psychiatric hospitalization, and suicide attempt. All of patient's psychiatric treatment have occured in detox/rehab facilities. Patient most recently received psychiatric treatment while at [facility] in April 2019 and was prescribed Prozac 60mg daily. Diagnosis of MDD. Patient has not taken medications in several months and is totally lost in follow up care. No report history of prior suicide attempt. Patient requesting to resume prozac and is c/o difficulty sleeping. Physical/Sexual Abuse/Trauma History: denies. Mental Status Exam - Mental Status Exam Alert and Oriented to: Time, Place, Person Cognitive Function: Good Patient Appearance: Well Groomed Mood: Hopeful Affect: Appropriate Patient Behavior: Cooperative Speech Pattern: Appropriate Voice Loudness: Normal Thought Process: Intact, Goal Oriented Thought Disorder: Not Present Hallucinations: Denies Suicidal Ideation: Denies Homicidal Ideation: Denies Insight/Judgement: Poor Sleep: Poorly Appetite: Fair Muscle strength/Tone: Normal Gait/Station: Normal Psychiatric Findings - Problem List ([place] 1, 2,3) (1) Nicotine dependence Status: Chronic Qualifiers: Nicotine product type: cigarettes Substance use status: in withdrawal Qualified Code(s): F17.213 - Nicotine dependence, cigarettes, with withdrawal Comment: . (2) Opioid dependence with withdrawal Status: Acute Comment: . (3) Substance-induced sleep disorder Status: Acute (4) Cannabis dependence, uncomplicated Status: Chronic Comment: . (5) Depressive disorder Status: Chronic Comment: . - Initial Treatment Plan Initial Treatment Plan: Psychoeducation provided. Detoxification in progress. Will order Prozac 20mg + Trazodone 50mg HS. Benefits and side effects discussed. Verbal consent given.
[2019-09-04] MEDS: traZODone HCL 50 MG TABLET (FP) PO SCH (21:43)
[2019-09-04] MEDS: MELATONIN 5 MG TABLETS PO SCH (21:43)
[2019-09-04] MEDS: THIAMINE HCL 100 MG TABLET (FP) PO SCH (21:43)
[2019-09-05] MEDS: hydrOXYzine PAMOATE 25 MG CAPSULE (FP) PO SCH ×5 (05:56→21:31)
[2019-09-05] MEDS: METHOCARBAMOL 500 MG TABLET PO PRN ×3 (05:56→21:30)
[2019-09-05] MEDS: diazePAM 5 MG TABLET PO PRN ×4 (05:56→21:30)
[2019-09-05] MEDS: NICOTINE POLACRILEX 2 MG GUM BUC PRN ×5 (07:18→21:33)
--- NOTE | 2019-09-05 09:36 | PN ---
S COWS - Scale Resting Pulse: 0= [place] 80 or Below Sweatin=Flushed/Facial Moisture Restless Observation: 0= Sits Still Pupil Size: 0= Normal to Room Light Bone or Joint Aches: 4=Acute Joint/Muscle Pain Runny Nose/ Eye Tearin= Runny Nose/Eyes GI Upset > 30mins: 1= Stomach Cramp Tremor Observation of Outstretched Hands: 0= None Yawning Observation: 0= None Anxiety or Irritability: 2=Irritable/Anxious Goose Flesh Skin: 0=Smooth Skin COWS Score: 11 S Progress Note (SOAP) Subjective: c/o "1 feel pretty bad, crappy"- sweats/chills,stomach cramps,muscle aches, runny nose. Objective: 09/05/19 09:33 Vital Signs 09/05/19 09/05/19 09/05/19 03:30 05:00 06:20 Temperature 97.8 F Pulse Rate 63 Respiratory 18 18 Rate Blood Pressure 97/64 O2 Sat by Pulse 95 Oximetry (%) 09/05/19 08:33 Temperature 98.2 F Pulse Rate 62 Respiratory 17 Rate Blood Pressure 103/57 L O2 Sat by Pulse Oximetry (%) Laboratory Tests 09/03/19 09/04/19 09/04/19 19:58 07:10 07:10 WBC 8.2 RBC 4.83 Hgb 14.8 Hct 44.6 MCV 92.2 MCH 30.7 MCHC 33.3 RDW 13.7 Plt Count 289 MPV 9.0 Sodium Potassium Chloride Carbon Dioxide Anion Gap BUN Creatinine Est GFR (CKD-EPI)AfAm Est GFR (CKD-EPI)NonAf Random Glucose Calcium Total Bilirubin AST ALT Alkaline Phosphatase Total Protein Albumin Urine Color Yellow Urine Appearance Clear Urine pH 5.0 D Ur Specific [place] 1.027 Urine Protein Negative Urine Glucose (UA) Negative Urine Ketones Trace H Urine Blood Negative Urine Nitrite Negative Urine Bilirubin Negative Urine Urobilinogen 0.2 Ur Leukocyte Esterase Negative Syphilis Serology Non-reactive 09/04/19 07:10 WBC RBC Hgb Hct MCV MCH MCHC RDW Plt Count MPV Sodium 142 Potassium 4.1 Chloride 105 Carbon Dioxide 34 H Anion Gap 3 L BUN 16.2 Creatinine 1.1 Est GFR (CKD-EPI)AfAm 98.18 Est GFR (CKD-EPI)NonAf 84.71 Random Glucose 86 Calcium 8.9 Total Bilirubin 0.5 AST 16 ALT 26 Alkaline Phosphatase 61 Total Protein 6.7 Albumin 4.1 Urine Color Urine Appearance Urine pH Ur Specific [place] Urine Protein Urine Glucose (UA) Urine Ketones Urine Blood Urine Nitrite Urine Bilirubin Urine Urobilinogen Ur Leukocyte Esterase Syphilis Serology labs noted Covid-19 result pending Assessment: 09/05/19 09:34 withdrawal sx Awaits Covid-19 results Plan: cont detox per protocol-Methadone taper regimen. d/w pt to increase po fluids Robaxin prn as directed for muscle aches Actifed prn for nasal sx f/u with Covid- 19 result per protocol.
[2019-09-05] MEDS ORDERED: METHADONE HCL 10 MG TABLET (FOR DETOX USE ONLY) PO ONE (10:00)
[2019-09-05] MEDS: PRENATAL VITAMINS W/ FOLIC ACID TABLET (FP) PO SCH (10:06)
[2019-09-05] MEDS: FLUoxetine HCL 20 MG CAPSULE PO SCH (10:06)
[2019-09-05] MEDS: NICOTINE 21 MG/24 HOURS TOPICAL PATCH TD SCH (10:07)
[2019-09-05] MEDS: IBUPROFEN 400 MG TABLET (FP) PO PRN (10:10)
[2019-09-05] MEDS: traZODone HCL 50 MG TABLET (FP) PO SCH (21:30)
[2019-09-05] MEDS: THIAMINE HCL 100 MG TABLET (FP) PO SCH (21:30)
[2019-09-05] MEDS: MELATONIN 5 MG TABLETS PO SCH (21:31)
[2019-09-06] MEDS: hydrOXYzine PAMOATE 25 MG CAPSULE (FP) PO SCH ×5 (06:23→22:38)
[2019-09-06] MEDS: METHOCARBAMOL 500 MG TABLET PO PRN ×3 (06:26→22:38)
[2019-09-06] MEDS ORDERED: METHADONE HCL 5 MG TABLET (FOR DETOX USE ONLY) ONE (08:49)
[2019-09-06] MEDS ORDERED: METHADONE HCL 10 MG TABLET (FOR DETOX USE ONLY) ONE (08:49)
[2019-09-06] MEDS: FLUoxetine HCL 20 MG CAPSULE PO SCH (09:15)
[2019-09-06] MEDS: NICOTINE 21 MG/24 HOURS TOPICAL PATCH TD SCH (09:15)
[2019-09-06] MEDS: PRENATAL VITAMINS W/ FOLIC ACID TABLET (FP) PO SCH (09:15)
[2019-09-06] MEDS: diazePAM 5 MG TABLET PO PRN ×4 (09:19→22:38)
[2019-09-06] MEDS: NICOTINE POLACRILEX 2 MG GUM BUC PRN ×4 (09:21→18:59)
[2019-09-06] MEDS ORDERED: METHADONE (DETOX) 10 MG, METHADONE (DETOX) 5 MG PO ONE (10:00)
--- NOTE | 2019-09-06 12:08 | PN ---
BHS COWS - Scale Resting Pulse: 0= [place] 80 or Below Sweatin= Chills/Flushing Restless Observation: 3= Extraneous Movement Pupil Size: 0= Normal to Room Light Bone or Joint Aches: 2= Severe Diffuse Aches Runny Nose/ Eye Tearin= None GI Upset > 30mins: 0= None Tremor Observation of Outstretched Hands: 1= Tremor [place], Not Seen Yawning Observation: 1= 1-2x During Session Anxiety or Irritability: 2=Irritable/Anxious Goose Flesh Skin: 0=Smooth Skin COWS Score: 10 BHS Progress Note (SOAP) Subjective: Anxiety, sweats, irritability/restlessness. Objective: 09/06/19 12:07 Vital Signs - 24 hr 09/05/19 09/05/19 09/05/19 12:56 14:54 16:35 Temperature 97.4 F L 97.3 F L Pulse Rate 85 58 L Respiratory 18 18 Rate Blood Pressure 122/72 111/69 O2 Sat by Pulse 96 95 Oximetry (%) 09/05/19 09/06/19 09/06/19 20:15 03:30 06:16 Temperature 97.7 F 97.8 F Pulse Rate 65 58 L Respiratory 20 18 18 Rate Blood Pressure 104/72 100/62 O2 Sat by Pulse 97 97 Oximetry (%) Laboratory Tests 09/03/19 09/04/19 09/04/19 19:58 07:10 07:10 WBC 8.2 RBC 4.83 Hgb 14.8 Hct 44.6 MCV 92.2 MCH 30.7 MCHC 33.3 RDW 13.7 Plt Count 289 MPV 9.0 Sodium Potassium Chloride Carbon Dioxide Anion Gap BUN Creatinine Est GFR (CKD-EPI)AfAm Est GFR (CKD-EPI)NonAf Random Glucose Calcium Total Bilirubin AST ALT Alkaline Phosphatase Total Protein Albumin Urine Color Yellow Urine Appearance Clear Urine pH 5.0 D Ur Specific [place] 1.027 Urine Protein Negative Urine Glucose (UA) Negative Urine Ketones Trace H Urine Blood Negative Urine Nitrite Negative Urine Bilirubin Negative Urine Urobilinogen 0.2 Ur Leukocyte Esterase Negative Syphilis Serology Non-reactive 09/04/19 07:10 WBC RBC Hgb Hct MCV MCH MCHC RDW Plt Count MPV Sodium 142 Potassium 4.1 Chloride 105 Carbon Dioxide 34 H Anion Gap 3 L BUN 16.2 Creatinine 1.1 Est GFR (CKD-EPI)AfAm 98.18 Est GFR (CKD-EPI)NonAf 84.71 Random Glucose 86 Calcium 8.9 Total Bilirubin 0.5 AST 16 ALT 26 Alkaline Phosphatase 61 Total Protein 6.7 Albumin 4.1 Urine Color Urine Appearance Urine pH Ur Specific [place] Urine Protein Urine Glucose (UA) Urine Ketones Urine Blood Urine Nitrite Urine Bilirubin Urine Urobilinogen Ur Leukocyte Esterase Syphilis Serology Assessment: 09/06/19 12:07 withdrawal sx Plan: cont detox increase po fluids covid-19 test result pending
--- NOTE | 2019-09-06 18:07 | PN ---
S Progress Note Note: per nursing , pt 's Valium prn completed , pt requesting to continue P : PRN Valium 5 mg q 4 hrs added until 09/06 . Medical staff to review in the a.m.
[2019-09-06] MEDS: traZODone HCL 50 MG TABLET (FP) PO SCH (22:38)
[2019-09-06] MEDS: MELATONIN 5 MG TABLETS PO SCH (22:38)
[2019-09-06] MEDS: THIAMINE HCL 100 MG TABLET (FP) PO SCH (22:38)
[2019-09-07] MEDS: METHOCARBAMOL 500 MG TABLET PO PRN ×3 (07:18→21:17)
[2019-09-07] MEDS: hydrOXYzine PAMOATE 25 MG CAPSULE (FP) PO SCH ×5 (07:18→21:17)
[2019-09-07] MEDS: diazePAM 5 MG TABLET PO PRN (07:18)
--- NOTE | 2019-09-07 09:54 | PN ---
BHS COWS - Scale Resting Pulse: 0= [place] 80 or Below Sweatin= Chills/Flushing Restless Observation: 3= Extraneous Movement Pupil Size: 0= Normal to Room Light Bone or Joint Aches: 1= Mild Discomfort Runny Nose/ Eye Tearin= None GI Upset > 30mins: 0= None Tremor Observation of Outstretched Hands: 1= Tremor [place], Not Seen Yawning Observation: 0= None Anxiety or Irritability: 2=Irritable/Anxious Goose Flesh Skin: 0=Smooth Skin COWS Score: 8 BHS Progress Note (SOAP) Subjective: Anxiety, sweats. Methadone 10 mg po today and 5 mg tomorrow. Scheduled to D/C tomorrow and wants to go to Rehab after detox. Pt met with his counselor today to arrange for CD aftercare. Objective: 09/07/19 11:25 Vital Signs 09/07/19 09/07/19 09/07/19 03:30 05:37 09:40 Temperature 98 F 97.5 F L Pulse Rate 61 84 Respiratory 18 18 18 Rate Blood Pressure 109/60 105/66 O2 Sat by Pulse 96 98 Oximetry (%) Laboratory Tests 09/03/19 09/03/19 09/04/19 16:55 19:58 07:10 WBC RBC Hgb Hct MCV MCH MCHC RDW Plt Count MPV Sodium Potassium Chloride Carbon Dioxide Anion Gap BUN Creatinine Est GFR (CKD-EPI)AfAm Est GFR (CKD-EPI)NonAf Random Glucose Calcium Total Bilirubin AST ALT Alkaline Phosphatase Total Protein Albumin Urine Color Yellow Urine Appearance Clear Urine pH 5.0 D Ur Specific [place] 1.027 Urine Protein Negative Urine Glucose (UA) Negative Urine Ketones Trace H Urine Blood Negative Urine Nitrite Negative Urine Bilirubin Negative Urine Urobilinogen 0.2 Ur Leukocyte Esterase Negative Syphilis Serology Non-reactive COVID-19 ([facility]) Not detected 09/04/19 09/04/19 07:10 07:10 WBC 8.2 RBC 4.83 Hgb 14.8 Hct 44.6 MCV 92.2 MCH 30.7 MCHC 33.3 RDW 13.7 Plt Count 289 MPV 9.0 Sodium 142 Potassium 4.1 Chloride 105 Carbon Dioxide 34 H Anion Gap 3 L BUN 16.2 Creatinine 1.1 Est GFR (CKD-EPI)AfAm 98.18 Est GFR (CKD-EPI)NonAf 84.71 Random Glucose 86 Calcium 8.9 Total Bilirubin 0.5 AST 16 ALT 26 Alkaline Phosphatase 61 Total Protein 6.7 Albumin 4.1 Urine Color Urine Appearance Urine pH Ur Specific [place] Urine Protein Urine Glucose (UA) Urine Ketones Urine Blood Urine Nitrite Urine Bilirubin Urine Urobilinogen Ur Leukocyte Esterase Syphilis Serology COVID-19 ([facility]) covid-19 not detected Assessment: 09/07/19 11:25 withdrawal sx Plan: continue detox increase po fluids maintain safety
[2019-09-07] MEDS ORDERED: METHADONE HCL 10 MG TABLET (FOR DETOX USE ONLY) PO ONE (10:00)
[2019-09-07] MEDS: PRENATAL VITAMINS W/ FOLIC ACID TABLET (FP) PO SCH (10:02)
[2019-09-07] MEDS: FLUoxetine HCL 20 MG CAPSULE PO SCH (10:02)
[2019-09-07] MEDS: NICOTINE 21 MG/24 HOURS TOPICAL PATCH TD SCH (10:03)
[2019-09-07] MEDS: IBUPROFEN 400 MG TABLET (FP) PO PRN (14:27)
[2019-09-07] MEDS: NICOTINE POLACRILEX 2 MG GUM BUC PRN ×3 (14:28→21:18)
[2019-09-07] MEDS: traZODone HCL 50 MG TABLET (FP) PO SCH (21:17)
[2019-09-07] MEDS: MELATONIN 5 MG TABLETS PO SCH (21:17)
[2019-09-07] MEDS: THIAMINE HCL 100 MG TABLET (FP) PO SCH (21:17)
[2019-09-08] MEDS ORDERED: METHADONE HCL 5 MG TABLET (FOR DETOX USE ONLY) PO ONE (06:00)
[2019-09-08] MEDS: METHOCARBAMOL 500 MG TABLET PO PRN (06:26)
[2019-09-08] MEDS: IBUPROFEN 400 MG TABLET (FP) PO PRN (06:26)
[2019-09-08] MEDS: hydrOXYzine PAMOATE 25 MG CAPSULE (FP) PO SCH (06:30)
[2019-09-08 06:45] VITALS: BP 106/78; PULSE 73; TEMP 97.1
== END 2019-09-08 09:40 | disposition home or self-care (01) | DRG 773 ==
LOC: YASAS 14:52 → Y5N DETOX 16:45
PROVIDERS: ADMIT Allergy & Immunology; ATTEND Allergy & Immunology
PROC: HZ2ZZZZ Detoxification Services for Substance Abuse Treatment (ICD-10-PCS; principal; 2019-09-03)
DX: F11.23 Opioid dependence with withdrawal (principal); F12.20 Cannabis dependence, uncomplicated; F17.210 Nicotine dependence, cigarettes, uncomplicated; F19.282 Other psychoactive substance dependence with psychoactive substance-induced sleep disorder; F32.9 Major depressive disorder, single episode, unspecified; Z56.0 Unemployment, unspecified; Z59.0 Homelessness
CPT/HCPCS: 36415; 80053; 81003; 85027; 86780; U0003

== ENCOUNTER 2022-09-22 12:06 | Inpatient (IN) | payer OTHER ==
[2022-09-22 13:23] VITALS: BMI 20.7
[2022-09-22] MEDS ORDERED: LOPERAMIDE HCL 2 MG CAPSULE PO PRN (17:31)
[2022-09-22] MEDS ORDERED: NALOXONE HCL (KLOXXADO) 8 MG SPRAY NS PRN (17:31)
[2022-09-22] MEDS ORDERED: BENZOCAINE/MENTHOL (CHLORASEPTIC ) LOZENGE MM PRN (17:31)
[2022-09-22] MEDS ORDERED: NICOTINE 10 MG CARTRIDGE (INHALER) IH PRN (17:31)
[2022-09-22] MEDS ORDERED: ACETAMINOPHEN 325 MG TABLET (FP) PO PRN (17:31)
[2022-09-22] MEDS ORDERED: IBUPROFEN 600 MG TABLET (FP) PO PRN (17:31)
[2022-09-22] MEDS ORDERED: BENZONATATE 200 MG CAPSULE PO PRN (17:31)
[2022-09-22] MEDS ORDERED: guaiFENesin 600 MG TABLET.ER (FP) PO PRN (17:31)
[2022-09-22] MEDS ORDERED: MAG HYDROX/AL HYDROX/SIMETH 30 ML UNIT-DOSE CUP PO PRN (17:31)
[2022-09-22] MEDS ORDERED: POLYETHYLENE GLYCOL (HEALTHYLAX) 3350 17 GM PACKET PO PRN (17:31)
[2022-09-22] MEDS ORDERED: IBUPROFEN 400 MG TABLET (FP) PO PRN (17:31)
[2022-09-22] MEDS ORDERED: MAGNESIUM HYDROX 2400MG/30ML ORAL SUSPENSION 30 ML CUP PO PRN (17:31)
[2022-09-22] MEDS ORDERED: NALOXONE HCL 0.4 MG/ML VIAL IM PRN (17:31)
[2022-09-22] MEDS ORDERED: DICYCLOMINE HCL 10 MG CAPSULE PO PRN (17:31)
[2022-09-22] MEDS ORDERED: ONDANSETRON *ODT* 4 MG TABLET SL PRN (17:31)
[2022-09-22] MEDS ORDERED: BISMUTH SUBSALICYLATE 524 MG/30 ML PO PRN (17:31)
[2022-09-22] MEDS ORDERED: diazePAM 5 MG TABLET PO ONE (17:45)
[2022-09-22] MEDS: NICOTINE POLACRILEX 4 MG GUM BUC PRN (18:41)
[2022-09-22] MEDS ORDERED: MELATONIN 5 MG TABLETS PO SCH (22:00)
[2022-09-22] MEDS: METHOCARBAMOL 500 MG TABLET PO PRN (22:17)
[2022-09-22] MEDS: hydrOXYzine PAMOATE 25 MG CAPSULE (FP) PO PRN (22:17)
[2022-09-22] MEDS: diazePAM 5 MG TABLET PO SCH (22:18)
[2022-09-22] MEDS: THIAMINE HCL 100 MG TABLET (FP) PO SCH (22:18)
[2022-09-23] MEDS: diazePAM 5 MG TABLET PO SCH ×4 (05:46→22:13)
[2022-09-23] MEDS: hydrOXYzine PAMOATE 25 MG CAPSULE (FP) PO PRN ×2 (05:48→22:12)
[2022-09-23] MEDS ORDERED: methaDONE HCL 40 MG DISPERSABLE TABLET PO SCH (07:30)
[2022-09-23] MEDS: NICOTINE POLACRILEX 4 MG GUM BUC PRN ×4 (08:33→22:15)
[2022-09-23] MEDS: PRENATAL VITAMINS W/ FOLIC ACID TABLET (FP) PO SCH (10:05)
[2022-09-23] MEDS: diazePAM 5 MG TABLET PO PRN ×2 (12:54→20:16)
[2022-09-23 16:01] LABS: POTASSIUM 4.1 mmol/L (3.5-5.1)
[2022-09-23 16:05] LABS: HEMOGLOBIN 13.9 GM/dL (11.7-16.9); MCH 31.2 pg (25.7-33.7); MCHC 33.9 g/dl (32.0-35.9); MEAN PLT VOLUME 8.7 fl (7.5-11.1); PLATELET COUNT 226 10^3/uL (134-434); RBC 4.46 M/mm3 (4.00-5.60); RDW 13.6 % (11.9-15.9); WHITE BLOOD COUNT 5.5 K/mm3 (4.0-10.0)
[2022-09-23 16:14] LABS: CALCIUM 9.3 mg/dL (8.5-10.1)
[2022-09-23 16:15] LABS: ALBUMIN 3.6 g/dl (3.4-5.0)
[2022-09-23 16:19] LABS: TOT PROT 6.1 g/dl (6.4-8.2)
[2022-09-23 16:21] LABS: BILIRUBIN,TOTAL 0.5 mg/dL (0.2-1)
[2022-09-23] MEDS: THIAMINE HCL 100 MG TABLET (FP) PO SCH (22:12)
[2022-09-23] MEDS: METHOCARBAMOL 500 MG TABLET PO PRN (22:12)
[2022-09-23] MEDS: traZODone HCL 50 MG TABLET (FP) PO PRN (22:12)
[2022-09-24] MEDS: diazePAM 5 MG TABLET PO SCH ×3 (05:40→21:59)
[2022-09-24] MEDS: NICOTINE POLACRILEX 4 MG GUM BUC PRN ×4 (08:33→22:02)
[2022-09-24] MEDS: PRENATAL VITAMINS W/ FOLIC ACID TABLET (FP) PO SCH (10:20)
[2022-09-24] MEDS: diazePAM 5 MG TABLET PO PRN ×2 (10:21→19:43)
[2022-09-24] MEDS: THIAMINE HCL 100 MG TABLET (FP) PO SCH (21:57)
[2022-09-24] MEDS: METHOCARBAMOL 500 MG TABLET PO PRN (21:58)
[2022-09-24] MEDS: traZODone HCL 50 MG TABLET (FP) PO PRN (21:58)
[2022-09-24] MEDS: hydrOXYzine PAMOATE 25 MG CAPSULE (FP) PO PRN (21:58)
[2022-09-25] MEDS: diazePAM 5 MG TABLET PO SCH ×2 (05:52→17:39)
[2022-09-25] MEDS: NICOTINE POLACRILEX 4 MG GUM BUC PRN ×4 (05:56→21:31)
[2022-09-25] MEDS: PRENATAL VITAMINS W/ FOLIC ACID TABLET (FP) PO SCH (10:05)
[2022-09-25] MEDS: diazePAM 5 MG TABLET PO PRN (10:07)
[2022-09-25] MEDS: hydrOXYzine PAMOATE 25 MG CAPSULE (FP) PO PRN (22:24)
[2022-09-25] MEDS: METHOCARBAMOL 500 MG TABLET PO PRN (22:24)
[2022-09-25] MEDS: THIAMINE HCL 100 MG TABLET (FP) PO SCH (22:24)
[2022-09-25] MEDS: traZODone HCL 50 MG TABLET (FP) PO PRN (22:25)
[2022-09-26] MEDS ORDERED: diazePAM 5 MG TABLET PO ONE (06:00)
[2022-09-26] MEDS: NICOTINE POLACRILEX 4 MG GUM BUC PRN (06:21)
[2022-09-26 06:34] VITALS: RESP 16
[2022-09-26] MEDS: PRENATAL VITAMINS W/ FOLIC ACID TABLET (FP) PO SCH (10:22)
[2022-09-26] MEDS: hydrOXYzine PAMOATE 25 MG CAPSULE (FP) PO PRN (10:23)
[2022-09-26] MEDS: METHOCARBAMOL 500 MG TABLET PO PRN (10:24)
[2022-09-26 14:08] VITALS: BP 104/65; PULSE 78; TEMP 97.7
== END 2022-09-26 13:13 | disposition other institution (70) | DRG 773 ==
LOC: YASAS 12:06 → Y3N 17:22
PROVIDERS: ADMIT Allergy & Immunology; ATTEND Surgery
PROC: HZ2ZZZZ Detoxification Services for Substance Abuse Treatment (ICD-10-PCS; principal; 2022-09-22)
DX: F10.230 Alcohol dependence with withdrawal, uncomplicated (principal); F11.20 Opioid dependence, uncomplicated; F14.20 Cocaine dependence, uncomplicated; F17.213 Nicotine dependence, cigarettes, with withdrawal; F19.282 Other psychoactive substance dependence with psychoactive substance-induced sleep disorder; F19.24 Other psychoactive substance dependence with psychoactive substance-induced mood disorder; Z86.69 Personal history of other diseases of the nervous system and sense organs; Z56.0 Unemployment, unspecified; Z59.00 Homelessness unspecified
CPT/HCPCS: 36415; 80053; 85027; 86780; 87635

== ENCOUNTER 2022-09-26 13:31 | Inpatient (IN) | payer OTHER ==
[2022-09-26] MEDS ORDERED: BENZOCAINE/MENTHOL (CHLORASEPTIC ) LOZENGE MM PRN (13:53)
[2022-09-26] MEDS ORDERED: POLYETHYLENE GLYCOL (HEALTHYLAX) 3350 17 GM PACKET PO PRN (13:53)
[2022-09-26] MEDS ORDERED: ACETAMINOPHEN 325 MG TABLET (FP) PO PRN (13:53)
[2022-09-26] MEDS ORDERED: NALOXONE HCL (KLOXXADO) 8 MG SPRAY NS PRN (13:53)
[2022-09-26] MEDS ORDERED: IBUPROFEN 400 MG TABLET (FP) PO PRN (13:53)
[2022-09-26] MEDS ORDERED: MAGNESIUM HYDROX 2400MG/30ML ORAL SUSPENSION 30 ML CUP PO PRN (13:53)
[2022-09-26] MEDS ORDERED: IBUPROFEN 600 MG TABLET (FP) PO PRN (13:53)
[2022-09-26] MEDS ORDERED: NALOXONE HCL 0.4 MG/ML VIAL IVPUSH PRN (13:53)
[2022-09-26] MEDS ORDERED: NICOTINE 10 MG CARTRIDGE (INHALER) IH PRN (13:53)
[2022-09-26] MEDS ORDERED: guaiFENesin 600 MG TABLET.ER (FP) PO PRN (13:53)
[2022-09-26] MEDS ORDERED: COLLOIDAL OATMEAL 1 BAR EACH TP PRN (13:53)
[2022-09-26] MEDS ORDERED: BENZONATATE 200 MG CAPSULE PO PRN (13:53)
[2022-09-26] MEDS ORDERED: AMMONIUM LACTATE 12% LOTION 225 GM BOTTLE TP PRN (13:53)
[2022-09-26] MEDS ORDERED: MAG HYDROX/AL HYDROX/SIMETH 30 ML UNIT-DOSE CUP PO PRN (13:53)
[2022-09-26] MEDS: NICOTINE POLACRILEX 4 MG GUM BUC PRN ×2 (14:43→17:29)
[2022-09-26] MEDS: THIAMINE HCL 100 MG TABLET (FP) PO SCH (21:24)
[2022-09-26] MEDS: traZODone HCL 50 MG TABLET (FP) PO SCH (21:25)
[2022-09-26] MEDS: METHOCARBAMOL 500 MG TABLET PO PRN (21:25)
[2022-09-26] MEDS: MELATONIN 5 MG TABLETS PO SCH (21:25)
[2022-09-26] MEDS: hydrOXYzine PAMOATE 25 MG CAPSULE (FP) PO PRN (21:25)
[2022-09-27] MEDS: NICOTINE POLACRILEX 4 MG GUM BUC PRN ×5 (06:41→19:45)
[2022-09-27] MEDS: METHOCARBAMOL 500 MG TABLET PO PRN ×3 (06:42→21:27)
[2022-09-27] MEDS: hydrOXYzine PAMOATE 25 MG CAPSULE (FP) PO PRN ×2 (06:42→21:26)
[2022-09-27] MEDS ORDERED: methaDONE HCL 10 MG TABLET PO SCH (10:00)
[2022-09-27] MEDS: PRENATAL VITAMINS W/ FOLIC ACID TABLET (FP) PO SCH (10:06)
[2022-09-27] MEDS: NICOTINE 14 MG/24 HOURS TOPICAL PATCH TD PRN (10:07)
[2022-09-27] MEDS: traZODone HCL 50 MG TABLET (FP) PO SCH (21:26)
[2022-09-27] MEDS: THIAMINE HCL 100 MG TABLET (FP) PO SCH (21:26)
[2022-09-27] MEDS: MELATONIN 5 MG TABLETS PO SCH (21:27)
[2022-09-28] MEDS: hydrOXYzine PAMOATE 25 MG CAPSULE (FP) PO PRN ×3 (06:14→21:21)
[2022-09-28] MEDS: METHOCARBAMOL 500 MG TABLET PO PRN ×2 (06:14→15:47)
[2022-09-28] MEDS: NICOTINE POLACRILEX 4 MG GUM BUC PRN ×4 (06:14→21:23)
[2022-09-28] MEDS: PRENATAL VITAMINS W/ FOLIC ACID TABLET (FP) PO SCH (10:10)
[2022-09-28] MEDS: NICOTINE 14 MG/24 HOURS TOPICAL PATCH TD PRN (10:12)
[2022-09-28] MEDS: traZODone HCL 50 MG TABLET (FP) PO SCH (21:21)
[2022-09-28] MEDS: MELATONIN 5 MG TABLETS PO SCH (21:21)
[2022-09-28] MEDS: THIAMINE HCL 100 MG TABLET (FP) PO SCH (21:22)
[2022-09-29] MEDS: hydrOXYzine PAMOATE 25 MG CAPSULE (FP) PO PRN ×3 (06:05→21:08)
[2022-09-29] MEDS: METHOCARBAMOL 500 MG TABLET PO PRN ×3 (06:06→21:08)
[2022-09-29] MEDS: NICOTINE POLACRILEX 4 MG GUM BUC PRN ×4 (06:07→21:10)
[2022-09-29] MEDS: PRENATAL VITAMINS W/ FOLIC ACID TABLET (FP) PO SCH (09:34)
[2022-09-29] MEDS: NICOTINE 14 MG/24 HOURS TOPICAL PATCH TD PRN (09:34)
[2022-09-29] MEDS ORDERED: methaDONE HCL 10 MG TABLET PO ONE (10:00)
[2022-09-29] MEDS: THIAMINE HCL 100 MG TABLET (FP) PO SCH (21:08)
[2022-09-29] MEDS: LOPERAMIDE HCL 2 MG CAPSULE PO PRN (21:08)
[2022-09-29] MEDS: traZODone HCL 50 MG TABLET (FP) PO SCH (21:08)
[2022-09-29] MEDS: MELATONIN 5 MG TABLETS PO SCH (21:08)
[2022-09-30] MEDS ORDERED: methaDONE HCL 10 MG TABLET PO SCH (06:00)
[2022-09-30] MEDS: LOPERAMIDE HCL 2 MG CAPSULE PO PRN (06:17)
[2022-09-30] MEDS: NICOTINE POLACRILEX 4 MG GUM BUC PRN ×3 (06:23→21:34)
[2022-09-30] MEDS: PRENATAL VITAMINS W/ FOLIC ACID TABLET (FP) PO SCH (10:07)
[2022-09-30] MEDS: hydrOXYzine PAMOATE 25 MG CAPSULE (FP) PO PRN (10:08)
[2022-09-30] MEDS: METHOCARBAMOL 500 MG TABLET PO PRN (10:09)
[2022-09-30] MEDS ORDERED: BENZOCAINE 28 GM HEMORRHOIDAL OINTMENT RC PRN (15:49)
[2022-09-30] MEDS: THIAMINE HCL 100 MG TABLET (FP) PO SCH (21:30)
[2022-09-30] MEDS: traZODone HCL 50 MG TABLET (FP) PO SCH (21:30)
[2022-09-30] MEDS: MELATONIN 5 MG TABLETS PO SCH (21:31)
[2022-10-01] MEDS: hydrOXYzine PAMOATE 25 MG CAPSULE (FP) PO PRN ×3 (06:15→21:16)
[2022-10-01] MEDS: NICOTINE POLACRILEX 4 MG GUM BUC PRN ×5 (06:18→21:16)
[2022-10-01] MEDS: PRENATAL VITAMINS W/ FOLIC ACID TABLET (FP) PO SCH (10:16)
[2022-10-01] MEDS: METHOCARBAMOL 500 MG TABLET PO PRN ×2 (10:17→21:16)
[2022-10-01] MEDS: NICOTINE 14 MG/24 HOURS TOPICAL PATCH TD PRN (10:19)
[2022-10-01 15:05] LABS: BASO % 0.8 % (0-2.0); EOS % 3.3 % (0-4.5); HEMOGLOBIN 14.2 GM/dL (11.7-16.9); LYMPH % 26.4 % (8-40); MCH 31.2 pg (25.7-33.7); MCHC 33.7 g/dl (32.0-35.9); MEAN CELL VOLUME 92.6 fl (80-96); MEAN PLT VOLUME 9.3 fl (7.5-11.1); MONO % 12.7 % (3.8-10.2); NEUT % 56.8 % (42.8-82.8); PLATELET COUNT 240 10^3/uL (134-434); RBC 4.53 M/mm3 (4.00-5.60); WHITE BLOOD COUNT 6.3 K/mm3 (4.0-10.0)
[2022-10-01 15:21] LABS: POTASSIUM 4.6 mmol/L (3.5-5.1)
[2022-10-01 15:27] LABS: ALBUMIN 3.9 g/dl (3.4-5.0); CALCIUM 9.2 mg/dL (8.5-10.1)
[2022-10-01 15:31] LABS: BILIRUBIN,TOTAL 0.6 mg/dL (0.2-1); TOT PROT 6.7 g/dl (6.4-8.2)
[2022-10-01 15:43] LABS: BLOOD UREA NITROGEN 17.8 mg/dL (7-18)
[2022-10-01] MEDS: MELATONIN 5 MG TABLETS PO SCH (21:16)
[2022-10-01] MEDS: THIAMINE HCL 100 MG TABLET (FP) PO SCH (21:16)
[2022-10-01] MEDS: traZODone HCL 50 MG TABLET (FP) PO SCH (21:16)
[2022-10-02] MEDS: hydrOXYzine PAMOATE 25 MG CAPSULE (FP) PO PRN ×2 (05:58→21:09)
[2022-10-02] MEDS: NICOTINE POLACRILEX 4 MG GUM BUC PRN ×4 (06:02→20:34)
[2022-10-02] MEDS: NICOTINE 14 MG/24 HOURS TOPICAL PATCH TD PRN (09:01)
[2022-10-02] MEDS: PRENATAL VITAMINS W/ FOLIC ACID TABLET (FP) PO SCH (09:02)
[2022-10-02] MEDS: THIAMINE HCL 100 MG TABLET (FP) PO SCH (21:08)
[2022-10-02] MEDS: traZODone HCL 50 MG TABLET (FP) PO SCH (21:08)
[2022-10-02] MEDS: MELATONIN 5 MG TABLETS PO SCH (21:09)
[2022-10-03] MEDS: hydrOXYzine PAMOATE 25 MG CAPSULE (FP) PO PRN ×3 (06:35→21:06)
[2022-10-03] MEDS: PRENATAL VITAMINS W/ FOLIC ACID TABLET (FP) PO SCH (09:38)
[2022-10-03] MEDS: NICOTINE POLACRILEX 4 MG GUM BUC PRN ×5 (09:39→21:08)
[2022-10-03] MEDS: NICOTINE 14 MG/24 HOURS TOPICAL PATCH TD PRN (09:39)
[2022-10-03] MEDS: MELATONIN 5 MG TABLETS PO SCH (21:06)
[2022-10-03] MEDS: traZODone HCL 50 MG TABLET (FP) PO SCH (21:06)
[2022-10-03] MEDS: THIAMINE HCL 100 MG TABLET (FP) PO SCH (21:06)
[2022-10-04] MEDS: hydrOXYzine PAMOATE 25 MG CAPSULE (FP) PO PRN ×3 (06:05→21:38)
[2022-10-04] MEDS: NICOTINE POLACRILEX 4 MG GUM BUC PRN ×5 (06:08→21:39)
[2022-10-04] MEDS: PRENATAL VITAMINS W/ FOLIC ACID TABLET (FP) PO SCH (09:53)
[2022-10-04] MEDS: NICOTINE 14 MG/24 HOURS TOPICAL PATCH TD PRN (09:53)
[2022-10-04] MEDS: traZODone HCL 50 MG TABLET (FP) PO SCH (21:39)
[2022-10-04] MEDS: THIAMINE HCL 100 MG TABLET (FP) PO SCH (21:39)
[2022-10-04] MEDS: MELATONIN 5 MG TABLETS PO SCH (21:39)
[2022-10-05] MEDS: hydrOXYzine PAMOATE 25 MG CAPSULE (FP) PO PRN ×2 (06:14→15:47)
[2022-10-05] MEDS: NICOTINE POLACRILEX 4 MG GUM BUC PRN ×6 (06:14→21:09)
[2022-10-05] MEDS: PRENATAL VITAMINS W/ FOLIC ACID TABLET (FP) PO SCH (09:34)
[2022-10-05] MEDS: NICOTINE 14 MG/24 HOURS TOPICAL PATCH TD PRN (09:34)
[2022-10-05] MEDS ORDERED: methaDONE HCL 10 MG TABLET PO SCH (12:15)
[2022-10-05] MEDS: THIAMINE HCL 100 MG TABLET (FP) PO SCH (21:09)
[2022-10-05] MEDS: MELATONIN 5 MG TABLETS PO SCH (21:09)
[2022-10-05] MEDS: traZODone HCL 50 MG TABLET (FP) PO SCH (21:09)
[2022-10-06] MEDS: hydrOXYzine PAMOATE 25 MG CAPSULE (FP) PO PRN ×2 (06:16→18:17)
[2022-10-06] MEDS: NICOTINE POLACRILEX 4 MG GUM BUC PRN ×4 (06:18→21:05)
[2022-10-06] MEDS: PRENATAL VITAMINS W/ FOLIC ACID TABLET (FP) PO SCH (09:35)
[2022-10-06] MEDS: MELATONIN 5 MG TABLETS PO SCH (21:04)
[2022-10-06] MEDS: traZODone HCL 50 MG TABLET (FP) PO SCH (21:04)
[2022-10-06] MEDS: THIAMINE HCL 100 MG TABLET (FP) PO SCH (21:04)
[2022-10-07] MEDS: hydrOXYzine PAMOATE 25 MG CAPSULE (FP) PO PRN ×2 (06:25→21:14)
[2022-10-07] MEDS: PRENATAL VITAMINS W/ FOLIC ACID TABLET (FP) PO SCH (09:28)
[2022-10-07] MEDS: NICOTINE POLACRILEX 4 MG GUM BUC PRN ×2 (15:54→21:15)
[2022-10-07] MEDS: THIAMINE HCL 100 MG TABLET (FP) PO SCH (21:14)
[2022-10-07] MEDS: MELATONIN 5 MG TABLETS PO SCH (21:14)
[2022-10-07] MEDS: traZODone HCL 50 MG TABLET (FP) PO SCH (21:14)
[2022-10-08] MEDS: NICOTINE POLACRILEX 4 MG GUM BUC PRN ×4 (06:17→21:18)
[2022-10-08] MEDS: hydrOXYzine PAMOATE 25 MG CAPSULE (FP) PO PRN ×3 (06:17→21:16)
[2022-10-08] MEDS: PRENATAL VITAMINS W/ FOLIC ACID TABLET (FP) PO SCH (09:24)
[2022-10-08] MEDS ORDERED: METHOCARBAMOL 500 MG TABLET PO PRN (13:12)
[2022-10-08] MEDS: traZODone HCL 50 MG TABLET (FP) PO SCH (21:17)
[2022-10-08] MEDS: THIAMINE HCL 100 MG TABLET (FP) PO SCH (21:17)
[2022-10-08] MEDS: MELATONIN 5 MG TABLETS PO SCH (21:17)
[2022-10-09] MEDS: hydrOXYzine PAMOATE 25 MG CAPSULE (FP) PO PRN (06:21)
[2022-10-09] MEDS: NICOTINE POLACRILEX 4 MG GUM BUC PRN (06:23)
[2022-10-09 06:52] VITALS: RESP 16; TEMP 97.5
[2022-10-09] MEDS: PRENATAL VITAMINS W/ FOLIC ACID TABLET (FP) PO SCH (09:12)
[2022-10-09 10:09] VITALS: BP 113/70; PULSE 80
== END 2022-10-09 10:25 | disposition home or self-care (01) | DRG 772 ==
LOC: YASAS 13:31 → Y5N 13:32
PROVIDERS: ADMIT Allergy & Immunology; ATTEND Psychiatry & Neurology Pain Medicine
PROC: HZ42ZZZ Group Counseling for Substance Abuse Treatment, Cognitive-Behavioral (ICD-10-PCS; principal; 2022-09-26)
DX: F10.20 Alcohol dependence, uncomplicated (principal); F14.20 Cocaine dependence, uncomplicated; F11.20 Opioid dependence, uncomplicated; F17.210 Nicotine dependence, cigarettes, uncomplicated; F19.282 Other psychoactive substance dependence with psychoactive substance-induced sleep disorder; F19.24 Other psychoactive substance dependence with psychoactive substance-induced mood disorder; F43.10 Post-traumatic stress disorder, unspecified; F32.A Depression, unspecified; F41.9 Anxiety disorder, unspecified; F51.5 Nightmare disorder; G47.09 Other insomnia; R19.7 Diarrhea, unspecified; Z86.69 Personal history of other diseases of the nervous system and sense organs; Z59.00 Homelessness unspecified
CPT/HCPCS: 36415; 80053; 82140; 85025; 86803

== ENCOUNTER 2023-02-10 12:05 | Inpatient (IN) | payer OTHER ==
[2023-02-10 12:35] VITALS: BMI 21.2
[2023-02-10] MEDS ORDERED: ACETAMINOPHEN 325 MG TABLET (FP) PO PRN (13:34)
[2023-02-10] MEDS ORDERED: IBUPROFEN 400 MG TABLET (FP) PO PRN (13:34)
[2023-02-10] MEDS ORDERED: BENZONATATE 200 MG CAPSULE PO PRN (13:34)
[2023-02-10] MEDS ORDERED: NALOXONE HCL 0.4 MG/ML VIAL IM PRN (13:34)
[2023-02-10] MEDS ORDERED: MAG HYDROX/AL HYDROX/SIMETH 30 ML UNIT-DOSE CUP PO PRN (13:34)
[2023-02-10] MEDS ORDERED: MAGNESIUM HYDROX 2400MG/30ML ORAL SUSPENSION 30 ML CUP PO PRN (13:34)
[2023-02-10] MEDS ORDERED: IBUPROFEN 600 MG TABLET (FP) PO PRN (13:34)
[2023-02-10] MEDS ORDERED: guaiFENesin 600 MG TABLET.ER (FP) PO PRN (13:34)
[2023-02-10] MEDS ORDERED: BISMUTH SUBSALICYLATE 524 MG/30 ML PO PRN (13:34)
[2023-02-10] MEDS ORDERED: BENZOCAINE/MENTHOL (CHLORASEPTIC ) LOZENGE MM PRN (13:34)
[2023-02-10] MEDS ORDERED: NALOXONE HCL (KLOXXADO) 8 MG SPRAY NS PRN (13:34)
[2023-02-10] MEDS ORDERED: ONDANSETRON *ODT* 4 MG TABLET SL PRN (13:34)
[2023-02-10] MEDS ORDERED: POLYETHYLENE GLYCOL (HEALTHYLAX) 3350 17 GM PACKET PO PRN (13:34)
[2023-02-10] MEDS ORDERED: LOPERAMIDE HCL 2 MG CAPSULE PO PRN (13:34)
[2023-02-10] MEDS: MELATONIN 5 MG TABLETS PO SCH (22:19)
[2023-02-10] MEDS: THIAMINE HCL 100 MG TABLET (FP) PO SCH (22:20)
[2023-02-10] MEDS: hydrOXYzine PAMOATE 25 MG CAPSULE (FP) PO PRN (22:22)
[2023-02-11] MEDS ORDERED: methaDONE HCL 40 MG DISPERSABLE TABLET PO ONE (09:53)
[2023-02-11] MEDS ORDERED: chlordiazePOXIDE HCL 25 MG CAPSULE PO PRN (09:56)
[2023-02-11] MEDS: METHOCARBAMOL 500 MG TABLET PO PRN ×2 (10:18→22:24)
[2023-02-11] MEDS: chlordiazePOXIDE HCL 25 MG CAPSULE PO SCH ×3 (10:19→22:24)
[2023-02-11] MEDS: NICOTINE 14 MG/24 HOURS TOPICAL PATCH TD SCH (10:21)
[2023-02-11] MEDS: PRENATAL VITAMINS W/ FOLIC ACID TABLET (FP) PO SCH (10:22)
[2023-02-11] MEDS: hydrOXYzine PAMOATE 25 MG CAPSULE (FP) PO PRN ×2 (13:22→22:24)
[2023-02-11] MEDS: NICOTINE POLACRILEX 2 MG GUM BUC PRN ×3 (13:25→22:27)
[2023-02-11] MEDS: MELATONIN 5 MG TABLETS PO SCH (22:24)
[2023-02-11] MEDS: THIAMINE HCL 100 MG TABLET (FP) PO SCH (22:25)
[2023-02-12] MEDS: NICOTINE POLACRILEX 2 MG GUM BUC PRN ×7 (01:42→22:08)
[2023-02-12] MEDS ORDERED: chlordiazePOXIDE HCL 25 MG CAPSULE PO SCH (05:00)
[2023-02-12] MEDS: methaDONE HCL 40 MG DISPERSABLE TABLET PO SCH (05:10)
[2023-02-12] MEDS: hydrOXYzine PAMOATE 25 MG CAPSULE (FP) PO PRN ×2 (05:12→17:12)
[2023-02-12] MEDS: PRENATAL VITAMINS W/ FOLIC ACID TABLET (FP) PO SCH (10:01)
[2023-02-12] MEDS: NICOTINE 14 MG/24 HOURS TOPICAL PATCH TD SCH (10:03)
[2023-02-12] MEDS: METHOCARBAMOL 500 MG TABLET PO PRN ×2 (10:06→17:12)
[2023-02-12] MEDS: diazePAM 5 MG TABLET PO SCH ×3 (10:06→22:08)
[2023-02-12] MEDS: MELATONIN 5 MG TABLETS PO SCH (22:08)
[2023-02-12] MEDS: THIAMINE HCL 100 MG TABLET (FP) PO SCH (22:08)
[2023-02-12] MEDS: traZODone HCL 50 MG TABLET (FP) PO SCH (22:08)
[2023-02-13] MEDS ORDERED: chlordiazePOXIDE HCL 10 MG CAPSULE PO PRN
[2023-02-13] MEDS ORDERED: chlordiazePOXIDE HCL 10 MG CAPSULE PO SCH (05:00)
[2023-02-13] MEDS: methaDONE HCL 40 MG DISPERSABLE TABLET PO SCH (05:35)
[2023-02-13] MEDS: hydrOXYzine PAMOATE 25 MG CAPSULE (FP) PO PRN ×2 (05:35→14:16)
[2023-02-13] MEDS: diazePAM 5 MG TABLET PO SCH ×3 (05:35→21:47)
[2023-02-13] MEDS: NICOTINE POLACRILEX 2 MG GUM BUC PRN ×5 (05:36→19:19)
[2023-02-13] MEDS: METHOCARBAMOL 500 MG TABLET PO PRN ×3 (05:36→21:48)
[2023-02-13] MEDS: PRENATAL VITAMINS W/ FOLIC ACID TABLET (FP) PO SCH (09:43)
[2023-02-13] MEDS: NICOTINE 14 MG/24 HOURS TOPICAL PATCH TD SCH (09:43)
[2023-02-13] MEDS: traZODone HCL 50 MG TABLET (FP) PO SCH (21:47)
[2023-02-13] MEDS: MELATONIN 5 MG TABLETS PO SCH (21:47)
[2023-02-13] MEDS: THIAMINE HCL 100 MG TABLET (FP) PO SCH (21:47)
[2023-02-14] MEDS ORDERED: chlordiazePOXIDE HCL 10 MG CAPSULE PO SCH (05:00)
[2023-02-14] MEDS: methaDONE HCL 40 MG DISPERSABLE TABLET PO SCH (05:41)
[2023-02-14] MEDS: NICOTINE POLACRILEX 2 MG GUM BUC PRN ×6 (05:41→22:26)
[2023-02-14] MEDS: hydrOXYzine PAMOATE 25 MG CAPSULE (FP) PO PRN ×2 (05:42→17:23)
[2023-02-14] MEDS: NICOTINE 14 MG/24 HOURS TOPICAL PATCH TD SCH (09:01)
[2023-02-14] MEDS: PRENATAL VITAMINS W/ FOLIC ACID TABLET (FP) PO SCH (10:12)
[2023-02-14] MEDS: METHOCARBAMOL 500 MG TABLET PO PRN ×3 (10:13→22:23)
[2023-02-14] MEDS: diazePAM 5 MG TABLET PO SCH ×2 (10:13→22:24)
[2023-02-14 19:41] LABS: HEMATOCRIT 38.9 % (35.4-49); MCH 30.8 pg (25.7-33.7); MCHC 33.5 g/dl (32.0-35.9); MEAN PLT VOLUME 9.1 fl (7.5-11.1); PLATELET COUNT 210 10^3/uL (134-434); RBC 4.23 M/mm3 (4.00-5.60); RDW 14.2 % (11.9-15.9); WHITE BLOOD COUNT 5.6 K/mm3 (4.0-10.0)
[2023-02-14 19:45] LABS: POTASSIUM 4.2 mmol/L (3.5-5.1)
[2023-02-14 19:47] LABS: ALBUMIN 3.8 g/dl (3.4-5.0); BLOOD UREA NITROGEN 13.6 mg/dL (7-18); CALCIUM 8.7 mg/dL (8.5-10.1)
[2023-02-14 19:52] LABS: BILIRUBIN,TOTAL 0.3 mg/dL (0.2-1); TOT PROT 6.3 g/dl (6.4-8.2)
[2023-02-14] MEDS: THIAMINE HCL 100 MG TABLET (FP) PO SCH (22:23)
[2023-02-14] MEDS: MELATONIN 5 MG TABLETS PO SCH (22:23)
[2023-02-14] MEDS: traZODone HCL 50 MG TABLET (FP) PO SCH (22:23)
[2023-02-15] MEDS ORDERED: chlordiazePOXIDE HCL 10 MG CAPSULE PO ONE (05:00)
[2023-02-15] MEDS: methaDONE HCL 40 MG DISPERSABLE TABLET PO SCH (05:39)
[2023-02-15] MEDS: NICOTINE POLACRILEX 2 MG GUM BUC PRN ×6 (05:47→22:21)
[2023-02-15] MEDS ORDERED: diazePAM 5 MG TABLET PO ONE (06:00)
[2023-02-15] MEDS: PRENATAL VITAMINS W/ FOLIC ACID TABLET (FP) PO SCH (10:43)
[2023-02-15] MEDS: NICOTINE 14 MG/24 HOURS TOPICAL PATCH TD SCH (10:43)
[2023-02-15] MEDS: hydrOXYzine PAMOATE 25 MG CAPSULE (FP) PO PRN ×2 (10:45→19:17)
[2023-02-15] MEDS: METHOCARBAMOL 500 MG TABLET PO PRN ×2 (10:45→19:17)
[2023-02-15] MEDS: THIAMINE HCL 100 MG TABLET (FP) PO SCH (22:19)
[2023-02-15] MEDS: MELATONIN 5 MG TABLETS PO SCH (22:19)
[2023-02-15] MEDS: traZODone HCL 50 MG TABLET (FP) PO SCH (22:19)
[2023-02-16] MEDS: methaDONE HCL 40 MG DISPERSABLE TABLET PO SCH (05:56)
[2023-02-16] MEDS ORDERED: diazePAM 5 MG TABLET PO ONE (06:00)
[2023-02-16] MEDS: METHOCARBAMOL 500 MG TABLET PO PRN ×2 (06:00→12:22)
[2023-02-16] MEDS: NICOTINE POLACRILEX 2 MG GUM BUC PRN ×3 (06:02→12:22)
[2023-02-16] MEDS: hydrOXYzine PAMOATE 25 MG CAPSULE (FP) PO PRN (09:17)
[2023-02-16] MEDS: PRENATAL VITAMINS W/ FOLIC ACID TABLET (FP) PO SCH (09:17)
[2023-02-16] MEDS: NICOTINE 14 MG/24 HOURS TOPICAL PATCH TD SCH (09:20)
[2023-02-16 09:44] VITALS: TEMP 97.8
[2023-02-16 13:25] VITALS: BP 100/65; PULSE 70; RESP 18
== END 2023-02-16 14:45 | disposition home or self-care (01) | DRG 773 ==
LOC: YASAS 12:05 → Y6N 14:32
PROVIDERS: ADMIT Allergy & Immunology; ATTEND Surgery
PROC: HZ2ZZZZ Detoxification Services for Substance Abuse Treatment (ICD-10-PCS; principal; 2023-02-10)
DX: F10.230 Alcohol dependence with withdrawal, uncomplicated (principal); F11.20 Opioid dependence, uncomplicated; F14.20 Cocaine dependence, uncomplicated; F17.213 Nicotine dependence, cigarettes, with withdrawal; F19.280 Other psychoactive substance dependence with psychoactive substance-induced anxiety disorder; F19.282 Other psychoactive substance dependence with psychoactive substance-induced sleep disorder; F32.A Depression, unspecified; R63.6 Underweight; Z68.21 Body mass index [BMI] 21.0-21.9, adult; Z62.810 Personal history of physical and sexual abuse in childhood
CPT/HCPCS: 36415; 80053; 85027; 87635; 87811; 93005; 93010

== ENCOUNTER 2023-02-16 14:52 | Inpatient (IN) | payer OTHER ==
[~2023-02-16 14:52] MED LIST: ACETAMINOPHEN 325 MG TABLET (FP) PO PRN; BENZOCAINE/MENTHOL (CHLORASEPTIC ) LOZENGE MM PRN; BENZONATATE 200 MG CAPSULE PO PRN; COLLOIDAL OATMEAL 1 BAR EACH TP PRN; LOPERAMIDE HCL 2 MG CAPSULE PO PRN; MAG HYDROX/AL HYDROX/SIMETH 30 ML UNIT-DOSE CUP PO PRN; MAGNESIUM HYDROX 2400MG/30ML ORAL SUSPENSION 30 ML CUP PO PRN; NALOXONE HCL (KLOXXADO) 8 MG SPRAY NS PRN; NALOXONE HCL 0.4 MG/ML VIAL IVPUSH PRN; POLYETHYLENE GLYCOL (HEALTHYLAX) 3350 17 GM PACKET PO PRN; guaiFENesin 600 MG TABLET.ER (FP) PO PRN
[2023-02-16] MEDS: hydrOXYzine PAMOATE 25 MG CAPSULE (FP) PO PRN (17:43)
[2023-02-16] MEDS: METHOCARBAMOL 500 MG TABLET PO PRN (17:44)
[2023-02-16] MEDS: NICOTINE POLACRILEX 2 MG GUM BUC PRN ×2 (17:44→21:06)
[2023-02-16] MEDS: THIAMINE HCL 100 MG TABLET (FP) PO SCH (21:05)
[2023-02-16] MEDS: traZODone HCL 50 MG TABLET (FP) PO SCH (21:05)
[2023-02-16] MEDS: MELATONIN 5 MG TABLETS PO SCH (21:05)
[2023-02-17] MEDS: methaDONE HCL 40 MG DISPERSABLE TABLET PO SCH (06:22)
[2023-02-17] MEDS: NICOTINE POLACRILEX 2 MG GUM BUC PRN (06:23)
[2023-02-17] MEDS: METHOCARBAMOL 500 MG TABLET PO PRN ×3 (06:24→21:03)
[2023-02-17] MEDS ORDERED: SIMETHICONE 80 MG TAB.CHEW (FP) PO PRN (10:18)
[2023-02-17] MEDS: hydrOXYzine PAMOATE 25 MG CAPSULE (FP) PO PRN (10:18)
[2023-02-17] MEDS: NICOTINE 14 MG/24 HOURS TOPICAL PATCH TD PRN (10:18)
[2023-02-17] MEDS: PRENATAL VITAMINS W/ FOLIC ACID TABLET (FP) PO SCH (10:18)
[2023-02-17] MEDS ORDERED: BISMUTH SUBSALICYLATE 262 MG/15 ML BTL PO PRN (10:19)
[2023-02-17] MEDS: NICOTINE POLACRILEX 4 MG GUM BUC PRN ×4 (10:19→21:04)
[2023-02-17] MEDS: MELATONIN 5 MG TABLETS PO SCH (21:02)
[2023-02-17] MEDS: THIAMINE HCL 100 MG TABLET (FP) PO SCH (21:02)
[2023-02-17] MEDS: traZODone HCL 50 MG TABLET (FP) PO SCH (21:03)
[2023-02-18] MEDS: methaDONE HCL 40 MG DISPERSABLE TABLET PO SCH (06:17)
[2023-02-18] MEDS: METHOCARBAMOL 500 MG TABLET PO PRN ×2 (06:19→21:06)
[2023-02-18] MEDS: NICOTINE POLACRILEX 4 MG GUM BUC PRN ×5 (06:19→21:07)
[2023-02-18] MEDS: NICOTINE 14 MG/24 HOURS TOPICAL PATCH TD PRN (08:54)
[2023-02-18] MEDS: PRENATAL VITAMINS W/ FOLIC ACID TABLET (FP) PO SCH (09:00)
[2023-02-18] MEDS: hydrOXYzine PAMOATE 25 MG CAPSULE (FP) PO PRN (10:47)
[2023-02-18] MEDS: IBUPROFEN 600 MG TABLET (FP) PO PRN (17:21)
[2023-02-18] MEDS: THIAMINE HCL 100 MG TABLET (FP) PO SCH (21:06)
[2023-02-18] MEDS: MELATONIN 5 MG TABLETS PO SCH (21:06)
[2023-02-18] MEDS: traZODone HCL 50 MG TABLET (FP) PO SCH (21:07)
[2023-02-19] MEDS: methaDONE HCL 40 MG DISPERSABLE TABLET PO SCH (06:29)
[2023-02-19] MEDS: METHOCARBAMOL 500 MG TABLET PO PRN ×2 (06:29→13:36)
[2023-02-19] MEDS: NICOTINE POLACRILEX 4 MG GUM BUC PRN ×2 (06:29→13:36)
[2023-02-19] MEDS: PRENATAL VITAMINS W/ FOLIC ACID TABLET (FP) PO SCH (09:45)
[2023-02-19] MEDS: NICOTINE 14 MG/24 HOURS TOPICAL PATCH TD PRN (09:46)
[2023-02-19] MEDS: hydrOXYzine PAMOATE 25 MG CAPSULE (FP) PO PRN ×2 (09:46→21:08)
[2023-02-19] MEDS: MELATONIN 5 MG TABLETS PO SCH (21:08)
[2023-02-19] MEDS: THIAMINE HCL 100 MG TABLET (FP) PO SCH (21:08)
[2023-02-19] MEDS: traZODone HCL 50 MG TABLET (FP) PO SCH (21:08)
[2023-02-20] MEDS: methaDONE HCL 40 MG DISPERSABLE TABLET PO SCH (06:14)
[2023-02-20] MEDS: hydrOXYzine PAMOATE 25 MG CAPSULE (FP) PO PRN ×2 (06:14→21:10)
[2023-02-20] MEDS: NICOTINE POLACRILEX 4 MG GUM BUC PRN ×5 (06:15→21:11)
[2023-02-20] MEDS: METHOCARBAMOL 500 MG TABLET PO PRN ×2 (09:50→17:44)
[2023-02-20] MEDS: NICOTINE 14 MG/24 HOURS TOPICAL PATCH TD PRN (09:50)
[2023-02-20] MEDS: PRENATAL VITAMINS W/ FOLIC ACID TABLET (FP) PO SCH (10:06)
[2023-02-20] MEDS: IBUPROFEN 400 MG TABLET (FP) PO PRN (17:43)
[2023-02-20] MEDS: THIAMINE HCL 100 MG TABLET (FP) PO SCH (21:10)
[2023-02-20] MEDS: MELATONIN 5 MG TABLETS PO SCH (21:10)
[2023-02-20] MEDS: traZODone HCL 50 MG TABLET (FP) PO SCH (21:10)
[2023-02-21] MEDS: methaDONE HCL 40 MG DISPERSABLE TABLET PO SCH (06:29)
[2023-02-21] MEDS: hydrOXYzine PAMOATE 25 MG CAPSULE (FP) PO PRN ×3 (06:29→21:18)
[2023-02-21] MEDS: NICOTINE POLACRILEX 4 MG GUM BUC PRN ×3 (06:31→12:55)
[2023-02-21] MEDS: METHOCARBAMOL 500 MG TABLET PO PRN (09:06)
[2023-02-21] MEDS: NICOTINE 14 MG/24 HOURS TOPICAL PATCH TD PRN (09:06)
[2023-02-21] MEDS: PRENATAL VITAMINS W/ FOLIC ACID TABLET (FP) PO SCH (09:07)
[2023-02-21] MEDS: traZODone HCL 50 MG TABLET (FP) PO SCH (21:18)
[2023-02-21] MEDS: THIAMINE HCL 100 MG TABLET (FP) PO SCH (21:18)
[2023-02-21] MEDS: MELATONIN 5 MG TABLETS PO SCH (21:18)
[2023-02-22] MEDS: methaDONE HCL 40 MG DISPERSABLE TABLET PO SCH (06:20)
[2023-02-22] MEDS: hydrOXYzine PAMOATE 25 MG CAPSULE (FP) PO PRN ×2 (09:34→21:12)
[2023-02-22] MEDS: PRENATAL VITAMINS W/ FOLIC ACID TABLET (FP) PO SCH (09:34)
[2023-02-22] MEDS: NICOTINE POLACRILEX 4 MG GUM BUC PRN ×4 (09:34→21:11)
[2023-02-22] MEDS: METHOCARBAMOL 500 MG TABLET PO PRN (09:34)
[2023-02-22] MEDS: THIAMINE HCL 100 MG TABLET (FP) PO SCH (21:10)
[2023-02-22] MEDS: traZODone HCL 50 MG TABLET (FP) PO SCH (21:11)
[2023-02-22] MEDS: MELATONIN 5 MG TABLETS PO SCH (21:11)
[2023-02-23] MEDS: NICOTINE POLACRILEX 4 MG GUM BUC PRN ×5 (06:26→21:04)
[2023-02-23] MEDS: methaDONE HCL 40 MG DISPERSABLE TABLET PO SCH (06:26)
[2023-02-23] MEDS: hydrOXYzine PAMOATE 25 MG CAPSULE (FP) PO PRN ×2 (06:26→17:28)
[2023-02-23] MEDS: PRENATAL VITAMINS W/ FOLIC ACID TABLET (FP) PO SCH (09:47)
[2023-02-23] MEDS: NICOTINE 14 MG/24 HOURS TOPICAL PATCH TD PRN (09:47)
[2023-02-23] MEDS: METHOCARBAMOL 500 MG TABLET PO SCH ×2 (12:58→21:03)
[2023-02-23] MEDS: MELATONIN 5 MG TABLETS PO SCH (21:03)
[2023-02-23] MEDS: THIAMINE HCL 100 MG TABLET (FP) PO SCH (21:03)
[2023-02-23] MEDS: traZODone HCL 50 MG TABLET (FP) PO SCH (21:03)
[2023-02-24] MEDS: hydrOXYzine PAMOATE 25 MG CAPSULE (FP) PO PRN ×3 (06:09→21:25)
[2023-02-24] MEDS: methaDONE HCL 40 MG DISPERSABLE TABLET PO SCH (06:09)
[2023-02-24] MEDS: NICOTINE POLACRILEX 4 MG GUM BUC PRN ×4 (06:10→21:25)
[2023-02-24] MEDS: PRENATAL VITAMINS W/ FOLIC ACID TABLET (FP) PO SCH (09:56)
[2023-02-24] MEDS: METHOCARBAMOL 500 MG TABLET PO SCH ×2 (09:56→21:25)
[2023-02-24] MEDS: NICOTINE 14 MG/24 HOURS TOPICAL PATCH TD PRN (09:56)
[2023-02-24] MEDS: THIAMINE HCL 100 MG TABLET (FP) PO SCH (21:25)
[2023-02-24] MEDS: traZODone HCL 50 MG TABLET (FP) PO SCH (21:25)
[2023-02-24] MEDS: MELATONIN 5 MG TABLETS PO SCH (21:26)
[2023-02-25] MEDS: methaDONE HCL 40 MG DISPERSABLE TABLET PO SCH (06:21)
[2023-02-25] MEDS: hydrOXYzine PAMOATE 25 MG CAPSULE (FP) PO PRN ×2 (06:21→21:15)
[2023-02-25] MEDS: NICOTINE POLACRILEX 4 MG GUM BUC PRN ×3 (06:21→12:23)
[2023-02-25] MEDS: METHOCARBAMOL 500 MG TABLET PO SCH ×2 (09:26→21:14)
[2023-02-25] MEDS: NICOTINE 14 MG/24 HOURS TOPICAL PATCH TD PRN (09:26)
[2023-02-25] MEDS: PRENATAL VITAMINS W/ FOLIC ACID TABLET (FP) PO SCH (09:26)
[2023-02-25] MEDS: IBUPROFEN 600 MG TABLET (FP) PO PRN (17:52)
[2023-02-25] MEDS: MELATONIN 5 MG TABLETS PO SCH (21:13)
[2023-02-25] MEDS: THIAMINE HCL 100 MG TABLET (FP) PO SCH (21:13)
[2023-02-25] MEDS: traZODone HCL 50 MG TABLET (FP) PO SCH (21:14)
[2023-02-26] MEDS: methaDONE HCL 40 MG DISPERSABLE TABLET PO SCH (06:20)
[2023-02-26] MEDS: hydrOXYzine PAMOATE 25 MG CAPSULE (FP) PO PRN ×2 (06:20→14:35)
[2023-02-26] MEDS: NICOTINE POLACRILEX 4 MG GUM BUC PRN ×5 (06:20→21:12)
[2023-02-26] MEDS: PRENATAL VITAMINS W/ FOLIC ACID TABLET (FP) PO SCH (09:44)
[2023-02-26] MEDS: METHOCARBAMOL 500 MG TABLET PO SCH ×2 (09:45→21:10)
[2023-02-26] MEDS: IBUPROFEN 600 MG TABLET (FP) PO PRN (09:46)
[2023-02-26] MEDS: NICOTINE 14 MG/24 HOURS TOPICAL PATCH TD PRN (11:23)
[2023-02-26] MEDS: MELATONIN 5 MG TABLETS PO SCH (21:10)
[2023-02-26] MEDS: traZODone HCL 50 MG TABLET (FP) PO SCH (21:10)
[2023-02-26] MEDS: THIAMINE HCL 100 MG TABLET (FP) PO SCH (21:43)
[2023-02-27] MEDS: NICOTINE POLACRILEX 4 MG GUM BUC PRN ×4 (06:22→21:05)
[2023-02-27] MEDS: methaDONE HCL 40 MG DISPERSABLE TABLET PO SCH (06:22)
[2023-02-27] MEDS: hydrOXYzine PAMOATE 25 MG CAPSULE (FP) PO PRN ×3 (06:22→21:04)
[2023-02-27] MEDS: METHOCARBAMOL 500 MG TABLET PO SCH ×2 (10:16→21:04)
[2023-02-27] MEDS: NICOTINE 14 MG/24 HOURS TOPICAL PATCH TD PRN (10:16)
[2023-02-27] MEDS: PRENATAL VITAMINS W/ FOLIC ACID TABLET (FP) PO SCH (10:16)
[2023-02-27] MEDS: IBUPROFEN 600 MG TABLET (FP) PO PRN (13:01)
[2023-02-27] MEDS: THIAMINE HCL 100 MG TABLET (FP) PO SCH (21:03)
[2023-02-27] MEDS: traZODone HCL 50 MG TABLET (FP) PO SCH (21:03)
[2023-02-27] MEDS: MELATONIN 5 MG TABLETS PO SCH (21:03)
[2023-02-28] MEDS: methaDONE HCL 40 MG DISPERSABLE TABLET PO SCH (06:27)
[2023-02-28] MEDS: NICOTINE POLACRILEX 4 MG GUM BUC PRN ×5 (06:27→21:11)
[2023-02-28] MEDS: METHOCARBAMOL 500 MG TABLET PO SCH ×2 (09:42→21:10)
[2023-02-28] MEDS: PRENATAL VITAMINS W/ FOLIC ACID TABLET (FP) PO SCH (09:42)
[2023-02-28] MEDS: NICOTINE 14 MG/24 HOURS TOPICAL PATCH TD PRN (09:42)
[2023-02-28] MEDS: hydrOXYzine PAMOATE 25 MG CAPSULE (FP) PO PRN (12:38)
[2023-02-28] MEDS: IBUPROFEN 400 MG TABLET (FP) PO PRN (12:38)
[2023-02-28] MEDS: THIAMINE HCL 100 MG TABLET (FP) PO SCH (21:10)
[2023-02-28] MEDS: traZODone HCL 50 MG TABLET (FP) PO SCH (21:10)
[2023-02-28] MEDS: MELATONIN 5 MG TABLETS PO SCH (21:11)
[2023-03-01] MEDS: methaDONE HCL 40 MG DISPERSABLE TABLET PO SCH (06:20)
[2023-03-01] MEDS: hydrOXYzine PAMOATE 25 MG CAPSULE (FP) PO PRN ×3 (06:20→21:07)
[2023-03-01] MEDS: NICOTINE POLACRILEX 4 MG GUM BUC PRN ×5 (06:21→21:08)
[2023-03-01] MEDS: METHOCARBAMOL 500 MG TABLET PO SCH ×2 (09:37→21:07)
[2023-03-01] MEDS: IBUPROFEN 600 MG TABLET (FP) PO PRN (09:37)
[2023-03-01] MEDS: PRENATAL VITAMINS W/ FOLIC ACID TABLET (FP) PO SCH (09:37)
[2023-03-01] MEDS: NICOTINE 14 MG/24 HOURS TOPICAL PATCH TD PRN (09:42)
[2023-03-01] MEDS: traZODone HCL 50 MG TABLET (FP) PO SCH (21:07)
[2023-03-01] MEDS: THIAMINE HCL 100 MG TABLET (FP) PO SCH (21:07)
[2023-03-01] MEDS: MELATONIN 5 MG TABLETS PO SCH (21:11)
[2023-03-02] MEDS: hydrOXYzine PAMOATE 25 MG CAPSULE (FP) PO PRN ×3 (06:36→21:17)
[2023-03-02] MEDS: methaDONE HCL 40 MG DISPERSABLE TABLET PO SCH (06:36)
[2023-03-02] MEDS: NICOTINE POLACRILEX 4 MG GUM BUC PRN ×4 (06:37→21:16)
[2023-03-02] MEDS: PRENATAL VITAMINS W/ FOLIC ACID TABLET (FP) PO SCH (09:44)
[2023-03-02] MEDS: METHOCARBAMOL 500 MG TABLET PO SCH ×2 (09:44→21:17)
[2023-03-02] MEDS: NICOTINE 14 MG/24 HOURS TOPICAL PATCH TD PRN (09:46)
[2023-03-02] MEDS: traZODone HCL 50 MG TABLET (FP) PO SCH (21:17)
[2023-03-02] MEDS: MELATONIN 5 MG TABLETS PO SCH (21:17)
[2023-03-02] MEDS: THIAMINE HCL 100 MG TABLET (FP) PO SCH (21:19)
[2023-03-03] MEDS: methaDONE HCL 40 MG DISPERSABLE TABLET PO SCH (06:18)
[2023-03-03] MEDS: hydrOXYzine PAMOATE 25 MG CAPSULE (FP) PO PRN ×2 (06:18→21:19)
[2023-03-03] MEDS: NICOTINE POLACRILEX 4 MG GUM BUC PRN ×5 (06:19→21:20)
[2023-03-03] MEDS: PRENATAL VITAMINS W/ FOLIC ACID TABLET (FP) PO SCH (09:37)
[2023-03-03] MEDS: NICOTINE 14 MG/24 HOURS TOPICAL PATCH TD PRN (09:37)
[2023-03-03] MEDS: METHOCARBAMOL 500 MG TABLET PO SCH ×2 (09:37→21:19)
[2023-03-03] MEDS: traZODone HCL 50 MG TABLET (FP) PO SCH (21:19)
[2023-03-03] MEDS: MELATONIN 5 MG TABLETS PO SCH (21:19)
[2023-03-03] MEDS: THIAMINE HCL 100 MG TABLET (FP) PO SCH (21:20)
[2023-03-04] MEDS: methaDONE HCL 40 MG DISPERSABLE TABLET PO SCH (06:15)
[2023-03-04] MEDS: hydrOXYzine PAMOATE 25 MG CAPSULE (FP) PO PRN ×2 (06:15→21:12)
[2023-03-04] MEDS: NICOTINE POLACRILEX 4 MG GUM BUC PRN ×4 (06:16→21:13)
[2023-03-04] MEDS: METHOCARBAMOL 500 MG TABLET PO SCH ×2 (09:57→21:12)
[2023-03-04] MEDS: PRENATAL VITAMINS W/ FOLIC ACID TABLET (FP) PO SCH (09:57)
[2023-03-04] MEDS: NICOTINE 14 MG/24 HOURS TOPICAL PATCH TD PRN (09:58)
[2023-03-04] MEDS: IBUPROFEN 600 MG TABLET (FP) PO PRN (12:08)
[2023-03-04] MEDS: MELATONIN 5 MG TABLETS PO SCH (21:11)
[2023-03-04] MEDS: THIAMINE HCL 100 MG TABLET (FP) PO SCH (21:11)
[2023-03-04] MEDS: traZODone HCL 50 MG TABLET (FP) PO SCH (21:12)
[2023-03-05] MEDS: NICOTINE POLACRILEX 4 MG GUM BUC PRN ×4 (06:13→21:10)
[2023-03-05] MEDS: hydrOXYzine PAMOATE 25 MG CAPSULE (FP) PO PRN ×3 (06:13→21:09)
[2023-03-05] MEDS: methaDONE HCL 40 MG DISPERSABLE TABLET PO SCH (06:13)
[2023-03-05] MEDS: NICOTINE 14 MG/24 HOURS TOPICAL PATCH TD PRN (09:58)
[2023-03-05] MEDS: METHOCARBAMOL 500 MG TABLET PO SCH ×2 (09:58→21:10)
[2023-03-05] MEDS: PRENATAL VITAMINS W/ FOLIC ACID TABLET (FP) PO SCH (09:58)
[2023-03-05] MEDS: THIAMINE HCL 100 MG TABLET (FP) PO SCH (21:09)
[2023-03-05] MEDS: MELATONIN 5 MG TABLETS PO SCH (21:09)
[2023-03-05] MEDS: traZODone HCL 50 MG TABLET (FP) PO SCH (21:09)
[2023-03-06] MEDS: methaDONE HCL 40 MG DISPERSABLE TABLET PO SCH (06:20)
[2023-03-06] MEDS: hydrOXYzine PAMOATE 25 MG CAPSULE (FP) PO PRN ×2 (06:20→21:09)
[2023-03-06] MEDS: NICOTINE POLACRILEX 4 MG GUM BUC PRN ×4 (06:22→21:10)
[2023-03-06] MEDS: NICOTINE 14 MG/24 HOURS TOPICAL PATCH TD PRN (10:09)
[2023-03-06] MEDS: PRENATAL VITAMINS W/ FOLIC ACID TABLET (FP) PO SCH (10:09)
[2023-03-06] MEDS: METHOCARBAMOL 500 MG TABLET PO SCH ×2 (10:09→21:09)
[2023-03-06] MEDS: THIAMINE HCL 100 MG TABLET (FP) PO SCH (21:09)
[2023-03-06] MEDS: traZODone HCL 50 MG TABLET (FP) PO SCH (21:09)
[2023-03-06] MEDS: MELATONIN 5 MG TABLETS PO SCH (21:09)
[2023-03-07] MEDS: methaDONE HCL 40 MG DISPERSABLE TABLET PO SCH (05:42)
[2023-03-07] MEDS: hydrOXYzine PAMOATE 25 MG CAPSULE (FP) PO PRN ×2 (05:44→21:10)
[2023-03-07] MEDS: NICOTINE POLACRILEX 4 MG GUM BUC PRN ×4 (05:45→17:18)
[2023-03-07] MEDS: NICOTINE 14 MG/24 HOURS TOPICAL PATCH TD PRN (09:23)
[2023-03-07] MEDS: METHOCARBAMOL 500 MG TABLET PO SCH ×2 (09:23→21:10)
[2023-03-07] MEDS: PRENATAL VITAMINS W/ FOLIC ACID TABLET (FP) PO SCH (09:23)
[2023-03-07] MEDS: traZODone HCL 50 MG TABLET (FP) PO SCH (21:10)
[2023-03-07] MEDS: THIAMINE HCL 100 MG TABLET (FP) PO SCH (21:10)
[2023-03-07] MEDS: MELATONIN 5 MG TABLETS PO SCH (21:10)
[2023-03-08] MEDS: methaDONE HCL 40 MG DISPERSABLE TABLET PO SCH (06:20)
[2023-03-08] MEDS: hydrOXYzine PAMOATE 25 MG CAPSULE (FP) PO PRN ×2 (06:20→21:11)
[2023-03-08] MEDS: METHOCARBAMOL 500 MG TABLET PO SCH ×2 (09:23→21:11)
[2023-03-08] MEDS: PRENATAL VITAMINS W/ FOLIC ACID TABLET (FP) PO SCH (09:23)
[2023-03-08] MEDS: NICOTINE 14 MG/24 HOURS TOPICAL PATCH TD PRN (09:23)
[2023-03-08] MEDS: NICOTINE POLACRILEX 4 MG GUM BUC PRN ×4 (09:23→21:12)
[2023-03-08] MEDS: THIAMINE HCL 100 MG TABLET (FP) PO SCH (21:11)
[2023-03-08] MEDS: traZODone HCL 50 MG TABLET (FP) PO SCH (21:11)
[2023-03-08] MEDS: MELATONIN 5 MG TABLETS PO SCH (21:11)
[2023-03-09] MEDS: methaDONE HCL 40 MG DISPERSABLE TABLET PO SCH (06:16)
[2023-03-09] MEDS: hydrOXYzine PAMOATE 25 MG CAPSULE (FP) PO PRN ×2 (06:17→14:27)
[2023-03-09] MEDS: NICOTINE POLACRILEX 4 MG GUM BUC PRN ×4 (06:18→21:16)
[2023-03-09] MEDS: NICOTINE 14 MG/24 HOURS TOPICAL PATCH TD PRN (09:32)
[2023-03-09] MEDS: PRENATAL VITAMINS W/ FOLIC ACID TABLET (FP) PO SCH (09:33)
[2023-03-09] MEDS: METHOCARBAMOL 500 MG TABLET PO SCH ×2 (09:33→21:15)
[2023-03-09] MEDS: IBUPROFEN 400 MG TABLET (FP) PO PRN (14:27)
[2023-03-09] MEDS: THIAMINE HCL 100 MG TABLET (FP) PO SCH (21:14)
[2023-03-09] MEDS: traZODone HCL 50 MG TABLET (FP) PO SCH (21:15)
[2023-03-09] MEDS: MELATONIN 5 MG TABLETS PO SCH (21:15)
[2023-03-10] MEDS: methaDONE HCL 40 MG DISPERSABLE TABLET PO SCH (06:04)
[2023-03-10] MEDS: hydrOXYzine PAMOATE 25 MG CAPSULE (FP) PO PRN (06:04)
[2023-03-10] MEDS: NICOTINE POLACRILEX 4 MG GUM BUC PRN (06:05)
[2023-03-10 08:38] VITALS: BP 107/68; PULSE 53; RESP 17; TEMP 97.7
== END 2023-03-10 09:14 | disposition home or self-care (01) | DRG 772 ==
LOC: YASAS 14:52 → Y3E 14:53
PROVIDERS: ADMIT Allergy & Immunology; ATTEND Psychiatry & Neurology Pain Medicine
PROC: HZ42ZZZ Group Counseling for Substance Abuse Treatment, Cognitive-Behavioral (ICD-10-PCS; principal; 2023-02-16)
DX: F10.20 Alcohol dependence, uncomplicated (principal); F14.20 Cocaine dependence, uncomplicated; F11.20 Opioid dependence, uncomplicated; F17.210 Nicotine dependence, cigarettes, uncomplicated; F41.9 Anxiety disorder, unspecified; F32.A Depression, unspecified; F43.10 Post-traumatic stress disorder, unspecified; G47.00 Insomnia, unspecified
CPT/HCPCS: 36415; 86803

== ENCOUNTER 2023-07-31 08:29 | Inpatient (IN) | payer OTHER ==
[2023-07-31 09:13] VITALS: BMI 23.6
[2023-07-31] MEDS ORDERED: NALOXONE HCL 0.4 MG/ML VIAL IM PRN (09:56)
[2023-07-31] MEDS ORDERED: IBUPROFEN 400 MG TABLET (FP) PO PRN (09:56)
[2023-07-31] MEDS ORDERED: BENZONATATE 200 MG CAPSULE PO PRN (09:56)
[2023-07-31] MEDS ORDERED: BENZOCAINE/MENTHOL (CHLORASEPTIC ) LOZENGE MM PRN (09:56)
[2023-07-31] MEDS ORDERED: POLYETHYLENE GLYCOL (HEALTHYLAX) 3350 17 GM PACKET PO PRN (09:56)
[2023-07-31] MEDS ORDERED: BISMUTH SUBSALICYLATE 524 MG/30 ML PO PRN (09:56)
[2023-07-31] MEDS ORDERED: ACETAMINOPHEN 325 MG TABLET (FP) PO PRN (09:56)
[2023-07-31] MEDS ORDERED: NALOXONE HCL (KLOXXADO) 8 MG SPRAY NS PRN (09:56)
[2023-07-31] MEDS ORDERED: MAG HYDROX/AL HYDROX/SIMETH 30 ML UNIT-DOSE CUP PO PRN (09:56)
[2023-07-31] MEDS ORDERED: LOPERAMIDE HCL 2 MG CAPSULE PO PRN (09:56)
[2023-07-31] MEDS ORDERED: DICYCLOMINE HCL 10 MG CAPSULE PO PRN (09:56)
[2023-07-31] MEDS ORDERED: ONDANSETRON *ODT* 4 MG TABLET SL PRN (09:56)
[2023-07-31] MEDS ORDERED: diazePAM 5 MG TABLET PO PRN (09:56)
[2023-07-31] MEDS ORDERED: guaiFENesin 600 MG TABLET.ER (FP) PO PRN (09:56)
[2023-07-31] MEDS ORDERED: MAGNESIUM HYDROX 2400MG/30ML ORAL SUSPENSION 30 ML CUP PO PRN (09:56)
[2023-07-31] MEDS ORDERED: diazePAM 5 MG TABLET ONE (10:42)
[2023-07-31] MEDS ORDERED: PRENATAL VITAMINS W/ FOLIC ACID TABLET (FP) PO ONE (10:42)
[2023-07-31] MEDS ORDERED: NICOTINE 14 MG/24 HOURS TOPICAL PATCH TD ONE (10:42)
[2023-07-31] MEDS: PRENATAL VITAMINS W/ FOLIC ACID TABLET (FP) PO SCH (10:43)
[2023-07-31] MEDS: diazePAM 5 MG TABLET PO ONE (10:43)
[2023-07-31] MEDS: NICOTINE 14 MG/24 HOURS TOPICAL PATCH TD SCH (10:44)
[2023-07-31] MEDS: diazePAM 5 MG TABLET PO SCH (10:45)
[2023-07-31] MEDS: traZODone HCL 50 MG TABLET (FP) PO SCH (22:29)
[2023-07-31] MEDS: THIAMINE 100 MG TABLET PO SCH (22:29)
[2023-07-31] MEDS: NICOTINE POLACRILEX 2 MG GUM BUC PRN (22:30)
[2023-07-31] MEDS: MELATONIN 5 MG TABLETS PO SCH (22:30)
[2023-08-01] MEDS: methaDONE HCL 40 MG DISPERSABLE TABLET PO SCH (05:38)
[2023-08-01 14:45] LABS: POTASSIUM 4.2 mmol/L (3.5-5.1)
[2023-08-01 14:47] LABS: HEMATOCRIT 39.1 % (35.4-49); HEMOGLOBIN 13.2 GM/dL (11.7-16.9); MCHC 33.7 g/dl (32.0-35.9); MEAN CELL VOLUME 91.9 fl (80-96); MEAN PLT VOLUME 9.1 fl (7.5-11.1); PLATELET COUNT 234 10^3/uL (134-434); RBC 4.25 M/mm3 (4.00-5.60); RDW 14.3 % (11.9-15.9); WHITE BLOOD COUNT 5.8 K/mm3 (4.0-10.0)
[2023-08-01 14:51] LABS: BLOOD UREA NITROGEN 21.1 mg/dL (7-18)
[2023-08-01 14:52] LABS: ALBUMIN 3.5 g/dl (3.4-5.0); CALCIUM 8.7 mg/dL (8.5-10.1)
[2023-08-01 14:54] LABS: CREATININE 0.9 mg/dL (0.55-1.3)
[2023-08-01 14:56] LABS: BILIRUBIN,TOTAL 0.4 mg/dL (0.2-1); TOT PROT 5.9 g/dl (6.4-8.2)
[2023-08-02] MEDS: diazePAM 5 MG TABLET PO SCH (05:42)
[2023-08-02] MEDS: METHOCARBAMOL 500 MG TABLET PO PRN (10:22)
[2023-08-02] MEDS: hydrOXYzine PAMOATE 25 MG CAPSULE (FP) PO PRN (10:22)
[2023-08-02] MEDS: methaDONE HCL 10 MG TABLET PO ONE (12:20)
[2023-08-02] MEDS: LACTULOSE 20 GM/30 ML UDC (FOR ORAL USE ONLY) PO SCH (13:19)
[2023-08-03] MEDS: diazePAM 5 MG TABLET PO SCH (05:31)
[2023-08-03] MEDS: methaDONE 80 MG, methaDONE 10 MG PO SCH (05:31)
[2023-08-03] MEDS ORDERED: methaDONE HCL 40 MG DISPERSABLE TABLET PO SCH (06:00)
[2023-08-03] MEDS: IBUPROFEN 600 MG TABLET (FP) PO PRN (13:26)
[2023-08-05] MEDS: methaDONE 80 MG, methaDONE 10 MG PO ONE (09:43)
[2023-08-05] MEDS ORDERED: methaDONE HCL 10 MG TABLET PO ONE (10:00)
[2023-08-05 10:09] VITALS: BP 91/60; PULSE 85; RESP 16; TEMP 97.7
== END 2023-08-05 11:08 | disposition home or self-care (01) | DRG 773 ==
LOC: YASAS 08:29 → Y6N 10:03
PROVIDERS: ADMIT Allergy & Immunology; ATTEND Surgery
PROC: HZ2ZZZZ Detoxification Services for Substance Abuse Treatment (ICD-10-PCS; principal; 2023-07-31)
DX: F10.230 Alcohol dependence with withdrawal, uncomplicated (principal); F11.20 Opioid dependence, uncomplicated; F14.10 Cocaine abuse, uncomplicated; F17.210 Nicotine dependence, cigarettes, uncomplicated; F19.282 Other psychoactive substance dependence with psychoactive substance-induced sleep disorder; F41.8 Other specified anxiety disorders; F43.10 Post-traumatic stress disorder, unspecified; R79.89 Other specified abnormal findings of blood chemistry; Z62.810 Personal history of physical and sexual abuse in childhood; Z91.410 Personal history of adult physical and sexual abuse; Z56.0 Unemployment, unspecified; Z59.00 Homelessness unspecified; Z63.8 Other specified problems related to primary support group; Z63.0 Problems in relationship with spouse or partner
CPT/HCPCS: 36415; 80053; 80305; 80307; 82140; 85027; 86780; 93005; 93010

== ENCOUNTER 2024-02-26 09:50 | Inpatient (IN) | payer OTHER ==
[2024-02-26] MEDS ORDERED: MAGNESIUM HYDROX 2400MG/30ML ORAL SUSPENSION 30 ML CUP PO PRN (10:17)
[2024-02-26] MEDS ORDERED: LOPERAMIDE HCL 2 MG CAPSULE PO PRN (10:17)
[2024-02-26] MEDS ORDERED: POLYETHYLENE GLYCOL (HEALTHYLAX) 3350 17 GM PACKET PO PRN (10:17)
[2024-02-26] MEDS ORDERED: IBUPROFEN 400 MG TABLET (FP) PO PRN (10:17)
[2024-02-26] MEDS ORDERED: BENZOCAINE/MENTHOL (CHLORASEPTIC ) LOZENGE MM PRN (10:17)
[2024-02-26] MEDS ORDERED: MAG HYDROX/AL HYDROX/SIMETH 30 ML UNIT-DOSE CUP PO PRN (10:17)
[2024-02-26] MEDS ORDERED: NALOXONE (NARCAN) HCL 4 MG/0.1 ML SPRAY NS PRN (10:17)
[2024-02-26] MEDS ORDERED: DICYCLOMINE HCL 10 MG CAPSULE PO PRN (10:17)
[2024-02-26] MEDS ORDERED: ONDANSETRON *ODT* 4 MG TABLET SL PRN (10:17)
[2024-02-26] MEDS ORDERED: ACETAMINOPHEN 325 MG TABLET (FP) PO PRN (10:17)
[2024-02-26] MEDS ORDERED: BENZONATATE 200 MG CAPSULE PO PRN (10:17)
[2024-02-26] MEDS ORDERED: hydrOXYzine PAMOATE 25 MG CAPSULE (FP) PO PRN (10:17)
[2024-02-26] MEDS ORDERED: guaiFENesin 600 MG TABLET.ER (FP) PO PRN (10:17)
[2024-02-26] MEDS ORDERED: BISMUTH SUBSALICYLATE 524 MG/30 ML PO PRN (10:17)
[2024-02-26 10:30] VITALS: BMI 20.9
[2024-02-26] MEDS ORDERED: diazePAM 5 MG TABLET ONE (10:55)
[2024-02-26] MEDS ORDERED: PRENATAL VITAMINS W/ FOLIC ACID TABLET (FP) PO ONE (10:55)
[2024-02-26] MEDS: PRENATAL VITAMINS W/ FOLIC ACID TABLET (FP) PO SCH (10:58)
[2024-02-26] MEDS: diazePAM 5 MG TABLET PO PRN (10:58)
[2024-02-26] MEDS: NICOTINE POLACRILEX 4 MG GUM BUC PRN (12:22)
[2024-02-26] MEDS: IBUPROFEN 600 MG TABLET (FP) PO PRN (12:22)
[2024-02-26] MEDS: diazePAM 5 MG TABLET PO SCH (17:49)
[2024-02-26] MEDS: QUEtiapine FUMARATE 50 MG TABLET PO SCH (22:21)
[2024-02-26] MEDS: MELATONIN 5 MG TABLETS PO SCH (22:21)
[2024-02-26] MEDS: MIRTAZAPINE 15 MG TABLET (FP) PO SCH (22:21)
[2024-02-26] MEDS: THIAMINE 100 MG TABLET PO SCH (22:21)
[2024-02-26] MEDS: METHOCARBAMOL 500 MG TABLET PO PRN (22:21)
[2024-02-27 09:50] LABS: HEMATOCRIT 41.2 % (35.4-49); HEMOGLOBIN 13.6 GM/dL (11.7-16.9); MCH 30.9 pg (25.7-33.7); MCHC 33.1 g/dl (32.0-35.9); MEAN CELL VOLUME 93.4 fl (80-96); MEAN PLT VOLUME 9.3 fl (7.5-11.1); PLATELET COUNT 242 10^3/uL (134-434); RBC 4.42 M/mm3 (4.00-5.60); RDW 13.6 % (11.9-15.9); WHITE BLOOD COUNT 7.4 K/mm3 (4.0-10.0)
[2024-02-27 10:03] LABS: POTASSIUM 4.6 mmol/L (3.5-5.1)
[2024-02-27 10:13] LABS: ALBUMIN 3.8 g/dl (3.4-5.0); BLOOD UREA NITROGEN 23.2 mg/dL (7-18)
[2024-02-27 10:17] LABS: BILIRUBIN,TOTAL 0.2 mg/dL (0.2-1); TOT PROT 6.3 g/dl (6.4-8.2)
[2024-02-27] MEDS: DULoxetine HCL 60 MG CAPSULE.DR PO SCH (10:27)
[2024-02-27 14:03] LABS: HIV INTERPRETATION NEGATIVE (NEGATIVE)
[2024-02-28] MEDS: diazePAM 5 MG TABLET PO SCH (05:26)
[2024-02-29] MEDS: diazePAM 5 MG TABLET PO SCH (05:50)
[2024-02-29] MEDS ORDERED: DULoxetine HCL 30 MG CAPSULE.DR PO ONE (10:21)
[2024-02-29] MEDS: NICOTINE POLACRILEX 4 MG GUM BUC PRN (17:38)
[2024-02-29] MEDS: NALOXONE (NYS OPIOID OVERDOSE PROGRAM) 4 MG/0.1 ML SPRAY NS SCH (17:47)
[2024-03-01] MEDS: diazePAM 5 MG TABLET PO ONE (05:42)
[2024-03-01 09:18] VITALS: BP 112/72; PULSE 103; RESP 18; TEMP 98.9
== END 2024-03-01 09:16 | disposition home or self-care (01) | DRG 773 ==
LOC: YASAS 09:50 → Y3N 10:52
PROVIDERS: ADMIT Allergy & Immunology; ATTEND Surgery
PROC: HZ2ZZZZ Detoxification Services for Substance Abuse Treatment (ICD-10-PCS; principal; 2024-02-26)
DX: F13.230 Sedative, hypnotic or anxiolytic dependence with withdrawal, uncomplicated (principal); F11.20 Opioid dependence, uncomplicated; F14.20 Cocaine dependence, uncomplicated; F17.210 Nicotine dependence, cigarettes, uncomplicated; F43.10 Post-traumatic stress disorder, unspecified; F41.1 Generalized anxiety disorder; F33.1 Major depressive disorder, recurrent, moderate; Z86.69 Personal history of other diseases of the nervous system and sense organs; Z62.810 Personal history of physical and sexual abuse in childhood; Z56.0 Unemployment, unspecified; Z59.01 Sheltered homelessness
CPT/HCPCS: 36415; 80053; 85027; 86780; 86803; 87389; 93005; 93010